=== PATIENT | female | born 1945 | race Two or more races ===

== ENCOUNTER 2024-07-06 18:33 | Inpatient (IN) | payer MEDICARE, OTHER ==
[~2024-07-06] VITALS: Ht 165.1 cm; Wt 110.0 kg
--- NOTE | 2024-07-06 19:05 | ED.PDOC ---
History of Present Illness HPI Comments 79-year-old female with PMHx A-Fib, HTN brought in by EMS presents with a chief complaint of SOB x 1.5 weeks. Patient states that she was at [facility] due to feeling SOB for the past week and a half. Patient was seen, evaluated, had blood work, COVID and Flu swabs, and was diagnosed with Right Lob e Pneumonia. Patient was found to be in A-Fib which is when staff called 911. Patient was sating at 87% on room air and jumped up to 95% on 2L/NC. Patient was flu and COVID negative. No other symptoms or modifying factors present at this time. Chief Complaint: Shortness of Breath Time Seen by MD: 18:53 Reviewed Notes: Medications, Allergies Allergies: Coded Allergies: NO KNOWN ALLERGIES (Unverified , 07/06/24) Information Source: Patient, Emergency Med Personnel Mode of Arrival: EMS Severity: Moderate Timing: Days Duration: Intermittent Prehospital treatment: Oxygen, Other (BLOOD WORK) Past Medical History PAST MEDICAL HISTORY: AFIB, HTN Surgical History: Hysterectomy AUTOMATIC STACKER History: Denies all AUTOMATIC STACKER Hx Family History Family History: Reviewed,noncontributory to illness Social History Smoker: Non-Smoker Alcohol: Denies ETOH Use Drugs: Denies Drug Use Lives In: Home Constitutional: denies: chills, diaphoresis, fatigue, fever, malaise, sweats, weakness, others EENTM: denies: blurred vision, double vision, ear bleeding, ear discharge, ear drainage, ear pain, ear ringing, eye pain, eye redness, hearing loss, mouth pain, mouth swelling, nasal discharge, nose bleeding, nose congestion, nose pain, photophobia, tearing, throat pain, throat swelling, voice changes, others Respiratory: reports: shortness of breath; denies: cough, hemoptysis, orthopnea, SOB at rest, SOB with excertion, stridor, wheezing, others Cardiovascular: reports: others (A-FIB); denies: chest pain, dizzy spells, diaphoresis, Dyspnea on exertion, edema, irregular heart beat, left arm pain, lightheadedness, palpitations, PND, syncope Gastrointestinal: denies: abdomen distended, abdominal pain, blood streaked bowels, constipated, diarrhea, dysphagia, difficulty swallowing, hematemesis, melena, nausea, poor appetite, poor fluid intake, rectal bleeding, rectal pain, vomiting, others Genitourinary: denies: abnormal vagina bleeding, burning, dyspareunia, dysuria, flank pain, frequency, hematuria, incontinence, pain, , vagina discharge, urgency, others Neurological: denies: dizziness, fainting, headache, left sided numbness, left sided weakness, numbness, paresthesia, pre-existing deficit, right sided numbness, right sided weakness, seizure, speech problems, tingling, tremors, weakness, others Musculoskeletal: denies: back pain, gout, joint pain, joint swelling, muscle pain, muscle stiffness, neck pain, others Integumetry: denies: bruises, change in color, change in hair/nails, dryness, laceration, lesions, lumps, rash, wounds, others Allergic/Immunocompromised: denies: Difficulty Healing, Frequent Infections, Hives, Itching, others Hematologic/Lymphatic: denies: anemia, blood clots, easy bleeding, easy bruising, swollen glands, others Endocrine: denies: excessive hunger, excessive sweating, excessive thirst, excessive urination, flushing, intolerance to cold, intolerance to heat, unexplained weight gain, unexplained weight loss, others Psychiatric: denies: anxiety, bipolar disorder, depression, hopeless, panic disorder, schizophrenia, sleepless, suicidal, others All Other Systems: Reviewed and Negative Physical Exam General Appearance: Moderate Distress, Obese HEENT: Normal ENT Inspection, Pharynx Normal, TMs Normal Neck: Full Range of Motion, Non-Tender, Normal, Normal Inspection Respiratory: Chest Non-Tender, Lungs Clear, No Accessory Muscle Use, No Respiratory Distress, Normal Breath Sounds Cardiovascular: Irregular, No Edema, No JVD, No Murmur, No Gallop, Tachycardia Breast Exam: Deferred Gastrointestinal: No Organomegaly, Non Tender, No Pulsatile Mass, Normal Bowel Sounds, Soft Genitalia: Deferred Pelvic: Deferred Rectal: Deferred Extremities: No calf tenderness, Normal capillary refill, Pedal edema Musculoskeletal : Apperance: Normal 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 Was a procedure done?: No EKG EKG : Pulse Rate (adult): 126 Hamer: Normal Cardiac Rhythm: Afib Block: LBBB Hypertrophy: None ST: Normal Differential Dx Considerations may include: Generalized weakness, pneumonia, atrial fibrillation with rapid response X-Ray, Labs, Meds, VS Vital Signs Date Time Temp Pulse Resp B/P (MAP) Pulse Ox O2 Delivery O2 Flow Rate FiO2 07/06/24 19:25 97.2 118 33 154/77 (102) 97.2 07/06/24 19:09 126 07/06/24 19:02 126 07/06/24 18:45 97.3 134 20 169/106 (127) 95 Lab Test 07/06/24 19:41 Range/Units White Blood Count 13.3 H 4.4-10.8 10^3/uL Red Blood Count 4.31 4.0-5.20 10^6/uL Hemoglobin 13.1 12.2-16.2 g/dL Hematocrit 39.2 36.0-46.0 % Mean Corpuscular Volume 91.0 80.0-100.0 fL Mean Corpuscular Hemoglobin 30.4 28.0-32.0 pg Mean Corpuscular Hemoglobin Concent 33.4 32.0-36.0 g/dL Red Cell Distribution Width 13.3 11.8-14.3 % Platelet Count 471 H 140-450 10^3/uL Mean Platelet Volume 7.3 6.9-10.8 fL Neutrophils (%) (Auto) 96.5 H 37.0-80.0 % Lymphocytes (%) (Auto) 1.3 L 10.0-50.0 % Monocytes (%) (Auto) 2.0 0.0-12.0 % Eosinophils (%) (Auto) 0.0 0.0-7.0 % Basophils (%) (Auto) 0.2 0.0-2.0 % Neutrophils # (Auto) 12.8 H 1.6-8.6 10 ^3/uL Lymphocytes # (Auto) 0.2 L 0.4-5.4 10 ^3/uL Monocytes # (Auto) 0.3 0-1.3 10 ^3/uL Eosinophils # (Auto) 0 0-0.8 10 ^3/uL Basophils # (Auto) 0 0-0.2 10 ^3/uL Nucleated Red Blood Cells 0.1 % Sodium Level Pending Potassium Level Pending Chloride Level Pending Carbon Dioxide Level Pending Anion Gap Pending Blood Urea Nitrogen Pending Creatinine Pending Glomerular Filtration Rate Calc Pending BUN/Creatinine Ratio Pending Serum Glucose Pending Calcium Level Pending Total Bilirubin Pending Aspartate Amino Transferase (AST) Pending Alanine Aminotransferase (ALT) Pending Alkaline Phosphatase Pending Total Protein Pending Albumin Pending The patient's CBC shows an elevated white blood cell count of 13.3 The rest of the CBC is within normal limits At this time the chemistry level is pending The patient was being admitted with a diagnosis of atrial fibrillation with rapid response All tests were done over at the facility so at this time the patient was being admitted. Images Reviewed?: Images reviewed and evaluated by me Time of 1ST Reevaluation: 19:23 Reevaluation 1ST: Unchanged Patient Education/Counseling: Diagnosis, Treatment, Prognosis Family Education/Counseling: No Family Present Departure 1 Departure Time of Disposition: 20:38 Impression: Primary Impression: Atrial fibrillation with rapid ventricular response Additional Impression: Pneumonia Qualified Codes: J18.9 - Pneumonia, unspecified organism Disposition: ADMITTED INPATIENT Admit to: Tele Condition: Fair Critical Care Note Critical Care Time?: Yes (45 min-critical care time only) Stability Stability form required: Yes Unstable for transfer: Telemetry monitoring (Telemetry monitoring required), ED Physician Assesment (Clinical assesment) Heart Score Heart Score: Heart Score Response (Comments) Value History N/A 0 EKG N/A 0 Age N/A 0 Risk Factors N/A 0 Troponin N/A 0 Total 0 I personally scribed for ALYCIA RUIZ MD ([email or web address]) on 07/06/24 at 19:05. Electronically submitted by Telly Clifton ([email or web address]). I personally scribed for ALYCIA RUIZ MD ([email or web address]) on 07/06/24 at 19:09. Electronically submitted by Telly Clifton ([email or web address]). ALYCIA RUIZ MD Jul 06, 2024 19:05
--- NOTE | 2024-07-06 19:06 | ECG ---
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
[2024-07-06] MEDS ORDERED: NITROGLYCERIN 0.4 MG SL TAB SL PRN (19:30)
[2024-07-06] MEDS ORDERED: MORPHINE SULFATE INJ 2 MG/ml SYRG IV PRN (19:30)
[2024-07-06 19:52] LABS: Basophils # (auto) 0 10 ^3/uL (0-0.2); Basophils % (auto) 0.2 % (0.0-2.0); Eosinophils # (auto) 0 10 ^3/uL (0-0.8); Hematocrit 39.2 % (36.0-46.0); Hemoglobin 13.1 g/dL (12.2-16.2); Lymphocytes # (auto) 0.2 10 ^3/uL (0.4-5.4); Lymphocytes % (auto) 1.3 % (10.0-50.0); Mean Corpuscular Hemoglobin 30.4 pg (28.0-32.0); Mean Corpuscular Hgb Conc. 33.4 g/dL (32.0-36.0); Monocytes # (auto) 0.3 10 ^3/uL (0-1.3); Neutrophils # (auto) 12.8 10 ^3/uL (1.6-8.6); Neutrophils % (auto) 96.5 % (37.0-80.0); Nucleated Red Blood Cells % 0.1 %; Platelet Count (auto) 471 10^3/uL (140-450); Red Blood Cells 4.31 10^6/uL (4.0-5.20); Red Cell Distribution Width 13.3 % (11.8-14.3); White Blood Cell 13.3 10^3/uL (4.4-10.8)
--- NOTE | 2024-07-06 20:13 | DVH ---
EXAM: XY CHEST PORTABLE TECHNIQUE: Single frontal chest radiograph CLINICAL HISTORY: Acute respiratory failure COMPARISON: None Findings/Impression: Frontal chest radiograph demonstrates no acute osseous or superficial soft tissue abnormalities. The trachea is midline. Borderline cardiomegaly. Bibasilar atelectasis. No pneumothorax, pleural effusions, or consolidations.
[2024-07-06 20:20] LABS: Alanine Aminotransferase 26 U/L (7-40); Anion Gap 12 (5-15); Aspartate Aminotransferase 30 U/L (13-40); BUN/Creatinine Ratio 25.2 (10.0-20.0); Bilirubin, Total 0.4 mg/dL (0.2-1.0); Calcium 9.3 mg/dL (8.7-10.4); Carbon Dioxide 23 mmol/L (20-31); Chloride 101 mmol/L (98-107)
[2024-07-06 20:21] LABS: Total Protein 5.8 g/dL (5.7-8.2)
[2024-07-06] MEDS: DEXTROSE (50%) 50ML SYRG IV ONE (20:30)
[2024-07-06] MEDS: AMIODARONE BOLUS KIT 100 ML IV ONE (20:36)
[2024-07-06 20:51] LABS: Albumin 2.9 g/dL (3.2-4.8); Alkaline Phosphatase 125 U/L (46-116); Blood Urea Nitrogen 36 mg/dL (9-23); Glucose 206 mg/dL (74-106); Potassium 3.3 mmol/L (3.5-5.1); Sodium 136 mmol/L (136-145)
[2024-07-06] MEDS: AMIODARONE 360mg/200mL PREMIX 200 ML IV ONE (20:51)
[2024-07-06] MEDS: InsuLIN REG 1unit/0.01ml Soln (100units/ml) SC ONE (21:51)
[2024-07-06] MEDS: ACCU-CHEK COMFORT CURVE STRIP VI ONE (21:57)
[2024-07-06] MEDS: FUROSEMIDE 40 MG/4 ML VIAL IV SCH (22:12)
[2024-07-06] MEDS: cefTRIAXone 1GM/50ML D5W 50 ML IV SCH (22:16)
[2024-07-06] MEDS: POTASSIUM CHL 20 Meq TABLET PO ONE ×2 (22:23→22:33)
[2024-07-06 23:24] VITALS: BP 120/68; PULSE 78; RESP 18; TEMP 98.4; O2SAT 97
[2024-07-06 23:49] VITALS: PULSE 100; RESP 20; O2SAT 94
[2024-07-06] MEDS: IPRATROPIUM BROM 0.5 MG/2.5ML INH SOL NEB SCH (23:49)
[2024-07-06] MEDS: ALBUTEROL SULF 2.5 MG/0.5ML(0.5%) NEB SOLN NEB SCH (23:49)
[2024-07-06 23:57] VITALS: PULSE 118; RESP 20; O2SAT 99
[2024-07-07] VITALS (17 sets, daily range): BP systolic 110–158; BP diastolic 60–80; PULSE 70–118; RESP 18–21; TEMP 97.2–98.4; O2SAT 93–99
[2024-07-07] MEDS ORDERED: MET25T PO (00:07)
[2024-07-07] MEDS ORDERED: FENO160T PO (00:07)
[2024-07-07] MEDS ORDERED: METF-372 PO (00:07)
[2024-07-07] MEDS ORDERED: BENA-36 PO (00:07)
[2024-07-07] MEDS ORDERED: ATOR20TA50 PO (00:07)
[2024-07-07] MEDS ORDERED: HYDR50TA47 PO (00:07)
[2024-07-07] MEDS ORDERED: DILT120C41 PO (00:07)
[2024-07-07] MEDS: ENOXAPARIN SOD 40 MG/0.4 ML SYRINGE SC ONE (00:47)
[2024-07-07] MEDS: AMIODARONE 360mg/200mL PREMIX 200 ML IV SCH ×2 (01:17→18:05)
[2024-07-07 06:35] LABS: Basophils # (auto) 0 10 ^3/uL (0-0.2); Eosinophils # (auto) 0 10 ^3/uL (0-0.8); Hematocrit 34.5 % (36.0-46.0); Hemoglobin 11.6 g/dL (12.2-16.2); Lymphocytes # (auto) 0.4 10 ^3/uL (0.4-5.4); Lymphocytes % (auto) 3.4 % (10.0-50.0); Mean Corpuscular Hemoglobin 30.6 pg (28.0-32.0); Mean Corpuscular Hgb Conc. 33.6 g/dL (32.0-36.0); Mean Corpuscular Volume 91.1 fL (80.0-100.0); Monocytes # (auto) 0.5 10 ^3/uL (0-1.3); Monocytes % (auto) 4.3 % (0.0-12.0); Neutrophils # (auto) 11.1 10 ^3/uL (1.6-8.6); Neutrophils % (auto) 92.3 % (37.0-80.0); Platelet Count (auto) 460 10^3/uL (140-450); Red Blood Cells 3.78 10^6/uL (4.0-5.20); Red Cell Distribution Width 13.2 % (11.8-14.3); White Blood Cell 12.1 10^3/uL (4.4-10.8)
[2024-07-07 06:55] LABS: Alanine Aminotransferase 17 U/L (7-40); Alkaline Phosphatase 107 U/L (46-116); Anion Gap 9 (5-15); BUN/Creatinine Ratio 22.1 (10.0-20.0); Calcium 9.6 mg/dL (8.7-10.4); Carbon Dioxide 22 mmol/L (20-31); Chloride 104 mmol/L (98-107)
[2024-07-07 06:56] LABS: Aspartate Aminotransferase 20 U/L (13-40); Total Protein 5.9 g/dL (5.7-8.2)
[2024-07-07 06:58] LABS: Bilirubin, Total 0.2 mg/dL (0.2-1.0); Blood Urea Nitrogen 32 mg/dL (9-23); Glucose 190 mg/dL (74-106); Potassium 3.2 mmol/L (3.5-5.1); Sodium 135 mmol/L (136-145)
[2024-07-07] MEDS ORDERED: AZITHROMYCIN 500MG/ 250ML 250 ML IV SCH ×2 (07:30→10:00)
[2024-07-07] MEDS ORDERED: POTASSIUM CHL 20 Meq TABLET PO ONE (07:30)
--- NOTE | 2024-07-07 07:44 | DVHHP2 ---
Admitting Diagnosis: Acute respiratory failure Afib with RVR History of Present Illness HPI 79 y.o. female with Afib, s/p 2 ablation procedures, last one 2 years ago was brought to the ER from [facility], where she was diagnosed with PNA and had EKG showing AFIB with RVR. Patient had repeat EKG in the ER with HR 134. Patient stated that she has had cough with SOB for over a week now. Denies CP. She has h/o HTN, DM, dyslipidemia. Patient has a bed sore in her lumbar area with redness and abrasions. Patient had b/l lower leg edema. She is not on Lasix. ECHO is pending Home Meds Reported Medications Atorvastatin Calcium (ATORVASTATIN CALCIUM) 20 Mg Tab, 1 TAB PO HS 07/07/24 Diltiazem Hcl (Dilt-Xr) 120 Mg Cap, 1 TAB PO DAILY 07/07/24 Fenofibrate (Fenofibrate) 160 Mg Tab, 1 TAB PO DAILY 07/07/24 Hydralazine Hcl (Hydralazine Hcl) 50 Mg Tab, 1 TAB PO BID 07/07/24 Benazepril Hcl (Benazepril Hcl) 20 Mg Tab, 1 TAB PO BID 07/07/24 Metoprolol Tartrate (Lopressor) 25 Mg Tb, 3 TAB PO BID 07/07/24 Metformin Hydrochloride (Metformin Hcl) 1,000 Mg Tab, 500 MG PO BID 07/07/24 Past Medical History Cardiac: AFIB, CHF, HTN, Hyperlipidemia Endocrine: NIDDM Patient Family History: FHx: heart disease G8 MOTHER, , Age: 60 years and older G8 FATHER, , Age: 60 years and older Review of Systems Pulmonary/Respiratory: Dyspnea, Cough Cardiovascular: Palpitations H&P Exam Vital Signs Vital Signs Date Time Temp Pulse Resp B/P (MAP) Pulse Ox O2 Delivery O2 Flow Rate FiO2 07/07/24 06:15 114 20 98 07/07/24 06:09 Nasal Cannula 4.0 07/07/24 06:09 36 07/07/24 05:33 110/60 07/07/24 05:00 98.4 98.4 General Appeara: Obese Head Exam: Normal inspection Neck Exam: Normal inspection Eye Exam: bilateral eye PERRL, bilateral eye EOMI Pulmonary/Respiratory: Accessory muscle use, Crackles Cardiovascular/Chest: Tachycardia Abdominal Exam: No tenderness Back Exam: Other (lumbar area -bed sore with redness and abrasions) Ankle Exam: bilateral ankle Swelling Foot: bilateral foot swelling Neuro/Mental St: Alert, Oriented Wounds lumbar area bed sore with redness and abrasions Labs/Xrays Labs Test 07/07/24 06:02 Range/Units White Blood Count 12.1 H 4.4-10.8 10^3/uL Red Blood Count 3.78 L 4.0-5.20 10^6/uL Hemoglobin 11.6 L 12.2-16.2 g/dL Hematocrit 34.5 #L 36.0-46.0 % Mean Corpuscular Volume 91.1 80.0-100.0 fL Mean Corpuscular Hemoglobin 30.6 28.0-32.0 pg Mean Corpuscular Hemoglobin Concent 33.6 32.0-36.0 g/dL Red Cell Distribution Width 13.2 11.8-14.3 % Platelet Count 460 H 140-450 10^3/uL Mean Platelet Volume 7.2 6.9-10.8 fL Neutrophils (%) (Auto) 92.3 H 37.0-80.0 % Lymphocytes (%) (Auto) 3.4 L 10.0-50.0 % Monocytes (%) (Auto) 4.3 0.0-12.0 % Eosinophils (%) (Auto) 0.0 0.0-7.0 % Basophils (%) (Auto) 0.0 0.0-2.0 % Neutrophils # (Auto) 11.1 H 1.6-8.6 10 ^3/uL Lymphocytes # (Auto) 0.4 0.4-5.4 10 ^3/uL Monocytes # (Auto) 0.5 0-1.3 10 ^3/uL Eosinophils # (Auto) 0 0-0.8 10 ^3/uL Basophils # (Auto) 0 0-0.2 10 ^3/uL Nucleated Red Blood Cells 0.0 % Sodium Level 135 L 136-145 mmol/L Potassium Level 3.2 L 3.5-5.1 mmol/L Chloride Level 104 98-107 mmol/L Carbon Dioxide Level 22 20-31 mmol/L Anion Gap 9 5-15 Blood Urea Nitrogen 32 H 9-23 mg/dL Creatinine 1.45 H 0.550-1.02 mg/dL Glomerular Filtration Rate Calc 37 >90 mL/min BUN/Creatinine Ratio 22.1 H 10.0-20.0 Serum Glucose 190 H 74-106 mg/dL Calcium Level 9.6 8.7-10.4 mg/dL Total Bilirubin 0.2 0.2-1.0 mg/dL Aspartate Amino Transferase (AST) 20 13-40 U/L Alanine Aminotransferase (ALT) 17 7-40 U/L Alkaline Phosphatase 107 46-116 U/L Total Protein 5.9 5.7-8.2 g/dL Albumin 3.0 L 3.2-4.8 g/dL Assessment/Plan Problem List: (1) Atrial fibrillation with rapid ventricular response (2) CHF exacerbation (3) Bed sore on buttock (4) Pneumonia (5) DM (diabetes mellitus) Plan Amiodarone drip, Lasix, Abx, ECHO, cardiology consult, Insulin SS Plan discussed with: Patient, Son VERN LUBIN MD Jul 07, 2024 07:44
[2024-07-07] MEDS: AMIODARONE 360mg/200mL PREMIX 200 ML IV ONE (07:50)
--- NOTE | 2024-07-07 07:50 | DVH ---
Procedure: CT CHEST WITHOUT CONTRAST Reason for study/Clinical History: PNA. Comparison Study: Chest radiograph dated 07/06/2024 Exam Date: 07/07/2024 07:26 AM TECHNIQUE: Multidetector CT of the chest was performed from the lung apices to the upper abdomen with out the use of intravenous contract. Axial, coronal and sagittal multiplanar reformats were performed . Radiation Dose Information: CT Dose: CTDI volume is 26.3 mGy. Dose-length product is 792.9 mGy*cm The dose indicators for CT are the volume Computed Tomography (CT) Dose Index (CTDIvol) and the Dose Length Product (DLP), and are measured in units of mGy and mGy-cm, respectively. These indicators are not patient dose, but values generated from the CT scanner acquisition factors. The report includes radiation exposure data for exposures received during this examination. FINDINGS: Lower neck: Normal thyroid. Lungs: Respiratory motion limits evaluation. There are opacities in the right middle lobe and bilater al lower lobes. Central airways: Patent. Pleura: No pleural effusion or significant pneumothorax. Heart/Vascular Structures: Normal heart size. Coronary artery calcifications. No pericardial effusion . Normal caliber thoracic aorta. Dilated main pulmonary artery measuring 3.8 cm. Lymph Nodes: There is a solid nodule in the superior mediastinum measuring 1.5 cm. Shotty mediastina l lymph nodes. Musculoskeletal: No acute osseous abnormality. Multilevel thoracic spondylosis. Soft tissues: There is low attenuating lesion in the left posterior chest wall measuring 1.4 cm proba randolph reflecting a sebaceous cyst. Upper abdomen: Limited portions of the upper abdomen are unremarkable. IMPRESSION: 1. Bilateral lower lobe and right middle lobe opacities which may reflect multifocal pneumonia in the appropriate clinical setting. 2. 5 cm nodule in the superior mediastinum may reflect an enlarged lymph node. Dedicated neck ultraso und recommended. Radiation optimization: All CT scans at this facility use at least one of these dose optimization dipesh hniques: automated exposure control mA and/or kV adjustment per patient size (includes targeted exam s where dose is matched to clinical indication) or iterative reconstruction.
[2024-07-07 08:09] LABS: INR 1.21 (0.9-1.15); Prothrombin Time 12.6 sec (9.3-11.8)
[2024-07-07] MEDS: ENOXAPARIN SOD 100 MG/1 ML SYRINGE SC SCH (08:42)
[2024-07-07] MEDS: METOPROLOL TARTRATE 25 MG TAB PO SCH (08:43)
[2024-07-07 08:55] LABS: Base Excess -2.7 mmol/L (-2.0-3.0)
[2024-07-07] MEDS: BENAZEPRIL HCL 10 MG TAB PO SCH (10:00)
[2024-07-07] MEDS: ENOXAPARIN SOD 120 MG/0.8 ML SYRINGE SC SCH (10:00)
[2024-07-07] MEDS ORDERED: METFORMIN HYDROCHLORIDE 500 MG PO SCH (10:00)
[2024-07-07] MEDS: hydrALAZINE HCL 25 MG TAB PO SCH (10:00)
[2024-07-07] MEDS ORDERED: PATIENTS OWN MEDICATION (Hydralazine Hcl 1 TAB) PO SCH (10:00)
[2024-07-07] MEDS: dilTIAZem 120MG ER CAP PO SCH (10:00)
[2024-07-07] MEDS ORDERED: PATIENTS OWN MEDICATION (Benazepril Hcl 1 TAB) PO SCH (10:00)
--- NOTE | 2024-07-07 14:55 | DVHINCON2 ---
Date of service: Jul 07, 2024 History of Present Illness 79 yo F with hx of persistent afib and AF ablation x 2, morbid obesity, HTN admitted for sob and afib rvr. pt has elevated troponin as well. Past Medical History reviewed Family History: FHx: heart disease G8 MOTHER, , Age: 60 years and older G8 FATHER, , Age: 60 years and older Allergies: Coded Allergies: NO KNOWN ALLERGIES (Unverified , 07/06/24) Home Meds Reported Medications Atorvastatin Calcium (ATORVASTATIN CALCIUM) 20 Mg Tab, 1 TAB PO HS 07/07/24 Diltiazem Hcl (Dilt-Xr) 120 Mg Cap, 1 TAB PO DAILY 07/07/24 Fenofibrate (Fenofibrate) 160 Mg Tab, 1 TAB PO DAILY 07/07/24 Hydralazine Hcl (Hydralazine Hcl) 50 Mg Tab, 1 TAB PO BID 07/07/24 Benazepril Hcl (Benazepril Hcl) 20 Mg Tab, 1 TAB PO BID 07/07/24 Metoprolol Tartrate (Lopressor) 25 Mg Tb, 3 TAB PO BID 07/07/24 Metformin Hydrochloride (Metformin Hcl) 1,000 Mg Tab, 500 MG PO BID 07/07/24 Current Medications Current Medications Medications (Trade) Dose Ordered Sig/Nicholas Route PRN Reason Start Time Stop Time Status Last Admin Nitroglycerin (Ntrostat Sublingual) 0.4 mg Q5MINP PRN SL FOR CHEST PAIN 07/06/24 19:30 Morphine Sulfate 2 mg Q30M PRN IV FOR CHEST PAIN 07/06/24 19:30 Ceftriaxone Sodium 50 ml @ 100 mls/hr DAILY IV 07/06/24 19:59 07/07/24 08:42 Albuterol (Ventolin Medneb) 2.5 mg Q6HR NEB 07/07/24 00:00 07/07/24 07:45 DC 07/07/24 06:09 Ipratropium [place] (Atrovent Medneb) 0.5 mg Q6HP NEB 07/07/24 00:00 07/07/24 11:24 Furosemide (Lasix Injection) 40 mg TID IV 07/06/24 22:00 07/07/24 07:33 DC 07/06/24 22:12 Atorvastatin Calcium (Lipitor) 20 mg HS PO 07/07/24 22:00 Diltiazem HCl (Cardizem ER Capsule) 120 mg DAILY PO 07/07/24 10:00 Metoprolol Tartrate (Lopressor Tablet) 75 mg BID PO 07/07/24 10:00 07/07/24 08:43 Patient Own Medication 1 tab BID PO 07/07/24 10:00 UNV Patient Own Medication 1 tab DAILY PO 07/07/24 10:00 Patient Own Medication 1 tab BID PO 07/07/24 10:00 UNV Patient Own Medication 500 mg BID PO 07/07/24 10:00 07/07/24 07:40 DC Azithromycin 250 ml @ 125 mls/hr DAILY IV 07/07/24 07:30 07/07/24 07:40 DC Enoxaparin Sodium (Lovenox) 110 mg Q12HR SC 07/07/24 10:00 07/07/24 09:17 DC 07/07/24 08:42 Hydralazine HCl (Apresoline Tablet) 50 mg BID PO 07/07/24 10:00 Benazepril HCl (Lotensin Tablet) 20 mg BID PO 07/07/24 10:00 Azithromycin 250 ml @ 125 mls/hr DAILY IV 07/07/24 10:00 Hold Enoxaparin Sodium (Lovenox) 110 mg Q12HR SC 07/07/24 10:00 Review of Systems 10 pt ros otherwise negative Vital Signs Vital Signs Date Time Temp Pulse Resp B/P (MAP) Pulse Ox O2 Delivery O2 Flow Rate FiO2 07/07/24 13:00 98.1 86 20 152/79 (103) 93 98.1 07/07/24 11:24 Nasal Cannula 4.0 07/07/24 11:24 36 Physical Exam nad s1 s2 irregular ctab soft nt/nd +3 leg edema L > R, suspected octoberurner Labs/Diagnostic Data Labs Test 07/07/24 08:08 07/07/24 06:04 07/07/24 06:02 Range/Units Blood Gas Specimen Type Arterial Blood Gas Sample Site Right radial Blood Gas Patient Temperature 37.0 Arterial Blood Date Drawn [id number] Arterial Blood pH 7.424 7.350-7.450 Arterial Blood Partial Pressure CO2 32.7 32.0-45.0 mmHg Arterial Blood Partial Pressure O2 72.0 L 83.0-108.0 mmHg Arterial Blood HCO3 20.9 L 21.0-28.0 mmol/L Arterial Blood Oxygen Saturation 93.8 L 94.0-98.0 % Arterial Blood Base Excess -2.7 L -2.0-3.0 mmol/L Arterial Blood Oxyhemoglobin 93.2 L 94.0-98.0 % Arterial Blood Carboxyhemoglobin 0.3 L 0.5-1.5 % Arterial Blood Methemoglobin 0.3 0.0-1.5 % Veto Test Yes Blood Gas Total Hemoglobin 12.60 12.0-16.0 g/dL Blood Gas Modality Nasal cannula FiO2 % 36.0 Prothrombin Time 12.6 H 9.3-11.8 sec Prothrombin Time INR 1.21 H 0.9-1.15 White Blood Count 12.1 H 4.4-10.8 10^3/uL Red Blood Count 3.78 L 4.0-5.20 10^6/uL Hemoglobin 11.6 L 12.2-16.2 g/dL Hematocrit 34.5 #L 36.0-46.0 % Mean Corpuscular Volume 91.1 80.0-100.0 fL Mean Corpuscular Hemoglobin 30.6 28.0-32.0 pg Mean Corpuscular Hemoglobin Concent 33.6 32.0-36.0 g/dL Red Cell Distribution Width 13.2 11.8-14.3 % Platelet Count 460 H 140-450 10^3/uL Mean Platelet Volume 7.2 6.9-10.8 fL Neutrophils (%) (Auto) 92.3 H 37.0-80.0 % Lymphocytes (%) (Auto) 3.4 L 10.0-50.0 % Monocytes (%) (Auto) 4.3 0.0-12.0 % Eosinophils (%) (Auto) 0.0 0.0-7.0 % Basophils (%) (Auto) 0.0 0.0-2.0 % Neutrophils # (Auto) 11.1 H 1.6-8.6 10 ^3/uL Lymphocytes # (Auto) 0.4 0.4-5.4 10 ^3/uL Monocytes # (Auto) 0.5 0-1.3 10 ^3/uL Eosinophils # (Auto) 0 0-0.8 10 ^3/uL Basophils # (Auto) 0 0-0.2 10 ^3/uL Nucleated Red Blood Cells 0.0 % Sodium Level 135 L 136-145 mmol/L Potassium Level 3.2 L 3.5-5.1 mmol/L Chloride Level 104 98-107 mmol/L Carbon Dioxide Level 22 20-31 mmol/L Anion Gap 9 5-15 Blood Urea Nitrogen 32 H 9-23 mg/dL Creatinine 1.45 H 0.550-1.02 mg/dL Glomerular Filtration Rate Calc 37 >90 mL/min BUN/Creatinine Ratio 22.1 H 10.0-20.0 Serum Glucose 190 H 74-106 mg/dL Calcium Level 9.6 8.7-10.4 mg/dL Magnesium Level 2.0 1.6-2.6 mg/dL Total Bilirubin 0.2 0.2-1.0 mg/dL Aspartate Amino Transferase (AST) 20 13-40 U/L Alanine Aminotransferase (ALT) 17 7-40 U/L Alkaline Phosphatase 107 46-116 U/L Troponin I High Sensitivity 216 *H </=34 ng/L Total Protein 5.9 5.7-8.2 g/dL Albumin 3.0 L 3.2-4.8 g/dL Assessment afib rvr severe obesity hx of AF ablation HTN HL nstemi severe venous disease, octoberurn Plan/Recommendation iv amio cont anticoag check echo pt has nstemi EP consult moderate CKD noted, observation outpt venous workup and treatment as indicated Plan discussed with: Patient CASTILLORODRIGUE MD Jul 07, 2024 14:55
--- NOTE | 2024-07-07 15:05 | DVHSR ---
APPROVED REPORT EXAM: Two-dimensional and M-mode echocardiogram with Doppler and color Doppler. Blood Pressure: 110/60 mmHg INDICATION Afib RVR RISK FACTORS Height: 110, Weight: 60 DIMENSIONS LVDd5.0 (3.8-5.7cm)LA (2D)4.3 (1.9-4.0cm)Aortic Root3.8 (2.0-3.7cm) LVDs3.4 (2.5-4.0cm)LA (MM) (1.9-4.0cm)Aortic Cusp Exc1.7 (1.5-2.0cm) EF (%) 55.0 (55-70%)Rt. Atrium3.0 (1.9-4.0cm)Asc. Aorta cm IVSd1.2 (0.7-1.1cm)RV (D) (1.8-2.4cm) PWd1.2 (0.7-1.1cm) Mitral Valve MitralMitral Stenosis E wave1.24m/sMV Mean GR.3mmHg A wavem/sMV Peak GR.91mmHg E/A ratio0.02D MVAcm2 DECEL [id number] 1/2 Timems Aortic Valve Aortic ValveAortic Stenosis V10.84m/Itzel Mean GR.6mmHg V21.58m/Itzel Peak GR.10mmHg LVOT Diameter2.4 (1.8-2.4cm)Doppler AVA2.40cm2 Pulmonic Valve V20.68m/s Tricuspid Valve TR Velocity2.94m/s [id number] Conclusion lvef 55% RV enlarged biatrial enlargement
--- NOTE | 2024-07-07 15:32 | MEDREC ---
[facility] Intervention Section I [facility] Intervention: Review courses of therapy (PLEASE CONSIDER SWITCHING AZITHROMYCIN TO DOXYCYCLINE DUE TO QTc OF 513.) WENDY ELENA PHARMACIST Jul 07, 2024 15:32
--- NOTE | 2024-07-07 16:12 | DVHPN2 ---
Progress Note Date Seen: Jul 07, 2024 Medical Necessity Reason Pt with a Central, PICC or Fol: Yes The following are medically ne: Michele Catheter Reason for michele catheter: Strict I&O Subjective Patient reports: No new complaints Review of Systems: HEENT:Normal, CVS:Normal, RESPIRATORY:Normal, GI:Normal, :Normal, MSK:Normal, NEURO:Normal Objective vital signs Vital Sign Date Time Temp Pulse Resp B/P (MAP) Pulse Ox O2 Delivery O2 Flow Rate FiO2 07/07/24 13:00 98.1 86 20 152/79 (103) 93 98.1 07/07/24 11:24 Nasal Cannula 4.0 07/07/24 11:24 36 Total Intake and Output 07/06/24 07/06/24 07/07/24 15:00 23:00 07:00 Intake Total 133.33 ml 240 ml Output Total 300 ml Balance 133.33 ml -60 ml medications Current Medications Medications Dose Ordered Sig/Nicholas Route Start Time Stop Time Status Last Admin Dose Admin Nitroglycerin 0.4 mg Q5MINP PRN SL 07/06/24 19:30 Morphine Sulfate 2 mg Q30M PRN IV 07/06/24 19:30 Ceftriaxone Sodium 50 ml @ 100 mls/hr DAILY IV 07/06/24 19:59 07/07/24 08:42 100 MLS/HR Ipratropium [place] 0.5 mg Q6HP NEB 07/07/24 00:00 07/07/24 11:24 0.5 MG Atorvastatin Calcium 20 mg HS PO 07/07/24 22:00 Diltiazem HCl 120 mg DAILY PO 07/07/24 10:00 Metoprolol Tartrate 75 mg BID PO 07/07/24 10:00 07/07/24 08:43 75 MG Patient Own Medication 1 tab BID PO 07/07/24 10:00 UNV Patient Own Medication 1 tab DAILY PO 07/07/24 10:00 Patient Own Medication 1 tab BID PO 07/07/24 10:00 UNV Hydralazine HCl 50 mg BID PO 07/07/24 10:00 Benazepril HCl 20 mg BID PO 07/07/24 10:00 Azithromycin 250 ml @ 125 mls/hr DAILY IV 07/07/24 10:00 Hold Enoxaparin Sodium 110 mg Q12HR SC 07/07/24 10:00 Examination: GENERAL:Normal, HEENT:Normal, NECK:Normal, LUNGS:Normal, LUNGS:Abnormal (on oxygen, rales), CVS:Normal, ABDOMEN:Normal, MSK:Normal, SKIN:Normal, NEURO:Normal, :Normal laboratory and microbiology Laboratory Tests 07/07/24 06:02 Test 07/07/24 06:02 Range/Units Serum Glucose 190 H 74-106 mg/dL Problem List/Assessment/Plan Problem List/Assessment/Plan #1 acute on chronic diastolic heart failure: lasix iv #2 dm: ssi '#3 htn #4 a fib with rvr: cont meds, cardio eval #5 morbid obesity #6 ckd stage 3 #7 ? pneumonia: iv rocephin advance care planning- full code-time spent 19 mins Plan discussed with: Patient My Orders My Orders Orders - CHARLIE TOBIN MD Procedure Category Date Status Time Cleanse Wound With ALEIDA 07/07/24 In Process Mild Soap A 11:08 Benazepril Hcl Tablet PHA 07/08/24 Transmitted (Lotensin Tablet) 10:00 Potassium Effervesent PHA 07/07/24 Transmitted Tab (Klor-Con/Ef) 16:15 * Cardiology Consult CONS 07/07/24 Transmitted 16:02 Urinalysis LAB 07/07/24 Uncollected 16:02 Furosemide Injection PHA 07/07/24 Transmitted (Lasix Injection) 16:15 Furosemide Injection PHA 07/08/24 Transmitted (Lasix Injection) 10:00 Potassium Effervesent PHA 07/08/24 Transmitted Tab (Klor-Con/Ef) 10:00 Glucose Blood PHA 07/07/24 Transmitted (Accu-Chek Comfort 17:00 Mild Sliding Scale PHA 07/07/24 Transmitted 17:00 Dextrose 50% Syringe PHA 07/07/24 Transmitted 16:15 Complete Blood Count LAB 07/08/24 Verified 06:00 Comprehensive LAB 07/08/24 Verified Metabolic Panel 06:00 B-Type Natriuretic LAB 07/08/24 Verified Peptide 05:00 Thyroid Stimulating LAB 07/08/24 Verified Hormone 05:00 Guaifenesin-Dextromet PHA 07/07/24 Transmitted Liquid (Robitussin 16:15 Date of Service: Jul 07, 2024 Billing Provider: CHARLIE TOBIN MD Common Visit Codes: [id number] INP/OBS CARE(HIGH) Secondary Visit Codes: [id number] CARE PLAN 30 MINUTES CHARLIE TOBIN MD Jul 07, 2024 16:12
[2024-07-07] MEDS ORDERED: DEXTROSE (50%) 50ML SYRG IV PRN (16:15)
[2024-07-07] MEDS: ACCU-CHEK COMFORT CURVE STRIP VI SCH (17:00)
[2024-07-07] MEDS: POTASSIUM EFFERVESENT TAB 25 MEQ PO ONE (17:44)
[2024-07-07] MEDS: FUROSEMIDE 40 MG/4 ML VIAL IV ONE (17:44)
[2024-07-07] MEDS: InsuLIN REG 1unit/0.01ml Soln (100units/ml) SC SCH (17:44)
[2024-07-07] MEDS: guaiFENesin-DM 100/10mg/5ml SYR PO PRN (17:44)
[2024-07-07] MEDS: ATORVASTATIN 20 MG TAB PO SCH (21:31)
[2024-07-08] VITALS (17 sets, daily range): BP systolic 91–148; BP diastolic 54–90; PULSE 68–104; RESP 16–21; TEMP 98–98.7; O2SAT 94–99
[2024-07-08 06:25] LABS: Hemoglobin 11.8 g/dL (12.2-16.2)
[2024-07-08 06:29] LABS: Hematocrit 34.6 % (36.0-46.0); Mean Corpuscular Hemoglobin 30.6 pg (28.0-32.0); Platelet Count (auto) 476 10^3/uL (140-450); Red Blood Cells 3.85 10^6/uL (4.0-5.20); Red Cell Distribution Width 13.1 % (11.8-14.3); White Blood Cell 11.3 10^3/uL (4.4-10.8)
[2024-07-08 06:33] LABS: Basophils % (manual) 0 (0.0-2.0); Blast Cells 0; Eosinophils % (manual) 0 (0-7); Metamyelocytes % 0; Myelocytes % 0; Promyelocytes % 0; Reactive Lymphocytes 0
[2024-07-08 06:43] LABS: Alanine Aminotransferase 23 U/L (7-40); Albumin 2.8 g/dL (3.2-4.8); Alkaline Phosphatase 125 U/L (46-116); Anion Gap 10 (5-15); Aspartate Aminotransferase 32 U/L (13-40); BUN/Creatinine Ratio 25.8 (10.0-20.0); Blood Urea Nitrogen 34 mg/dL (9-23); Calcium 9.7 mg/dL (8.7-10.4); Carbon Dioxide 25 mmol/L (20-31); Chloride 101 mmol/L (98-107); Glucose 160 mg/dL (74-106); Potassium 2.9 mmol/L (3.5-5.1); Sodium 136 mmol/L (136-145); Total Protein 5.7 g/dL (5.7-8.2)
[2024-07-08 06:44] LABS: Bilirubin, Total 0.3 mg/dL (0.2-1.0)
[2024-07-08 07:11] LABS: Band Neutrophils % (manual) 6; Lymphocytes % (manual) 17 (10.0-50.0); Monocytes % (manual) 5 (0-12); Platelet Estimate Increased
[2024-07-08 07:12] LABS: Urine Bacteria FEW /hpf (None Seen); Urine Blood 1+ /uL (Negative); Urine Clarity Turbid (Clear); Urine Color Light-Yellow (Yellow); Urine Hyaline Cast FEW /lpf (0 - 2); Urine Mucus FEW (None Seen); Urine Protein, UAD 2+ (Negative); Urine Squamous Epithelial Cell FEW /hpf (<5); Urine Urobilinogen Normal (Negative); Urine WBC 49 /HPF (0-5)
[2024-07-08] MEDS: POTASSIUM EFFERVESENT TAB 25 MEQ PO SCH (09:37)
[2024-07-08] MEDS: FUROSEMIDE 20 MG/2 ML VIAL IV SCH (09:39)
[2024-07-08] MEDS: BENAZEPRIL HCL 10 MG TAB PO SCH (09:39)
--- NOTE | 2024-07-08 13:30 | DVHPN2 ---
Reviewed: Care Plan, H&P, Labs, Medications, Previous Orders, Radiology Changes from previous H/P or p: No Changes Objective Vitals Vital Signs Date Time Temp Pulse Resp B/P (MAP) Pulse Ox O2 Delivery O2 Flow Rate FiO2 07/08/24 11:41 93 18 98 07/08/24 11:35 Nasal Cannula 4.0 07/08/24 11:35 36 07/08/24 10:38 91/54 07/08/24 09:00 98.7 98.7 Intake/Output Intake and Output 07/08/24 07:00 Intake Total 1924 ml Output Total 1350 ml Balance 574 ml Intake Oral 1724 ml IV Total 200 ml Output Urine Total 1350 ml # Bowel Movements 1 Medications Current Medications Medications Dose Ordered Sig/Nicholas Route Start Time Stop Time Status Last Admin Dose Admin Nitroglycerin 0.4 mg Q5MINP PRN SL 07/06/24 19:30 Morphine Sulfate 2 mg Q30M PRN IV 07/06/24 19:30 Ceftriaxone Sodium 50 ml @ 100 mls/hr DAILY IV 07/06/24 19:59 07/08/24 09:40 100 MLS/HR Ipratropium [place] 0.5 mg Q6HP NEB 07/07/24 00:00 07/08/24 11:35 0.5 MG Atorvastatin Calcium 20 mg HS PO 07/07/24 22:00 07/07/24 21:31 20 MG Diltiazem HCl 120 mg DAILY PO 07/07/24 10:00 07/08/24 09:38 120 MG Metoprolol Tartrate 75 mg BID PO 07/07/24 10:00 07/08/24 09:38 75 MG Patient Own Medication 1 tab BID PO 07/07/24 10:00 UNV Patient Own Medication 1 tab BID PO 07/07/24 10:00 UNV Azithromycin 250 ml @ 125 mls/hr DAILY IV 07/07/24 10:00 Hold Enoxaparin Sodium 110 mg Q12HR SC 07/07/24 10:00 07/08/24 09:40 110 MG Benazepril HCl 20 mg DAILY PO 07/08/24 10:00 07/08/24 09:39 20 MG Furosemide 20 mg DAILY IV 07/08/24 10:00 07/08/24 09:39 20 MG Potassium Bicarbonate 25 meq DAILY PO 07/08/24 10:00 07/08/24 09:37 25 MEQ Diagnostic Test (Pha) 1 strip ACHS 07/07/24 17:00 07/08/24 11:24 1 STRIP Insulin Human Regular ACHS SC 07/07/24 17:00 07/08/24 11:25 3 UNITS Dextrose 50 ml UD PRN IV 07/07/24 16:15 Guaifenesin/ Dextromethorphan 10 ml Q4HP PRN PO 07/07/24 16:15 07/08/24 01:55 10 ML Laboratory Results Laboratory Tests 07/08/24 05:31 Chemistry Test 07/08/24 05:31 Albumin 2.8 g/dL (3.2-4.8) L Calcium Level 9.7 mg/dL (8.7-10.4) Total Protein 5.7 g/dL (5.7-8.2) Cardiac Markers Test 07/08/24 05:31 B-Type Natriuretic Peptide 259.60 pg/mL (0-100) LFT Test 07/08/24 05:31 Alanine Aminotransferase (ALT) 23 U/L (7-40) Alkaline Phosphatase 125 U/L (46-116) H Aspartate Amino Transferase (AST) 32 U/L (13-40) Total Bilirubin 0.3 mg/dL (0.2-1.0) HgA1c, TSH Test 07/08/24 05:31 Hemoglobin A1c 7.3 % A1C (<5.7) H Thyroid Stimulating Hormone (TSH) 0.17 uIU/mL (0.55-4.78) L Urinalysis Test 07/08/24 01:13 Urine Color Light-yellow (Yellow) Urine Clarity Turbid (Clear) H Urine pH 6.0 (5.0-9.0) Urine Specific [place] 1.010 (1.001-1.035) Urine Protein 2+ (Negative) H Urine Ketones Negative (Negative) Urine Blood 1+ /uL (Negative) H Urine Nitrite Negative (Negative) Urine Bilirubin Negative (Negative) Urine Urobilinogen Normal mg/dL (Negative) Urine Leukocyte Esterase 2+ /uL (Negative) Urine RBC 3 /hpf (0 - 4) Urine Microscopic WBC 49 /HPF (0-5) H Urine Squamous Epithelial Cells Few /hpf (<5) Urine Bacteria Few /hpf (None Seen) H Urine Hyaline Casts Few /lpf (0 - 2) Urine Mucus Few (None Seen) Urine Glucose 1+ mg/dL (Normal) H Microbiology Microbiology Date/Time Source Procedure Growth Status 07/07/24 09:59 Blood Blood Culture - Preliminary NO GROWTH AFTER 24 HOURS OF INCUBATION. Resulted Labs and/or images reviewed: Labs reviewed by me, Image(s) reviewed by me Assessment/Plan Assessment/Plan Covering for Dr. Ruano #1 acute on chronic diastolic heart failure: lasix iv #2 dm: ssi '#3 htn #4 a fib with rvr: cont meds, cardio eval #5 morbid obesity #6 ckd stage 3 #7 ? pneumonia: iv rocephin # non ST-elevation MS # UTI: Urine cultures Rocephin Plan discussed with: Patient Date of Service: Jul 08, 2024 Billing Provider: HIRA ROMERO MD Common Visit Codes: [id number] INP/OBS CARE(HIGH) HIRA ROMERO MD Jul 08, 2024 13:30
--- NOTE | 2024-07-08 17:14 | DVHINCON2 ---
Date of service: Jul 08, [address] Magaña Reason for Consultation CHF/AFIB History of Present Illness This is a 79-year old female known outside to our practice who initially presented (07/06/2024) with reported shortness of breath for approximately 1.5 weeks prior to arrival. Reports she underwent evaluation at [facility] and found in atrial fibrillation with RVR subsequently referred to ED for further management. Upon ED arrival, initial 12-lead electrocardiogram was performed revealing atrial fibrillation with a ventricular rate of 126 bpm, LBBB, with no acute ischemic changes subsequently initiated on Amiodarone infusion. Initial HS troponin level found elevated at 216. BNP level found elevated at 259 which initial chest x-ray revealed no evidence for vascular congestion. Echocardiogram (07/07/2024) was performed revealing a preserved LVEF of 55% with bi-atrial enlargement, RV enlargement, with an RVSP of 45mmHg. Initial WBC count was found elevated which CT imaging of the chest revealed presence of multifocal pneumonia in addition to presence of an underling urinary tract infection. Initial potassium level found to be 3.3 with a magnesium level of 2.0. Initial creatinine level of 1.43 with subsequent trend to 1.32. TSH level is 0.17 with an A1C level of 7.3. At present, denies any active chest pain, palpitations, dizziness, syncope, or any further cardiac related symptoms. As the patient presented with atrial fibrillation with RVR, Electrophysiology services have now been involved by primary team request for further evaluation and management. Past Medical History Reviewed Past Surgical History Reviewed Family History: FHx: heart disease G8 MOTHER, , Age: 60 years and older G8 FATHER, , Age: 60 years and older Allergies: Coded Allergies: NO KNOWN ALLERGIES (Unverified , 07/06/24) Home Meds Reported Medications Atorvastatin Calcium (ATORVASTATIN CALCIUM) 20 Mg Tab, 1 TAB PO HS 07/07/24 Diltiazem Hcl (Dilt-Xr) 120 Mg Cap, 1 TAB PO DAILY 07/07/24 Fenofibrate (Fenofibrate) 160 Mg Tab, 1 TAB PO DAILY 07/07/24 Hydralazine Hcl (Hydralazine Hcl) 50 Mg Tab, 1 TAB PO BID 07/07/24 Benazepril Hcl (Benazepril Hcl) 20 Mg Tab, 1 TAB PO BID 07/07/24 Metoprolol Tartrate (Lopressor) 25 Mg Tb, 3 TAB PO BID 07/07/24 Metformin Hydrochloride (Metformin Hcl) 1,000 Mg Tab, 500 MG PO BID 07/07/24 Current Medications Current Medications Medications (Trade) Dose Ordered Sig/Nicholas Route PRN Reason Start Time Stop Time Status Last Admin Atorvastatin Calcium (Lipitor) 20 mg HS PO 07/07/24 22:00 07/07/24 21:31 Benazepril HCl (Lotensin Tablet) 20 mg DAILY PO 07/08/24 10:00 07/08/24 09:39 Furosemide (Lasix Injection) 20 mg DAILY IV 07/08/24 10:00 07/08/24 09:39 Potassium Bicarbonate (Klor-Con/Ef) 25 meq DAILY PO 07/08/24 10:00 07/08/24 09:37 Diagnostic Test (Pha) (Accu-Chek Comfort Curve T) 1 strip ACHS 07/07/24 17:00 07/08/24 11:24 Insulin Human Regular (InsuLIN R) ACHS SC 07/07/24 17:00 07/08/24 11:25 Review of Systems A 14-point review of systems is negative unless otherwise noted above Vital Signs Vital Signs Date Time Temp Pulse Resp B/P (MAP) Pulse Ox O2 Delivery O2 Flow Rate FiO2 07/08/24 11:41 93 18 98 07/08/24 11:35 Nasal Cannula 4.0 07/08/24 11:35 36 07/08/24 10:38 91/54 07/08/24 09:00 98.7 98.7 Physical Exam Heart: S1 and S2 present. The patient is in atrial fibrillation (rate controlled) Lungs: Scattered rhonchi. Abdomen: Benign. Extremities: Distal pulses palpable, 2+. With evidence for peripheral edema Labs/Diagnostic Data Labs Test 07/08/24 11:16 07/08/24 05:31 07/08/24 01:13 07/07/24 08:08 Range/Units POC Glucose 172 H 70-106 mg/dl White Blood Count 11.3 H 4.4-10.8 10^3/uL Red Blood Count 3.85 L 4.0-5.20 10^6/uL Hemoglobin 11.8 L 12.2-16.2 g/dL Hematocrit 34.6 L 36.0-46.0 % Mean Corpuscular Volume 90.0 80.0-100.0 fL Mean Corpuscular Hemoglobin 30.6 28.0-32.0 pg Mean Corpuscular Hemoglobin Concent 34.0 32.0-36.0 g/dL Red Cell Distribution Width 13.1 11.8-14.3 % Platelet Count 476 H 140-450 10^3/uL Mean Platelet Volume 7.4 6.9-10.8 fL Neutrophils (%) (Auto) 37.0-80.0 % Lymphocytes (%) (Auto) 10.0-50.0 % Monocytes (%) (Auto) 0.0-12.0 % Basophils (%) (Auto) 0.0-2.0 % Neutrophils # (Auto) 1.6-8.6 10 ^3/uL Lymphocytes # (Auto) 0.4-5.4 10 ^3/uL Monocytes # (Auto) 0-1.3 10 ^3/uL Differential Total Cells Counted 100.0 100 Neutrophils % (Manual) 72 37.0-80.0 Band Neutrophils % (Manual) 6 Lymphocytes % (Manual) 17 10.0-50.0 Monocytes % (Manual) 5 0-12 Eosinophils % (Manual) 0 0-7 Basophils % (Manual) 0 0.0-2.0 Metamyelocytes % (manual) 0 Myelocytes % (Manual) 0 Promyelocytes % (Manual) 0 Blast Cells % (Manual) 0 Reactive Lymphocytes 0 Platelet Estimate Increased Sodium Level 136 136-145 mmol/L Potassium Level 2.9 L 3.5-5.1 mmol/L Chloride Level 101 98-107 mmol/L Carbon Dioxide Level 25 20-31 mmol/L Anion Gap 10 5-15 Blood Urea Nitrogen 34 H 9-23 mg/dL Creatinine 1.32 H 0.550-1.02 mg/dL Glomerular Filtration Rate Calc 42 >90 mL/min BUN/Creatinine Ratio 25.8 H 10.0-20.0 Serum Glucose 160 H 74-106 mg/dL Hemoglobin A1c 7.3 H <5.7 % A1C Calcium Level 9.7 8.7-10.4 mg/dL Total Bilirubin 0.3 0.2-1.0 mg/dL Aspartate Amino Transferase (AST) 32 13-40 U/L Alanine Aminotransferase (ALT) 23 7-40 U/L Alkaline Phosphatase 125 H 46-116 U/L B-Type Natriuretic Peptide 259.60 0-100 pg/mL Total Protein 5.7 5.7-8.2 g/dL Albumin 2.8 L 3.2-4.8 g/dL Thyroid Stimulating Hormone (TSH) 0.17 L 0.55-4.78 uIU/mL Urine Color Light-yellow Yellow Urine Clarity Turbid H Clear Urine pH 6.0 5.0-9.0 Urine Specific [place] 1.010 1.001-1.035 Urine Protein 2+ H Negative Urine Ketones Negative Negative Urine Blood 1+ H Negative /uL Urine Nitrite Negative Negative Urine Bilirubin Negative Negative Urine Urobilinogen Normal Negative mg/dL Urine Leukocyte Esterase 2+ Negative /uL Urine RBC 3 0 - 4 /hpf Urine Microscopic WBC 49 H 0-5 /HPF Urine Squamous Epithelial Cells Few <5 /hpf Urine Bacteria Few H None Seen /hpf Urine Hyaline Casts Few 0 - 2 /lpf Urine Mucus Few None Seen Urine Glucose 1+ H Normal mg/dL Blood Gas Specimen Type Arterial Blood Gas Sample Site Right radial Blood Gas Patient Temperature 37.0 Arterial Blood Date Drawn [id number] Arterial Blood pH 7.424 7.350-7.450 Arterial Blood Partial Pressure CO2 32.7 32.0-45.0 mmHg Arterial Blood Partial Pressure O2 72.0 L 83.0-108.0 mmHg Arterial Blood HCO3 20.9 L 21.0-28.0 mmol/L Arterial Blood Oxygen Saturation 93.8 L 94.0-98.0 % Arterial Blood Base Excess -2.7 L -2.0-3.0 mmol/L Arterial Blood Oxyhemoglobin 93.2 L 94.0-98.0 % Arterial Blood Carboxyhemoglobin 0.3 L 0.5-1.5 % Arterial Blood Methemoglobin 0.3 0.0-1.5 % Veto Test Yes Blood Gas Total Hemoglobin 12.60 12.0-16.0 g/dL Blood Gas Modality Nasal cannula FiO2 % 36.0 Test 07/07/24 06:04 07/07/24 06:02 Range/Units Prothrombin Time 12.6 H 9.3-11.8 sec Prothrombin Time INR 1.21 H 0.9-1.15 Eosinophils (%) (Auto) 0.0 0.0-7.0 % Eosinophils # (Auto) 0 0-0.8 10 ^3/uL Basophils # (Auto) 0 0-0.2 10 ^3/uL Nucleated Red Blood Cells 0.0 % Magnesium Level 2.0 1.6-2.6 mg/dL Troponin I High Sensitivity 216 *H </=34 ng/L Microbiology Date/Time Source Procedure Growth Status 07/07/24 09:59 Blood Blood Culture - Preliminary NO GROWTH AFTER 24 HOURS OF INCUBATION. Resulted Plan/Recommendation ASSESSMENT: This is a 79-year old female known outside to our practice who initially presented (07/06/2024) with reported shortness of breath for approximately 1.5 weeks prior to arrival. Reports she underwent evaluation at [facility] and found in atrial fibrillation with RVR subsequently referred to ED for further management. Upon ED arrival, initial 12-lead electrocardiogram was performed revealing atrial fibrillation with a ventricular rate of 126 bpm, LBBB, with no acute ischemic changes subsequently initiated on Amiodarone infusion. Initial HS troponin level found elevated at 216. BNP level found elevated at 259 which initial chest x-ray revealed no evidence for vascular congestion. Echocardiogram (07/07/2024) was performed revealing a preserved LVEF of 55% with bi-atrial enlargement, RV enlargement, with an RVSP of 45mmHg. Initial WBC count was found elevated which CT imaging of the chest revealed presence of multifocal pneumonia in addition to presence of an underling urinary tract infection. Initial potassium level found to be 3.3 with a magnesium level of 2.0. Initial creatinine level of 1.43 with subsequent trend to 1.32. TSH level is 0.17 with an A1C level of 7.3. At present, denies any active chest pain, palpitations, dizziness, syncope, or any further cardiac related symptoms. As the patient presented with atrial fibrillation with RVR, Electrophysiology services have now been involved by primary team request for further evaluation and management. 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) Diabetes mellitus II, A1C of 7.3 ERNESTO superimposed on CKD Abnormal TSH level (0.17) Pulmonary hypertension Urinary tract infection Morbid obesity Hyperlipidemia Hypertension Hypokalemia Anemia CARDIAC SUGGESTIONS FOR MANAGEMENT: Request for D-Dimer Request for Lipid Profile Request for Thyroid Sonogram Trend HS Troponins to assess peak Full anticoagulation for CVA prophylaxis in setting of AF is advised Therapeutic Lovenox for now, transition to DOAC upon discharge Proceed with close observation for overt signs of fluid overload Proceed with strict intakes, outputs, and daily weights Proceed with close rate and rhythm surveillance Proceed with optimized medical therapy Proceed with risk factor modification Supplemental oxygen as warranted Oral Amiodarone 200mg qhs for now Metoprolol Tartrate 75mg bid Diltiazem 120mg once daily Atorvastatin 20mg daily Benazepril 20mg daily Lasix 20mg IVP daily Management of UTI/Pneumonia as per primary team Management of co-morbidities as per primary team On IV antibiotic therapy as per primary team Consider out-patient ischemic workup Proceed with close hemodynamic surveillance Proceed with optimized blood pressure control Transfuse to sustain HGB level above 7.0 Sustain Magnesium level greater than 2.0 Sustain Potassium level greater than 4.0 Follow up renal function and electrolytes Management in telemetry Will proceed to follow from a cardiac perspective Further recommendations per clinical progression All available diagnostic labs, EKG's, and images were personally reviewed Patient's status, findings, and plan of care was reviewed and discussed with supervising physician Dr. Peters, who is in agreement with current plan of care. Plan of care discussed with and agreed upon by patient / primary RN Prognosis: Guarded Thank you for allowing me to participate in the care of this patient. Further recommendations based on patients clinical course and progression, primary attending, and other consultants. Will continue to follow with primary attending. If you have any questions or concerns, please do not hesitate to contact me. A total of 75 minutes was spent reviewing the patient record, examining the patient, making a diagnostic and therapeutic plan, discussing this plan with medical personnel, following up on diagnostic studies and following the patient for clinical stability excluding any and all procedures. At least 50% of this time was spent in direct, [id number] contact. Plan discussed with: Other (Patient and Primary RN ) JOHNSON MATOS Jul 08, 2024 17:14
[2024-07-08 17:39] LABS: Triglycerides 103 mg/dL (< 150)
[2024-07-08 17:40] LABS: LDL Cholesterol 40 mg/dL (< 100)
[2024-07-08 17:41] LABS: Cholesterol 83 mg/dL (< 200)
[2024-07-08 17:52] LABS: HDL Cholesterol 33 mg/dL (40-59)
--- NOTE | 2024-07-08 18:17 | DVH ---
ULTRASOUND SOFT TISSUE HEAD AND NECK CLINICAL INDICATION: Abnormal TSH TECHNIQUE: Multiple real time sonographic images of the thyroid were obtained. Comparison: None FINDINGS: The right thyroid gland measures 3.5 x 1.4 x 1.7 cm. The left thyroid gland measures approximately 4.0 x 1.5 x 1.7 cm. The isthmus measures 0.3 cm. Hypoechoic nodule in the right upper pole measures 1.0 cm, TR 4. IMPRESSION: 1.0 cm TR 4 nodule in the right upper lobe. [employer] TI-RADS Categories and Recommendations (2017): TR1: 0 points, Benign, No FNA TR2: 2 points, Not suspicious, No FNA TR3: 3 points, Mildly suspicious, FNA if > or = 2.5 cm, Follow if > or = 1.5 cm TR4: 4-6 points, Moderately Suspicious, FNA if > or = 1.5 cm, Follow if > or = 1.0 cm TR5: 7+ points, Highly Suspicious, FNA if > or = 1.0 cm, Follow if > or = 0.5 cm Follow-up ultrasound guidelines: TR5: yearly for 5 years, if no growth or change in TI-RADS level TR4: at 1, 2, 3 and 5 years, if no growth or change in TI-RADS level TR3: at 1, 3 and 5 years, if no growth or change in TI-RADS level If increased but below threshold for FNA, repeat in one year. Source: ACR Thyroid Imaging, Reporting and Data System (TI-RADS): White Paper of the ACR TI-RADS Committee. Sharon et al., J Am Bonnie Radiol 2017;14:587-595.
[2024-07-08] MEDS: AMIODARONE HCL 200 MG TAB PO SCH (22:20)
[2024-07-09] VITALS (18 sets, daily range): BP systolic 78–163; BP diastolic 34–101; PULSE 63–101; RESP 15–20; TEMP 97.6–98; O2SAT 91–99
[2024-07-09 06:26] LABS: Hematocrit 32.3 % (36.0-46.0); Hemoglobin 11.2 g/dL (12.2-16.2); Mean Corpuscular Hemoglobin 31.2 pg (28.0-32.0); Mean Corpuscular Hgb Conc. 34.5 g/dL (32.0-36.0); Mean Corpuscular Volume 90.4 fL (80.0-100.0); Platelet Count (auto) 400 10^3/uL (140-450); Red Blood Cells 3.58 10^6/uL (4.0-5.20); Red Cell Distribution Width 13.2 % (11.8-14.3); White Blood Cell 9.9 10^3/uL (4.4-10.8)
[2024-07-09 06:38] LABS: Basophils % (manual) 0 (0.0-2.0); Blast Cells 0; Eosinophils % (manual) 0 (0-7); Metamyelocytes % 0; Myelocytes % 0; Promyelocytes % 0; Reactive Lymphocytes 0
[2024-07-09 06:48] LABS: Anion Gap 9 (5-15); Calcium 9.4 mg/dL (8.7-10.4); Carbon Dioxide 26 mmol/L (20-31); Chloride 101 mmol/L (98-107); Sodium 136 mmol/L (136-145)
[2024-07-09 06:54] LABS: BUN/Creatinine Ratio 23.2 (10.0-20.0)
[2024-07-09 06:55] LABS: Blood Urea Nitrogen 32 mg/dL (9-23); Glucose 132 mg/dL (74-106)
[2024-07-09 07:05] LABS: Band Neutrophils % (manual) 11; Lymphocytes % (manual) 7 (10.0-50.0); Monocytes % (manual) 7 (0-12); Platelet Estimate Adequate
--- NOTE | 2024-07-09 08:42 | DVHPN2 ---
Reviewed: Care Plan, H&P, Labs, Medications, Previous Orders, Radiology Changes from previous H/P or p: No Changes Objective Vitals Vital Signs Date Time Temp Pulse Resp B/P (MAP) Pulse Ox O2 Delivery O2 Flow Rate FiO2 07/09/24 06:27 69 15 99 07/09/24 06:21 Nasal Cannula 3.0 07/09/24 06:21 32 07/09/24 05:00 97.7 126/87 (100) 97.7 Intake/Output Intake and Output 07/09/24 06:59 Intake Total 1760 ml Output Total 1000 ml Balance 760 ml Intake Oral 1710 ml IV Total 50 ml Output Urine Total 1000 ml Medications Current Medications Medications Dose Ordered Sig/Nicholas Route Start Time Stop Time Status Last Admin Dose Admin Nitroglycerin 0.4 mg Q5MINP PRN SL 07/06/24 19:30 Morphine Sulfate 2 mg Q30M PRN IV 07/06/24 19:30 Ceftriaxone Sodium 50 ml @ 100 mls/hr DAILY IV 07/06/24 19:59 07/08/24 09:40 100 MLS/HR Ipratropium [place] 0.5 mg Q6HP NEB 07/07/24 00:00 07/09/24 06:21 0.5 MG Atorvastatin Calcium 20 mg HS PO 07/07/24 22:00 07/08/24 22:20 20 MG Diltiazem HCl 120 mg DAILY PO 07/07/24 10:00 07/08/24 09:38 120 MG Metoprolol Tartrate 75 mg BID PO 07/07/24 10:00 07/08/24 22:22 75 MG Patient Own Medication 1 tab BID PO 07/07/24 10:00 UNV Patient Own Medication 1 tab BID PO 07/07/24 10:00 UNV Azithromycin 250 ml @ 125 mls/hr DAILY IV 07/07/24 10:00 Hold Enoxaparin Sodium 110 mg Q12HR SC 07/07/24 10:00 07/08/24 22:28 110 MG Benazepril HCl 20 mg DAILY PO 07/08/24 10:00 07/08/24 09:39 20 MG Furosemide 20 mg DAILY IV 07/08/24 10:00 07/08/24 09:39 20 MG Potassium Bicarbonate 25 meq DAILY PO 07/08/24 10:00 07/08/24 09:37 25 MEQ Diagnostic Test (Pha) 1 strip ACHS 07/07/24 17:00 07/09/24 07:55 1 STRIP Insulin Human Regular ACHS SC 07/07/24 17:00 07/09/24 07:57 2 UNITS Dextrose 50 ml UD PRN IV 07/07/24 16:15 Guaifenesin/ Dextromethorphan 10 ml Q4HP PRN PO 07/07/24 16:15 07/09/24 01:43 10 ML Amiodarone HCl 200 mg HS PO 07/08/24 22:00 07/08/24 22:20 200 MG Laboratory Results Laboratory Tests 07/09/24 05:58 Chemistry Test 07/09/24 05:58 Calcium Level 9.4 mg/dL (8.7-10.4) Coagulation Test 07/08/24 17:41 D-Dimer, Quantitative 0.69 mg/L FEU (0.0-0.49) H Lipid panel Test 07/08/24 16:35 Cholesterol Level 83 mg/dL (< 200) HDL Cholesterol 33 mg/dL (40-59) L Triglycerides Level 103 mg/dL (< 150) Urinalysis Test 07/08/24 01:13 Urine Color Light-yellow (Yellow) Urine Clarity Turbid (Clear) H Urine pH 6.0 (5.0-9.0) Urine Specific [place] 1.010 (1.001-1.035) Urine Protein 2+ (Negative) H Urine Ketones Negative (Negative) Urine Blood 1+ /uL (Negative) H Urine Nitrite Negative (Negative) Urine Bilirubin Negative (Negative) Urine Urobilinogen Normal mg/dL (Negative) Urine Leukocyte Esterase 2+ /uL (Negative) Urine RBC 3 /hpf (0 - 4) Urine Microscopic WBC 49 /HPF (0-5) H Urine Squamous Epithelial Cells Few /hpf (<5) Urine Bacteria Few /hpf (None Seen) H Urine Hyaline Casts Few /lpf (0 - 2) Urine Mucus Few (None Seen) Urine Glucose 1+ mg/dL (Normal) H Microbiology Microbiology Date/Time Source Procedure Growth Status 07/07/24 09:59 Blood Blood Culture - Preliminary NO GROWTH AFTER 24 HOURS OF INCUBATION. Resulted Labs and/or images reviewed: Labs reviewed by me, Image(s) reviewed by me Assessment/Plan Assessment/Plan Covering for Dr. Ruano #1 acute on chronic diastolic heart failure: lasix iv cardiology consult by appreciated #2 dm: ssi '#3 htn #4 a fib with rvr: cont meds, cardio eval #5 morbid obesity #6 ckd stage 3 #7 ? pneumonia: iv rocephin # non ST-elevation ID # UTI: Blood cultures negative, Urine cultures are pending Rocephin Patient is telling me that she can not go go home until Thursday as there is nobody at home. Plan discussed with: Patient My Orders Orders - HIRA ROMERO MD Procedure Category Date Status Time Urine Bacterial TONYA 07/08/24 In Process Culture 13:28 Date of Service: Jul 09, 2024 Billing Provider: HIRA ROMERO MD Common Visit Codes: [id number] INP/OBS CARE(HIGH) HIRA ROMERO MD Jul 09, 2024 08:42
[2024-07-09] MEDS: POTASSIUM EFFERVESENT TAB 25 MEQ PO ONE (10:50)
--- NOTE | 2024-07-09 18:39 | DVHPN2 ---
Progress Note - Dictate Date Seen: Jul 09, 2024 Medical Necessity Reason Pt with a Central, PICC or Fol: Yes The following are medically ne: Michele Catheter Reason for michele catheter: Strict I&O Subjective Management in telemetry Will proceed to follow from a cardiac perspective Further recommendations per clinical progression. vital signs Vital Sign Date Time Temp Pulse Resp B/P (MAP) Pulse Ox O2 Delivery O2 Flow Rate FiO2 07/09/24 16:52 97.9 81 17 78/34 (49) 91 97.9 07/09/24 12:00 Nasal Cannula* 3 32 Total Intake and Output 07/08/24 07/08/24 07/09/24 15:00 23:00 07:00 Intake Total 50 ml 1000 ml 710 ml Output Total 1000 ml Balance 50 ml 0 ml 710 ml medications Current Medications Medications Dose Ordered Sig/Nicholas Route Start Time Stop Time Status Last Admin Dose Admin Nitroglycerin 0.4 mg Q5MINP PRN SL 07/06/24 19:30 Morphine Sulfate 2 mg Q30M PRN IV 07/06/24 19:30 Ceftriaxone Sodium 50 ml @ 100 mls/hr DAILY IV 07/06/24 19:59 07/09/24 10:22 100 MLS/HR Ipratropium [place] 0.5 mg Q6HP NEB 07/07/24 00:00 07/09/24 12:00 0.5 MG Atorvastatin Calcium 20 mg HS PO 07/07/24 22:00 07/08/24 22:20 20 MG Diltiazem HCl 120 mg DAILY PO 07/07/24 10:00 07/09/24 10:30 120 MG Metoprolol Tartrate 75 mg BID PO 07/07/24 10:00 07/09/24 10:28 75 MG Patient Own Medication 1 tab BID PO 07/07/24 10:00 UNV Patient Own Medication 1 tab BID PO 07/07/24 10:00 UNV Azithromycin 250 ml @ 125 mls/hr DAILY IV 07/07/24 10:00 Hold Enoxaparin Sodium 110 mg Q12HR SC 07/07/24 10:00 07/09/24 10:29 110 MG Benazepril HCl 20 mg DAILY PO 07/08/24 10:00 07/09/24 10:28 20 MG Furosemide 20 mg DAILY IV 07/08/24 10:00 07/09/24 10:50 20 MG Diagnostic Test (Pha) 1 strip ACHS 07/07/24 17:00 07/09/24 17:02 1 STRIP Insulin Human Regular ACHS SC 07/07/24 17:00 07/09/24 17:59 2 UNITS Dextrose 50 ml UD PRN IV 07/07/24 16:15 Guaifenesin/ Dextromethorphan 10 ml Q4HP PRN PO 07/07/24 16:15 07/09/24 17:56 10 ML Amiodarone HCl 200 mg HS PO 07/08/24 22:00 07/08/24 22:20 200 MG Potassium Bicarbonate 50 meq DAILY PO 07/10/24 10:00 laboratory and microbiology Laboratory Tests 07/09/24 05:58 Test 07/09/24 05:58 Range/Units Serum Glucose 132 H 74-106 mg/dL Assessment/Plan Plan/Recommendation ASSESSMENT: This is a 79-year old female known outside to our practice who initially presented (07/06/2024) with reported shortness of breath for approximately 1.5 weeks prior to arrival. Reports she underwent evaluation at [facility] and found in atrial fibrillation with RVR subsequently referred to ED for further management. Upon ED arrival, initial 12-lead electrocardiogram was performed revealing atrial fibrillation with a ventricular rate of 126 bpm, LBBB, with no acute ischemic changes subsequently initiated on Amiodarone infusion. Initial HS troponin level found elevated at 216. BNP level found elevated at 259 which initial chest x-ray revealed no evidence for vascular congestion. Echocardiogram (07/07/2024) was performed revealing a preserved LVEF of 55% with bi-atrial enlargement, RV enlargement, with an RVSP of 45mmHg. Initial WBC count was found elevated which CT imaging of the chest revealed presence of multifocal pneumonia in addition to presence of an underling urinary tract infection. Initial potassium level found to be 3.3 with a magnesium level of 2.0. Initial creatinine level of 1.43 with subsequent trend to 1.32. TSH level is 0.17 with an A1C level of 7.3. At present, denies any active chest pain, palpitations, dizziness, syncope, or any further cardiac related symptoms. As the patient presented with atrial fibrillation with RVR, Electrophysiology services have now been involved by primary team request for further evaluation and management. 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) Diabetes mellitus II, A1C of 7.3 ERNESTO superimposed on CKD Abnormal TSH level (0.17) Pulmonary hypertension Urinary tract infection Morbid obesity Hyperlipidemia Hypertension Hypokalemia Anemia CARDIAC SUGGESTIONS FOR MANAGEMENT: Request for D-Dimer Request for Lipid Profile Request for Thyroid Sonogram Trend HS Troponins to assess peak Full anticoagulation for CVA prophylaxis in setting of AF is advised Therapeutic Lovenox for now, transition to DOAC upon discharge Proceed with close observation for overt signs of fluid overload Proceed with strict intakes, outputs, and daily weights Proceed with close rate and rhythm surveillance Proceed with optimized medical therapy Proceed with risk factor modification Supplemental oxygen as warranted Oral Amiodarone 200mg qhs for now Metoprolol Tartrate 75mg bid Diltiazem 120mg once daily Atorvastatin 20mg daily Benazepril 20mg daily Lasix 20mg IVP daily Management of UTI/Pneumonia as per primary team Management of co-morbidities as per primary team On IV antibiotic therapy as per primary team Consider out-patient ischemic workup Proceed with close hemodynamic surveillance Proceed with optimized blood pressure control Transfuse to sustain HGB level above 7.0 Sustain Magnesium level greater than 2.0 Sustain Potassium level greater than 4.0 Follow up renal function and electrolytes Management in telemetry Will proceed to follow from a cardiac perspective Further recommendations per clinical progression All available diagnostic labs, EKG's, and images were personally reviewed Plan of care discussed with and agreed upon by patient / primary RN Prognosis: Guarded Thank you for allowing me to participate in the care of this patient. Further recommendations based on patients clinical course and progression, primary attending, and other consultants. Will continue to follow with primary attending. If you have any questions or concerns, please do not hesitate to contact me. A total of 75 minutes was spent reviewing the patient record, examining the patient, making a diagnostic and therapeutic plan, discussing this plan with medical personnel, following up on diagnostic studies and following the patient for clinical stability excluding any and all procedures. At least 50% of this time was spent in direct, [id number] contact. Plan discussed with: Patient CLAUDIA TAVERA MD Jul 09, 2024 18:39
[2024-07-10] VITALS (17 sets, daily range): BP systolic 112–149; BP diastolic 58–87; PULSE 64–110; RESP 16–22; TEMP 97.4–98.3; O2SAT 93–99
[2024-07-10 07:08] LABS: Basophils # (auto) 0 10 ^3/uL (0-0.2); Basophils % (auto) 0.1 % (0.0-2.0); Eosinophils # (auto) 0.1 10 ^3/uL (0-0.8); Eosinophils % (auto) 0.6 % (0.0-7.0); Hematocrit 34.7 % (36.0-46.0); Hemoglobin 11.5 g/dL (12.2-16.2); Lymphocytes # (auto) 0.8 10 ^3/uL (0.4-5.4); Lymphocytes % (auto) 8.8 % (10.0-50.0); Mean Corpuscular Hemoglobin 30.3 pg (28.0-32.0); Mean Corpuscular Hgb Conc. 33.1 g/dL (32.0-36.0); Mean Corpuscular Volume 91.4 fL (80.0-100.0); Monocytes # (auto) 0.6 10 ^3/uL (0-1.3); Monocytes % (auto) 6.8 % (0.0-12.0); Neutrophils % (auto) 83.7 % (37.0-80.0); Platelet Count (auto) 362 10^3/uL (140-450); Red Cell Distribution Width 13.2 % (11.8-14.3); White Blood Cell 9.5 10^3/uL (4.4-10.8)
[2024-07-10 07:12] LABS: Chloride 101 mmol/L (98-107); Potassium 3.5 mmol/L (3.5-5.1); Sodium 137 mmol/L (136-145)
[2024-07-10 07:13] LABS: Anion Gap 9 (5-15); Calcium 9.2 mg/dL (8.7-10.4); Carbon Dioxide 27 mmol/L (20-31)
[2024-07-10 07:18] LABS: BUN/Creatinine Ratio 20.1 (10.0-20.0)
[2024-07-10 07:25] LABS: Blood Urea Nitrogen 29 mg/dL (9-23); Glucose 120 mg/dL (74-106)
--- NOTE | 2024-07-10 09:20 | DVHPN2 ---
Reviewed: Care Plan, H&P, Labs, Medications, Previous Orders, Radiology Changes from previous H/P or p: No Changes Objective Vitals Vital Signs Date Time Temp Pulse Resp B/P (MAP) Pulse Ox O2 Delivery O2 Flow Rate FiO2 07/10/24 08:00 94 16 96 Nasal Cannula* 3 32 07/10/24 05:00 97.6 135/76 (95) 97.6 Intake/Output Intake and Output 07/10/24 07:00 Intake Total 550 ml Output Total 2000 ml Balance -1450 ml Intake Oral 500 ml IV Total 50 ml Output Urine Total 2000 ml # Bowel Movements 2 Medications Current Medications Medications Dose Ordered Sig/Nicholas Route Start Time Stop Time Status Last Admin Dose Admin Nitroglycerin 0.4 mg Q5MINP PRN SL 07/06/24 19:30 Morphine Sulfate 2 mg Q30M PRN IV 07/06/24 19:30 Ceftriaxone Sodium 50 ml @ 100 mls/hr DAILY IV 07/06/24 19:59 07/09/24 10:22 100 MLS/HR Ipratropium [place] 0.5 mg Q6HP NEB 07/07/24 00:00 07/10/24 06:05 0.5 MG Atorvastatin Calcium 20 mg HS PO 07/07/24 22:00 07/09/24 21:38 20 MG Diltiazem HCl 120 mg DAILY PO 07/07/24 10:00 07/09/24 10:30 120 MG Metoprolol Tartrate 75 mg BID PO 07/07/24 10:00 07/09/24 21:39 75 MG Patient Own Medication 1 tab BID PO 07/07/24 10:00 UNV Patient Own Medication 1 tab BID PO 07/07/24 10:00 UNV Azithromycin 250 ml @ 125 mls/hr DAILY IV 07/07/24 10:00 Hold Enoxaparin Sodium 110 mg Q12HR SC 07/07/24 10:00 07/09/24 21:39 110 MG Benazepril HCl 20 mg DAILY PO 07/08/24 10:00 07/09/24 10:28 20 MG Furosemide 20 mg DAILY IV 07/08/24 10:00 07/09/24 10:50 20 MG Diagnostic Test (Pha) 1 strip ACHS 07/07/24 17:00 07/10/24 06:02 1 STRIP Insulin Human Regular ACHS SC 07/07/24 17:00 07/09/24 21:45 2 UNITS Dextrose 50 ml UD PRN IV 07/07/24 16:15 Guaifenesin/ Dextromethorphan 10 ml Q4HP PRN PO 07/07/24 16:15 07/09/24 21:39 10 ML Amiodarone HCl 200 mg HS PO 07/08/24 22:00 07/09/24 21:38 200 MG Potassium Bicarbonate 50 meq DAILY PO 07/10/24 10:00 Laboratory Results Laboratory Tests 07/10/24 06:04 Chemistry Test 07/10/24 06:04 Calcium Level 9.2 mg/dL (8.7-10.4) Urinalysis Test 07/08/24 01:13 Urine Color Light-yellow (Yellow) Urine Clarity Turbid (Clear) H Urine pH 6.0 (5.0-9.0) Urine Specific [place] 1.010 (1.001-1.035) Urine Protein 2+ (Negative) H Urine Ketones Negative (Negative) Urine Blood 1+ /uL (Negative) H Urine Nitrite Negative (Negative) Urine Bilirubin Negative (Negative) Urine Urobilinogen Normal mg/dL (Negative) Urine Leukocyte Esterase 2+ /uL (Negative) Urine RBC 3 /hpf (0 - 4) Urine Microscopic WBC 49 /HPF (0-5) H Urine Squamous Epithelial Cells Few /hpf (<5) Urine Bacteria Few /hpf (None Seen) H Urine Hyaline Casts Few /lpf (0 - 2) Urine Mucus Few (None Seen) Urine Glucose 1+ mg/dL (Normal) H Microbiology Microbiology Date/Time Source Procedure Growth Status 07/08/24 13:55 Voided Urine Urine Culture - Preliminary Resulted 07/07/24 09:59 Blood Blood Culture - Preliminary NO GROWTH AFTER 48 HOURS OF INCUBATION. Resulted Labs and/or images reviewed: Labs reviewed by me, Image(s) reviewed by me Assessment/Plan Assessment/Plan Covering for Dr. Ruano #1 acute on chronic diastolic heart failure: lasix iv cardiology consult by appreciated #2 dm: ssi '#3 htn #4 a fib with rvr: cont meds, cardio eval #5 morbid obesity #6 ckd stage 3 #7 ? pneumonia: iv rocephin # non ST-elevation NE # UTI: Blood cultures negative, Urine cultures are pending Rocephin Patient is telling me that she can not go go home until Thursday as there is nobody at home. Continue current management Plan discussed with: Patient My Orders Orders - HIRA ROMERO MD Procedure Category Date Status Time Potassium Effervesent PHA 07/10/24 In Process Tab (Klor-Con/Ef) 10:00 Date of Service: Jul 10, 2024 Billing Provider: HIRA ROMERO MD Common Visit Codes: [id number] INP/OBS CARE(HIGH) HIRA ROMERO MD Jul 10, 2024 09:20
[2024-07-10] MEDS: POTASSIUM EFFERVESENT TAB 25 MEQ PO SCH (09:59)
--- NOTE | 2024-07-10 13:16 | DVHPN2 ---
Progress Note Date Seen: Jul 10, 2024 Medical Necessity Reason Pt with a Central, PICC or Fol: Yes The following are medically ne: Michele Catheter Reason for michele catheter: Strict I&O Objective vital signs Vital Sign Date Time Temp Pulse Resp B/P (MAP) Pulse Ox O2 Delivery O2 Flow Rate FiO2 07/10/24 12:37 90 20 96 07/10/24 12:37 Nasal Cannula* 3 32 07/10/24 11:00 112/61 07/10/24 09:00 97.6 97.6 Total Intake and Output 07/09/24 07/09/24 07/10/24 15:00 23:00 07:00 Intake Total 50 ml 500 ml Output Total 1000 ml 1000 ml Balance 50 ml -1000 ml -500 ml medications Current Medications Medications Dose Ordered Sig/Nicholas Route Start Time Stop Time Status Last Admin Dose Admin Nitroglycerin 0.4 mg Q5MINP PRN SL 07/06/24 19:30 Morphine Sulfate 2 mg Q30M PRN IV 07/06/24 19:30 Ceftriaxone Sodium 50 ml @ 100 mls/hr DAILY IV 07/06/24 19:59 07/10/24 09:59 100 MLS/HR Ipratropium [place] 0.5 mg Q6HP NEB 07/07/24 00:00 07/10/24 12:37 0.5 MG Atorvastatin Calcium 20 mg HS PO 07/07/24 22:00 07/09/24 21:38 20 MG Diltiazem HCl 120 mg DAILY PO 07/07/24 10:00 07/10/24 10:00 120 MG Metoprolol Tartrate 75 mg BID PO 07/07/24 10:00 07/10/24 10:00 75 MG Patient Own Medication 1 tab BID PO 07/07/24 10:00 UNV Patient Own Medication 1 tab BID PO 07/07/24 10:00 UNV Azithromycin 250 ml @ 125 mls/hr DAILY IV 07/07/24 10:00 Hold Enoxaparin Sodium 110 mg Q12HR SC 07/07/24 10:00 07/10/24 10:01 110 MG Benazepril HCl 20 mg DAILY PO 07/08/24 10:00 07/10/24 10:00 20 MG Furosemide 20 mg DAILY IV 07/08/24 10:00 07/10/24 10:01 20 MG Diagnostic Test (Pha) 1 strip ACHS 07/07/24 17:00 07/10/24 11:24 1 STRIP Insulin Human Regular ACHS SC 07/07/24 17:00 07/10/24 11:29 2 UNITS Dextrose 50 ml UD PRN IV 07/07/24 16:15 Guaifenesin/ Dextromethorphan 10 ml Q4HP PRN PO 07/07/24 16:15 07/10/24 11:32 10 ML Amiodarone HCl 200 mg HS PO 07/08/24 22:00 07/09/24 21:38 200 MG Potassium Bicarbonate 50 meq DAILY PO 07/10/24 10:00 07/10/24 09:59 50 MEQ laboratory and microbiology Laboratory Tests 07/10/24 06:04 Test 07/10/24 06:04 Range/Units Serum Glucose 120 H 74-106 mg/dL Microbiology Date/Time Source Procedure Growth Status 07/08/24 13:55 Voided Urine Urine Culture - Preliminary Resulted 07/07/24 09:59 Blood Blood Culture - Preliminary NO GROWTH AFTER 72 HOURS OF INCUBATION. Resulted Problem List/Assessment/Plan Problem List/Assessment/Plan This is a 79-year old female known outside to our practice who initially presented (07/06/2024) with reported shortness of breath for approximately 1.5 weeks prior to arrival. Reports she underwent evaluation at [facility] and found in atrial fibrillation with RVR subsequently referred to ED for further management. Upon ED arrival, initial 12-lead electrocardiogram was performed revealing atrial fibrillation with a ventricular rate of 126 bpm, LBBB, with no acute ischemic changes subsequently initiated on Amiodarone infusion. Initial HS troponin level found elevated at 216. BNP level found elevated at 259 which initial chest x-ray revealed no evidence for vascular congestion. Echocardiogram (07/07/2024) was performed revealing a preserved LVEF of 55% with bi-atrial enlargement, RV enlargement, with an RVSP of 45mmHg. Initial WBC count was found elevated which CT imaging of the chest revealed presence of multifocal pneumonia in addition to presence of an underling urinary tract infection. Initial potassium level found to be 3.3 with a magnesium level of 2.0. Initial creatinine level of 1.43 with subsequent trend to 1.32. TSH level is 0.17 with an A1C level of 7.3. At present, denies any active chest pain, palpitations, dizziness, syncope, or any further cardiac related symptoms. As the patient presented with atrial fibrillation with RVR, Electrophysiology services have now been involved by primary team request for further evaluation and management. 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) Diabetes mellitus II, A1C of 7.3 ERNESTO superimposed on CKD Abnormal TSH level (0.17) Pulmonary hypertension Urinary tract infection Morbid obesity Hyperlipidemia Hypertension Hypokalemia Anemia CARDIAC SUGGESTIONS FOR MANAGEMENT: Request for D-Dimer Request for Lipid Profile Request for Thyroid Sonogram Trend HS Troponins to assess peak Full anticoagulation for CVA prophylaxis in setting of AF is advised Therapeutic Lovenox for now, transition to DOAC upon discharge Proceed with close observation for overt signs of fluid overload Proceed with strict intakes, outputs, and daily weights Proceed with close rate and rhythm surveillance Proceed with optimized medical therapy Proceed with risk factor modification Supplemental oxygen as warranted Oral Amiodarone 200mg qhs for now Metoprolol Tartrate 75mg bid Diltiazem 120mg once daily Atorvastatin 20mg daily Benazepril 20mg daily Lasix 20mg IVP daily Management of UTI/Pneumonia as per primary team Management of co-morbidities as per primary team On IV antibiotic therapy as per primary team Consider out-patient ischemic workup Proceed with close hemodynamic surveillance Proceed with optimized blood pressure control Transfuse to sustain HGB level above 7.0 Sustain Magnesium level greater than 2.0 Sustain Potassium level greater than 4.0 Follow up renal function and electrolytes Management in telemetry Will proceed to follow from a cardiac perspective Further recommendations per clinical progression All available diagnostic labs, EKG's, and images were personally reviewed Plan of care discussed with and agreed upon by patient / primary RN Prognosis: Guarded Thank you for allowing me to participate in the care of this patient. Further recommendations based on patients clinical course and progression, primary attending, and other consultants. Will continue to follow with primary attending. If you have any questions or concerns, please do not hesitate to contact me. A total of 75 minutes was spent reviewing the patient record, examining the patient, making a diagnostic and therapeutic plan, discussing this plan with medical personnel, following up on diagnostic studies and following the patient for clinical stability excluding any and all procedures. At least 50% of this time was spent in direct, [id number] contact. Plan discussed with: Patient CLAUDIA TAVERA MD Jul 10, 2024 13:16
[2024-07-11] VITALS (15 sets, daily range): BP systolic 111–133; BP diastolic 60–80; PULSE 82–117; RESP 16–20; TEMP 97.4–98.6; O2SAT 92–99
[2024-07-11 07:12] LABS: Basophils # (auto) 0 10 ^3/uL (0-0.2); Basophils % (auto) 0.2 % (0.0-2.0); Eosinophils # (auto) 0.1 10 ^3/uL (0-0.8); Eosinophils % (auto) 0.6 % (0.0-7.0); Hematocrit 35.7 % (36.0-46.0); Lymphocytes # (auto) 0.8 10 ^3/uL (0.4-5.4); Mean Corpuscular Hemoglobin 30.9 pg (28.0-32.0); Mean Corpuscular Hgb Conc. 33.8 g/dL (32.0-36.0); Mean Corpuscular Volume 91.6 fL (80.0-100.0); Monocytes # (auto) 0.6 10 ^3/uL (0-1.3); Monocytes % (auto) 4.9 % (0.0-12.0); Neutrophils # (auto) 11.2 10 ^3/uL (1.6-8.6); Neutrophils % (auto) 88.3 % (37.0-80.0); Platelet Count (auto) 330 10^3/uL (140-450); Red Blood Cells 3.89 10^6/uL (4.0-5.20); Red Cell Distribution Width 13.2 % (11.8-14.3); White Blood Cell 12.7 10^3/uL (4.4-10.8)
[2024-07-11 07:44] LABS: Alanine Aminotransferase 23 U/L (7-40); Anion Gap 7 (5-15); Aspartate Aminotransferase 27 U/L (13-40); BUN/Creatinine Ratio 17.9 (10.0-20.0); Bilirubin, Total 0.3 mg/dL (0.2-1.0); Calcium 9.3 mg/dL (8.7-10.4); Carbon Dioxide 30 mmol/L (20-31); Chloride 100 mmol/L (98-107); Glucose 106 mg/dL (74-106); Sodium 137 mmol/L (136-145); Total Protein 5.9 g/dL (5.7-8.2)
[2024-07-11 07:45] LABS: Albumin 3.1 g/dL (3.2-4.8); Alkaline Phosphatase 125 U/L (46-116); Blood Urea Nitrogen 26 mg/dL (9-23)
--- NOTE | 2024-07-11 10:52 | ECG ---
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
--- NOTE | 2024-07-11 10:52 | ECG ---
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
--- NOTE | 2024-07-11 10:55 | DVHPN2 ---
Progress Note Date Seen: Jul 11, 2024 Medical Necessity Reason Pt with a Central, PICC or Fol: Yes The following are medically ne: Michele Catheter Reason for michele catheter: Strict I&O Subjective Patient reports: No new complaints Review of Systems: HEENT:Normal, CVS:Normal, RESPIRATORY:Normal, GI:Normal, :Normal, MSK:Normal, NEURO:Normal Objective vital signs Vital Sign Date Time Temp Pulse Resp B/P (MAP) Pulse Ox O2 Delivery O2 Flow Rate FiO2 07/11/24 09:00 98.0 90 16 133/80 (97) 97 98.0 07/11/24 06:19 Nasal Cannula* 3 32 Total Intake and Output 07/10/24 07/10/24 07/11/24 15:00 23:00 07:00 Intake Total 410 ml 960 ml 900 ml Output Total 1002 ml 550 ml Balance 410 ml -42 ml 350 ml medications Current Medications Medications Dose Ordered Sig/Nicholas Route Start Time Stop Time Status Last Admin Dose Admin Nitroglycerin 0.4 mg Q5MINP PRN SL 07/06/24 19:30 Morphine Sulfate 2 mg Q30M PRN IV 07/06/24 19:30 Ceftriaxone Sodium 50 ml @ 100 mls/hr DAILY IV 07/06/24 19:59 07/10/24 09:59 100 MLS/HR Ipratropium [place] 0.5 mg Q6HP NEB 07/07/24 00:00 07/11/24 06:19 0.5 MG Atorvastatin Calcium 20 mg HS PO 07/07/24 22:00 07/10/24 21:30 20 MG Diltiazem HCl 120 mg DAILY PO 07/07/24 10:00 07/10/24 10:00 120 MG Metoprolol Tartrate 75 mg BID PO 07/07/24 10:00 07/10/24 21:31 75 MG Patient Own Medication 1 tab BID PO 07/07/24 10:00 UNV Patient Own Medication 1 tab BID PO 07/07/24 10:00 UNV Azithromycin 250 ml @ 125 mls/hr DAILY IV 07/07/24 10:00 Hold Enoxaparin Sodium 110 mg Q12HR SC 07/07/24 10:00 07/10/24 21:32 110 MG Benazepril HCl 20 mg DAILY PO 07/08/24 10:00 07/10/24 10:00 20 MG Furosemide 20 mg DAILY IV 07/08/24 10:00 07/10/24 10:01 20 MG Diagnostic Test (Pha) 1 strip ACHS 07/07/24 17:00 07/11/24 06:22 1 STRIP Insulin Human Regular ACHS SC 07/07/24 17:00 07/10/24 21:42 2 UNITS Dextrose 50 ml UD PRN IV 07/07/24 16:15 Guaifenesin/ Dextromethorphan 10 ml Q4HP PRN PO 07/07/24 16:15 07/10/24 22:33 10 ML Amiodarone HCl 200 mg HS PO 07/08/24 22:00 07/10/24 21:30 200 MG Potassium Bicarbonate 50 meq DAILY PO 07/10/24 10:00 07/10/24 09:59 50 MEQ Examination: GENERAL:Normal, HEENT:Normal, NECK:Normal, LUNGS:Normal, LUNGS:Abnormal (on oxygen), CVS:Normal, ABDOMEN:Normal, MSK:Normal, SKIN:Normal, NEURO:Normal, :Normal laboratory and microbiology Laboratory Tests 07/11/24 06:15 Test 07/11/24 06:15 Range/Units Serum Glucose 106 74-106 mg/dL Microbiology Date/Time Source Procedure Growth Status 07/08/24 13:55 Voided Urine Urine Culture - Preliminary Resulted 07/07/24 09:59 Blood Blood Culture - Preliminary NO GROWTH AFTER 72 HOURS OF INCUBATION. Resulted Problem List/Assessment/Plan Problem List/Assessment/Plan #1 acute on chronic diastolic heart failure: lasix iv #2 dm: ssi '#3 htn #4 a fib with rvr: cont meds, cardio eval #5 morbid obesity #6 ckd stage 3 #7 ? pneumonia: iv rocephin advance care planning- full code-time spent 19 mins Plan discussed with: Patient My Orders My Orders Orders - CHARLIE TOBIN MD Procedure Category Date Status Time Apixaban (Eliquis) PHA 07/11/24 Verified 22:00 Basic Metabolic Panel LAB 07/12/24 Verified 06:00 Complete Blood Count LAB 07/12/24 Verified 06:00 Chest Portable XY 07/12/24 Verified 06:00 Pt Request For Service PT 07/11/24 Verified 10:50 * Manufacturing Engineer Paint CONS 07/11/24 Verified Consult Date of Service: Jul 11, 2024 Billing Provider: CHARLIE TOBIN MD Common Visit Codes: [id number] INP/OBS CARE(HIGH) CHARLIE TOBIN MD Jul 11, 2024 10:55
[2024-07-11] MEDS: APIXABAN 5 MG TAB PO ONE (12:22)
--- NOTE | 2024-07-11 13:38 | DVHPN2 ---
Progress Note - Dictate Date Seen: Jul 11, 2024 Medical Necessity Reason Pt with a Central, PICC or Fol: Yes The following are medically ne: Michele Catheter Reason for michele catheter: Strict I&O Subjective Seen and examined at the bedside within telemetry Remains cardiac stable. Denies chest pain or shortness of breath. Chart reviewed. vital signs Vital Sign Date Time Temp Pulse Resp B/P (MAP) Pulse Ox O2 Delivery O2 Flow Rate FiO2 07/11/24 13:15 99 111/66 07/11/24 11:38 20 99 07/11/24 10:00 Room Air* 0 21 07/11/24 09:00 98.0 98.0 Total Intake and Output 07/10/24 07/10/24 07/11/24 15:00 23:00 07:00 Intake Total 410 ml 960 ml 900 ml Output Total 1002 ml 550 ml Balance 410 ml -42 ml 350 ml medications Current Medications Medications Dose Ordered Sig/Nicholas Route Start Time Stop Time Status Last Admin Dose Admin Nitroglycerin 0.4 mg Q5MINP PRN SL 07/06/24 19:30 Morphine Sulfate 2 mg Q30M PRN IV 07/06/24 19:30 Ceftriaxone Sodium 50 ml @ 100 mls/hr DAILY IV 07/06/24 19:59 07/11/24 10:46 100 MLS/HR Ipratropium [place] 0.5 mg Q6HP NEB 07/07/24 00:00 07/11/24 11:38 0.5 MG Atorvastatin Calcium 20 mg HS PO 07/07/24 22:00 07/10/24 21:30 20 MG Diltiazem HCl 120 mg DAILY PO 07/07/24 10:00 07/11/24 10:37 120 MG Metoprolol Tartrate 75 mg BID PO 07/07/24 10:00 07/11/24 10:38 75 MG Patient Own Medication 1 tab BID PO 07/07/24 10:00 UNV Patient Own Medication 1 tab BID PO 07/07/24 10:00 UNV Azithromycin 250 ml @ 125 mls/hr DAILY IV 07/07/24 10:00 Hold Benazepril HCl 20 mg DAILY PO 07/08/24 10:00 07/11/24 10:38 20 MG Furosemide 20 mg DAILY IV 07/08/24 10:00 07/11/24 10:39 20 MG Diagnostic Test (Pha) 1 strip ACHS 07/07/24 17:00 07/11/24 12:17 1 STRIP Insulin Human Regular ACHS SC 07/07/24 17:00 07/11/24 12:18 2 UNITS Dextrose 50 ml UD PRN IV 07/07/24 16:15 Guaifenesin/ Dextromethorphan 10 ml Q4HP PRN PO 07/07/24 16:15 07/10/24 22:33 10 ML Amiodarone HCl 200 mg HS PO 07/08/24 22:00 07/10/24 21:30 200 MG Potassium Bicarbonate 50 meq DAILY PO 07/10/24 10:00 07/11/24 10:36 50 MEQ Apixaban 5 mg BID PO 07/11/24 22:00 laboratory and microbiology Laboratory Tests 07/11/24 06:15 Test 07/11/24 06:15 Range/Units Serum Glucose 106 74-106 mg/dL Assessment/Plan Plan/Recommendation ASSESSMENT: This is a 79-year old female known outside to our practice who initially presented (07/06/2024) with reported shortness of breath for approximately 1.5 weeks prior to arrival. Reports she underwent evaluation at [facility] and found in atrial fibrillation with RVR subsequently referred to ED for further management. Upon ED arrival, initial 12-lead electrocardiogram was performed revealing atrial fibrillation with a ventricular rate of 126 bpm, LBBB, with no acute ischemic changes subsequently initiated on Amiodarone infusion. Initial HS troponin level found elevated at 216. BNP level found elevated at 259 which initial chest x-ray revealed no evidence for vascular congestion. Echocardiogram (07/07/2024) was performed revealing a preserved LVEF of 55% with bi-atrial enlargement, RV enlargement, with an RVSP of 45mmHg. Initial WBC count was found elevated which CT imaging of the chest revealed presence of multifocal pneumonia in addition to presence of an underling urinary tract infection. Initial potassium level found to be 3.3 with a magnesium level of 2.0. Initial creatinine level of 1.43 with subsequent trend to 1.32. TSH level is 0.17 with an A1C level of 7.3. At present, denies any active chest pain, palpitations, dizziness, syncope, or any further cardiac related symptoms. As the patient presented with atrial fibrillation with RVR, Electrophysiology services have now been involved by primary team request for further evaluation and management. 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) Diabetes mellitus II, A1C of 7.3 ERNESTO superimposed on CKD Abnormal TSH level (0.17) Pulmonary hypertension Urinary tract infection Thyroid nodule Morbid obesity Hyperlipidemia Hypertension Hypokalemia Anemia CARDIAC SUGGESTIONS FOR MANAGEMENT: Full anticoagulation for CVA prophylaxis in setting of AF is advised Therapeutic Lovenox for now, transition to DOAC upon discharge Proceed with close observation for overt signs of fluid overload Proceed with strict intakes, outputs, and daily weights Proceed with close rate and rhythm surveillance Proceed with optimized medical therapy Proceed with risk factor modification Supplemental oxygen as warranted Oral Amiodarone 200mg qhs for now Metoprolol Tartrate 75mg bid Diltiazem 120mg once daily Atorvastatin 20mg daily Benazepril 20mg daily Lasix 20mg IVP daily Management of UTI/Pneumonia as per primary team Management of co-morbidities as per primary team Outpatient surveillance of thyroid nodule advised On IV antibiotic therapy as per primary team Consider out-patient ischemic workup Proceed with close hemodynamic surveillance Proceed with optimized blood pressure control Transfuse to sustain HGB level above 7.0 Sustain Magnesium level greater than 2.0 Sustain Potassium level greater than 4.0 Follow up renal function and electrolytes Management in telemetry Will proceed to follow from a cardiac perspective Further recommendations per clinical progression All available diagnostic labs, EKG's, and images were personally reviewed Patient's status, findings, and plan of care was reviewed and discussed with supervising physician Dr. Peters, who is in agreement with current plan of care. Plan of care discussed with and agreed upon by patient / primary RN Prognosis: Guarded Thank you for allowing me to participate in the care of this patient. Further recommendations based on patients clinical course and progression, primary attending, and other consultants. Will continue to follow with primary attending. If you have any questions or concerns, please do not hesitate to contact me. A total of 75 minutes was spent reviewing the patient record, examining the patient, making a diagnostic and therapeutic plan, discussing this plan with medical personnel, following up on diagnostic studies and following the patient for clinical stability excluding any and all procedures. At least 50% of this time was spent in direct, [id number] contact. Plan discussed with: Other (Patient and Primary RN ) Plan discussed with: Patient (Patient and Primary RN ) JOHNSON MATOS Jul 11, 2024 13:38
[2024-07-11] MEDS: APIXABAN 5 MG TAB PO SCH (21:41)
[2024-07-12] VITALS (19 sets, daily range): BP systolic 102–148; BP diastolic 48–80; PULSE 63–117; RESP 16–20; TEMP 97.7–98.5; O2SAT 94–99
[2024-07-12 01:19] LABS: Rapid Influenza A Negative (Negative); Rapid Influenza B Negative (Negative)
[2024-07-12 01:41] LABS: COVID19 ANTIGEN SOFIA FIA NEGATIVE (NEGATIVE)
--- NOTE | 2024-07-12 06:33 | DVHPN2 ---
Progress Note - Dictate Date Seen: Jul 12, 2024 Medical Necessity Reason Pt with a Central, PICC or Fol: Yes The following are medically ne: Michele Catheter Reason for michele catheter: Strict I&O Subjective Seen and examined at the bedside within telemetry. Telemetry reveals atrial fibrillation with ventricular rates within the 120s range. Denies chest pain or shortness of breath. Currently on supplemental oxygen. Hemodynamically stable at present. Diltiazem 10mg IVP ordered to assist in rate control. Chart reviewed. vital signs Vital Sign Date Time Temp Pulse Resp B/P (MAP) Pulse Ox O2 Delivery O2 Flow Rate FiO2 07/12/24 05:00 98.4 96 16 123/67 (85) 94 98.4 07/11/24 20:00 Nasal Cannula* 3 32 Total Intake and Output 07/11/24 07/11/24 07/12/24 15:00 23:00 07:00 Intake Total 594 ml 2138 ml 950 ml Output Total 2302 ml 700 ml Balance 594 ml -164 ml 250 ml medications Current Medications Medications Dose Ordered Sig/Nicholas Route Start Time Stop Time Status Last Admin Dose Admin Nitroglycerin 0.4 mg Q5MINP PRN SL 07/06/24 19:30 Morphine Sulfate 2 mg Q30M PRN IV 07/06/24 19:30 Ceftriaxone Sodium 50 ml @ 100 mls/hr DAILY IV 07/06/24 19:59 07/11/24 10:46 100 MLS/HR Ipratropium [place] 0.5 mg Q6HP NEB 07/07/24 00:00 07/12/24 00:54 0.5 MG Atorvastatin Calcium 20 mg HS PO 07/07/24 22:00 07/11/24 21:41 20 MG Diltiazem HCl 120 mg DAILY PO 07/07/24 10:00 07/11/24 10:37 120 MG Metoprolol Tartrate 75 mg BID PO 07/07/24 10:00 07/11/24 21:43 75 MG Patient Own Medication 1 tab BID PO 07/07/24 10:00 UNV Patient Own Medication 1 tab BID PO 07/07/24 10:00 UNV Azithromycin 250 ml @ 125 mls/hr DAILY IV 07/07/24 10:00 Hold Benazepril HCl 20 mg DAILY PO 07/08/24 10:00 07/11/24 10:38 20 MG Furosemide 20 mg DAILY IV 07/08/24 10:00 07/11/24 10:39 20 MG Diagnostic Test (Pha) 1 strip ACHS 07/07/24 17:00 07/12/24 06:03 1 STRIP Insulin Human Regular ACHS SC 07/07/24 17:00 07/11/24 21:58 2 UNITS Dextrose 50 ml UD PRN IV 07/07/24 16:15 Guaifenesin/ Dextromethorphan 10 ml Q4HP PRN PO 07/07/24 16:15 07/11/24 21:41 10 ML Amiodarone HCl 200 mg HS PO 07/08/24 22:00 07/11/24 21:42 200 MG Potassium Bicarbonate 50 meq DAILY PO 07/10/24 10:00 07/11/24 10:36 50 MEQ Apixaban 5 mg BID PO 07/11/24 22:00 07/11/24 21:41 5 MG laboratory and microbiology Laboratory Tests 07/11/24 06:15 Test 07/11/24 06:15 Range/Units Serum Glucose 106 74-106 mg/dL Assessment/Plan Plan/Recommendation ASSESSMENT: This is a 79-year old female known outside to our practice who initially presented (07/06/2024) with reported shortness of breath for approximately 1.5 weeks prior to arrival. Reports she underwent evaluation at [facility] and found in atrial fibrillation with RVR subsequently referred to ED for further management. Upon ED arrival, initial 12-lead electrocardiogram was performed revealing atrial fibrillation with a ventricular rate of 126 bpm, LBBB, with no acute ischemic changes subsequently initiated on Amiodarone infusion. Initial HS troponin level found elevated at 216. BNP level found elevated at 259 which initial chest x-ray revealed no evidence for vascular congestion. Echocardiogram (07/07/2024) was performed revealing a preserved LVEF of 55% with bi-atrial enlargement, RV enlargement, with an RVSP of 45mmHg. Initial WBC count was found elevated which CT imaging of the chest revealed presence of multifocal pneumonia in addition to presence of an underling urinary tract infection. Initial potassium level found to be 3.3 with a magnesium level of 2.0. Initial creatinine level of 1.43 with subsequent trend to 1.32. TSH level is 0.17 with an A1C level of 7.3. At present, denies any active chest pain, palpitations, dizziness, syncope, or any further cardiac related symptoms. As the patient presented with atrial fibrillation with RVR, Electrophysiology services have now been involved by primary team request for further evaluation and management. 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) Diabetes mellitus II, A1C of 7.3 ERNESTO superimposed on CKD Abnormal TSH level (0.17) Pulmonary hypertension Urinary tract infection Thyroid nodule Morbid obesity Hyperlipidemia Hypertension Hypokalemia Anemia CARDIAC SUGGESTIONS FOR MANAGEMENT: Full anticoagulation for CVA prophylaxis in setting of AF is advised Therapeutic Lovenox for now, transition to DOAC upon discharge Proceed with close observation for overt signs of fluid overload Proceed with strict intakes, outputs, and daily weights Proceed with close rate and rhythm surveillance Proceed with optimized medical therapy Proceed with risk factor modification Supplemental oxygen as warranted Oral Amiodarone 200mg qhs for now Metoprolol Tartrate 75mg bid Diltiazem 120mg once daily Atorvastatin 20mg daily Benazepril 20mg daily Lasix 20mg IVP daily Management of UTI/Pneumonia as per primary team Management of co-morbidities as per primary team Outpatient surveillance of thyroid nodule advised On IV antibiotic therapy as per primary team Consider out-patient ischemic workup Proceed with close hemodynamic surveillance Proceed with optimized blood pressure control Transfuse to sustain HGB level above 7.0 Sustain Magnesium level greater than 2.0 Sustain Potassium level greater than 4.0 Follow up renal function and electrolytes Management in telemetry Will proceed to follow from a cardiac perspective Further recommendations per clinical progression All available diagnostic labs, EKG's, and images were personally reviewed Patient's status, findings, and plan of care was reviewed and discussed with supervising physician Dr. Peters, who is in agreement with current plan of care. Plan of care discussed with and agreed upon by patient / primary RN Prognosis: Guarded Thank you for allowing me to participate in the care of this patient. Further recommendations based on patients clinical course and progression, primary attending, and other consultants. Will continue to follow with primary attending. If you have any questions or concerns, please do not hesitate to contact me. A total of 75 minutes was spent reviewing the patient record, examining the patient, making a diagnostic and therapeutic plan, discussing this plan with medical personnel, following up on diagnostic studies and following the patient for clinical stability excluding any and all procedures. At least 50% of this time was spent in direct, [id number] contact. Plan discussed with: Other (Patient and Primary RN ) Plan discussed with: Patient (Patient and Primar RN ) JOHNSON MATOSP Jul 12, 2024 06:33
--- NOTE | 2024-07-12 06:47 | DVH ---
EXAM: XR Cervical Spine, 6 or More Views CLINICAL INDICATION: chf TECHNIQUE: Frontal, lateral, oblique and flexion/extension views of the cervical spine. COMPARISON: XY CHEST PORTABLE on DOS: 07/06/24 FINDINGS: VERTEBRAE: Unremarkable. No acute fracture. Normal alignment. No instability. DISC SPACES: No acute findings. No significant narrowing. SOFT TISSUES: Unremarkable. HEART: Cardiomegaly with mild congestion. OTHER FINDINGS: . . . .. IMPRESSION: Cardiomegaly with mild congestion.
[2024-07-12 07:37] LABS: Basophils # (auto) 0 10 ^3/uL (0-0.2); Basophils % (auto) 0.2 % (0.0-2.0); Eosinophils # (auto) 0 10 ^3/uL (0-0.8); Eosinophils % (auto) 0.2 % (0.0-7.0); Hematocrit 32.5 % (36.0-46.0); Hemoglobin 11.2 g/dL (12.2-16.2); Lymphocytes # (auto) 0.7 10 ^3/uL (0.4-5.4); Lymphocytes % (auto) 4.1 % (10.0-50.0); Mean Corpuscular Hemoglobin 31.2 pg (28.0-32.0); Mean Corpuscular Hgb Conc. 34.3 g/dL (32.0-36.0); Monocytes # (auto) 0.8 10 ^3/uL (0-1.3); Monocytes % (auto) 5.2 % (0.0-12.0); Neutrophils # (auto) 14.6 10 ^3/uL (1.6-8.6); Neutrophils % (auto) 90.3 % (37.0-80.0); Nucleated Red Blood Cells % 0.1 %; Platelet Count (auto) 279 10^3/uL (140-450); Red Blood Cells 3.58 10^6/uL (4.0-5.20); Red Cell Distribution Width 13.1 % (11.8-14.3); White Blood Cell 16.1 10^3/uL (4.4-10.8)
[2024-07-12 09:25] LABS: Anion Gap 7 (5-15); Carbon Dioxide 28 mmol/L (20-31); Chloride 100 mmol/L (98-107); Potassium 4.3 mmol/L (3.5-5.1)
[2024-07-12 09:26] LABS: Calcium 9.3 mg/dL (8.7-10.4)
[2024-07-12 09:31] LABS: Glucose 100 mg/dL (74-106)
[2024-07-12 09:32] LABS: BUN/Creatinine Ratio 16.4 (10.0-20.0); Blood Urea Nitrogen 22 mg/dL (9-23)
[2024-07-12 09:35] LABS: Sodium 135 mmol/L (136-145)
--- NOTE | 2024-07-12 10:38 | DVHPN2 ---
Progress Note Date Seen: Jul 12, 2024 Medical Necessity Reason Pt with a Central, PICC or Fol: No Subjective Patient reports: No new complaints Review of Systems: HEENT:Normal, CVS:Normal, RESPIRATORY:Normal, GI:Normal, :Normal, MSK:Normal, NEURO:Normal Objective vital signs Vital Sign Date Time Temp Pulse Resp B/P (MAP) Pulse Ox O2 Delivery O2 Flow Rate FiO2 07/12/24 10:07 124/62 07/12/24 10:06 93 07/12/24 09:30 98.5 20 95 98.5 07/12/24 08:00 Nasal Cannula* 3 32 Total Intake and Output 07/11/24 07/11/24 07/12/24 15:00 23:00 07:00 Intake Total 594 ml 2138 ml 950 ml Output Total 2302 ml 700 ml Balance 594 ml -164 ml 250 ml medications Current Medications Medications Dose Ordered Sig/Nicholas Route Start Time Stop Time Status Last Admin Dose Admin Nitroglycerin 0.4 mg Q5MINP PRN SL 07/06/24 19:30 Morphine Sulfate 2 mg Q30M PRN IV 07/06/24 19:30 Ceftriaxone Sodium 50 ml @ 100 mls/hr DAILY IV 07/06/24 19:59 07/12/24 10:04 100 MLS/HR Ipratropium [place] 0.5 mg Q6HP NEB 07/07/24 00:00 07/12/24 07:54 0.5 MG Atorvastatin Calcium 20 mg HS PO 07/07/24 22:00 07/11/24 21:41 20 MG Diltiazem HCl 120 mg DAILY PO 07/07/24 10:00 07/12/24 10:06 120 MG Metoprolol Tartrate 75 mg BID PO 07/07/24 10:00 07/12/24 10:06 75 MG Patient Own Medication 1 tab BID PO 07/07/24 10:00 UNV Patient Own Medication 1 tab BID PO 07/07/24 10:00 UNV Azithromycin 250 ml @ 125 mls/hr DAILY IV 07/07/24 10:00 Hold Benazepril HCl 20 mg DAILY PO 07/08/24 10:00 07/12/24 10:07 20 MG Furosemide 20 mg DAILY IV 07/08/24 10:00 07/12/24 10:05 20 MG Diagnostic Test (Pha) 1 strip ACHS 07/07/24 17:00 07/12/24 06:03 1 STRIP Insulin Human Regular ACHS SC 07/07/24 17:00 07/11/24 21:58 2 UNITS Dextrose 50 ml UD PRN IV 07/07/24 16:15 Guaifenesin/ Dextromethorphan 10 ml Q4HP PRN PO 07/07/24 16:15 07/11/24 21:41 10 ML Amiodarone HCl 200 mg HS PO 07/08/24 22:00 07/11/24 21:42 200 MG Potassium Bicarbonate 50 meq DAILY PO 07/10/24 10:00 07/12/24 10:04 50 MEQ Apixaban 5 mg BID PO 07/11/24 22:00 07/12/24 10:06 5 MG Examination: GENERAL:Normal, HEENT:Normal, NECK:Normal, LUNGS:Normal, LUNGS:Abnormal (on oxygen), CVS:Normal, ABDOMEN:Normal, MSK:Normal, SKIN:Normal, NEURO:Normal, :Normal laboratory and microbiology Laboratory Tests 07/12/24 06:44 Test 07/12/24 06:44 Range/Units Serum Glucose 100 74-106 mg/dL Microbiology Date/Time Source Procedure Growth Status 07/08/24 13:55 Voided Urine Urine Culture - Final Complete 07/07/24 09:59 Blood Blood Culture - Final NO GROWTH AFTER 5 DAYS OF INCUBATION. Complete Problem List/Assessment/Plan Problem List/Assessment/Plan #1 acute on chronic diastolic heart failure: lasix iv #2 dm: ssi '#3 htn #4 a fib with rvr: cont meds, cardio eval #5 morbid obesity #6 ckd stage 3 #7 ? pneumonia: iv rocephin advance care planning- full code-time spent 19 mins Plan discussed with: Patient My Orders My Orders Orders - CHARLIE TOBIN MD Procedure Category Date Status Time Apixaban (Eliquis) PHA 07/11/24 In Process 22:00 Chest Portable XY 07/12/24 Resulted 06:00 Pt Request For Service PT 07/11/24 Logged 10:50 * Integration Software Engineer CONS 07/11/24 Transmitted Consult Discontinue Krause ALEIDA 07/11/24 In Process Catheter 10:54 Mrsa Screen TONYA 07/12/24 In Process 00:30 Date of Service: Jul 12, 2024 Billing Provider: CHARLIE TOBIN MD Common Visit Codes: [id number] INP/OBS CARE(HIGH) CHARLIE TOBIN MD Jul 12, 2024 10:38
[2024-07-12] MEDS: dilTIAZem 25 MG/5 ML VIAL IV ONE (10:47)
[2024-07-13] VITALS (11 sets, daily range): BP systolic 118–149; BP diastolic 55–89; PULSE 77–100; RESP 18–20; TEMP 97.9–98.2; O2SAT 92–100
[2024-07-13 07:05] LABS: Basophils # (auto) 0 10 ^3/uL (0-0.2); Basophils % (auto) 0.1 % (0.0-2.0); Eosinophils # (auto) 0 10 ^3/uL (0-0.8); Eosinophils % (auto) 0.4 % (0.0-7.0); Hematocrit 35.6 % (36.0-46.0); Hemoglobin 11.8 g/dL (12.2-16.2); Lymphocytes # (auto) 0.9 10 ^3/uL (0.4-5.4); Lymphocytes % (auto) 8.6 % (10.0-50.0); Mean Corpuscular Hemoglobin 30.6 pg (28.0-32.0); Mean Corpuscular Hgb Conc. 33.2 g/dL (32.0-36.0); Mean Corpuscular Volume 92.3 fL (80.0-100.0); Monocytes # (auto) 0.7 10 ^3/uL (0-1.3); Monocytes % (auto) 6.3 % (0.0-12.0); Neutrophils # (auto) 8.8 10 ^3/uL (1.6-8.6); Neutrophils % (auto) 84.6 % (37.0-80.0); Nucleated Red Blood Cells % 0.1 %; Platelet Count (auto) 278 10^3/uL (140-450); Red Blood Cells 3.85 10^6/uL (4.0-5.20); White Blood Cell 10.4 10^3/uL (4.4-10.8)
[2024-07-13 07:06] LABS: Anion Gap 6 (5-15); Potassium 4.4 mmol/L (3.5-5.1); Sodium 136 mmol/L (136-145)
[2024-07-13 07:07] LABS: Calcium 9.6 mg/dL (8.7-10.4)
[2024-07-13 07:13] LABS: BUN/Creatinine Ratio 13.4 (10.0-20.0); Blood Urea Nitrogen 19 mg/dL (9-23); Glucose 96 mg/dL (74-106)
[2024-07-13 07:14] LABS: Carbon Dioxide 33 mmol/L (20-31); Chloride 97 mmol/L (98-107)
--- NOTE | 2024-07-13 07:54 | DVHPN2 ---
Progress Note - Dictate Date Seen: Jul 13, 2024 Medical Necessity Reason Pt with a Central, PICC or Fol: No Subjective Seen and examined at the bedside within telemetry. Rate controlled atrial fibrillation on telemetry review. Denies chest pain or shortness of breath. Currently on supplemental oxygen. Hemodynamically stable at present. Chart reviewed. vital signs Vital Sign Date Time Temp Pulse Resp B/P (MAP) Pulse Ox O2 Delivery O2 Flow Rate FiO2 07/13/24 06:26 91 20 98 07/13/24 06:25 Nasal Cannula* 2 28 07/13/24 05:00 98.2 118/71 (87) 98.2 Total Intake and Output 07/12/24 07/12/24 07/13/24 15:00 23:00 07:00 Intake Total 50 ml 840 ml 920 ml Output Total 700 ml 8 ml Balance 50 ml 140 ml 912 ml medications Current Medications Medications Dose Ordered Sig/Nicholas Route Start Time Stop Time Status Last Admin Dose Admin Nitroglycerin 0.4 mg Q5MINP PRN SL 07/06/24 19:30 Morphine Sulfate 2 mg Q30M PRN IV 07/06/24 19:30 Ceftriaxone Sodium 50 ml @ 100 mls/hr DAILY IV 07/06/24 19:59 07/12/24 10:04 100 MLS/HR Ipratropium [place] 0.5 mg Q6HP NEB 07/07/24 00:00 07/13/24 06:24 0.5 MG Atorvastatin Calcium 20 mg HS PO 07/07/24 22:00 07/12/24 21:33 20 MG Diltiazem HCl 120 mg DAILY PO 07/07/24 10:00 07/12/24 10:06 120 MG Metoprolol Tartrate 75 mg BID PO 07/07/24 10:00 07/12/24 21:35 75 MG Patient Own Medication 1 tab BID PO 07/07/24 10:00 UNV Patient Own Medication 1 tab BID PO 07/07/24 10:00 UNV Benazepril HCl 20 mg DAILY PO 07/08/24 10:00 07/12/24 10:07 20 MG Furosemide 20 mg DAILY IV 07/08/24 10:00 07/12/24 10:05 20 MG Diagnostic Test (Pha) 1 strip ACHS 07/07/24 17:00 07/13/24 06:50 1 STRIP Insulin Human Regular ACHS SC 07/07/24 17:00 07/12/24 21:36 2 UNITS Dextrose 50 ml UD PRN IV 07/07/24 16:15 Guaifenesin/ Dextromethorphan 10 ml Q4HP PRN PO 07/07/24 16:15 07/12/24 12:02 10 ML Amiodarone HCl 200 mg HS PO 07/08/24 22:00 07/12/24 21:33 200 MG Apixaban 5 mg BID PO 07/11/24 22:00 07/12/24 21:35 5 MG laboratory and microbiology Laboratory Tests 07/13/24 06:04 Test 07/13/24 06:04 Range/Units Serum Glucose 96 74-106 mg/dL Assessment/Plan Plan/Recommendation ASSESSMENT: This is a 79-year old female known outside to our practice who initially presented (07/06/2024) with reported shortness of breath for approximately 1.5 weeks prior to arrival. Reports she underwent evaluation at [facility] and found in atrial fibrillation with RVR subsequently referred to ED for further management. Upon ED arrival, initial 12-lead electrocardiogram was performed revealing atrial fibrillation with a ventricular rate of 126 bpm, LBBB, with no acute ischemic changes subsequently initiated on Amiodarone infusion. Initial HS troponin level found elevated at 216. BNP level found elevated at 259 which initial chest x-ray revealed no evidence for vascular congestion. Echocardiogram (07/07/2024) was performed revealing a preserved LVEF of 55% with bi-atrial enlargement, RV enlargement, with an RVSP of 45mmHg. Initial WBC count was found elevated which CT imaging of the chest revealed presence of multifocal pneumonia in addition to presence of an underling urinary tract infection. Initial potassium level found to be 3.3 with a magnesium level of 2.0. Initial creatinine level of 1.43 with subsequent trend to 1.32. TSH level is 0.17 with an A1C level of 7.3. At present, denies any active chest pain, palpitations, dizziness, syncope, or any further cardiac related symptoms. As the patient presented with atrial fibrillation with RVR, Electrophysiology services have now been involved by primary team request for further evaluation and management. 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) Diabetes mellitus II, A1C of 7.3 ERNESTO superimposed on CKD Abnormal TSH level (0.17) Pulmonary hypertension Urinary tract infection Thyroid nodule Morbid obesity Hyperlipidemia Hypertension Hypokalemia Anemia CARDIAC SUGGESTIONS FOR MANAGEMENT: Full anticoagulation for CVA prophylaxis in setting of AF is advised Therapeutic Lovenox for now, transition to DOAC upon discharge Proceed with close observation for overt signs of fluid overload Proceed with strict intakes, outputs, and daily weights Proceed with close rate and rhythm surveillance Proceed with optimized medical therapy Proceed with risk factor modification Supplemental oxygen as warranted Oral Amiodarone 200mg qhs for now Metoprolol Tartrate 75mg bid Diltiazem 120mg once daily Atorvastatin 20mg daily Benazepril 20mg daily Lasix 20mg IVP daily Management of UTI/Pneumonia as per primary team Management of co-morbidities as per primary team Outpatient surveillance of thyroid nodule advised On IV antibiotic therapy as per primary team Consider out-patient ischemic workup Proceed with close hemodynamic surveillance Proceed with optimized blood pressure control Transfuse to sustain HGB level above 7.0 Sustain Magnesium level greater than 2.0 Sustain Potassium level greater than 4.0 Follow up renal function and electrolytes Management in telemetry Will proceed to follow from a cardiac perspective Further recommendations per clinical progression All available diagnostic labs, EKG's, and images were personally reviewed Patient's status, findings, and plan of care was reviewed and discussed with supervising physician Dr. Peters, who is in agreement with current plan of care. Plan of care discussed with and agreed upon by patient / primary RN Prognosis: Guarded Thank you for allowing me to participate in the care of this patient. Further recommendations based on patients clinical course and progression, primary attending, and other consultants. Will continue to follow with primary attending. If you have any questions or concerns, please do not hesitate to contact me. A total of 75 minutes was spent reviewing the patient record, examining the patient, making a diagnostic and therapeutic plan, discussing this plan with medical personnel, following up on diagnostic studies and following the patient for clinical stability excluding any and all procedures. At least 50% of this time was spent in direct, [id number] contact. Plan discussed with: Other (Patient and Primary RN ) Plan discussed with: Patient (Patient and Primary RN ) JOHNSON MATOS OPERATIONS OFFICER [employer] Jul 13, 2024 07:54
--- NOTE | 2024-07-13 09:51 | DVHDS2 ---
Discharge Summary Date of Admission Jul 06, 2024 at 19:19 Date of Discharge: Jul 13, 2024 Labs/Diagnostic Data: Laboratory Results Test 07/13/24 06:20 07/13/24 06:04 07/12/24 00:30 07/11/24 06:15 POC Glucose 93 mg/dl (70-106) White Blood Count 10.4 10^3/uL (4.4-10.8) Red Blood Count 3.85 10^6/uL (4.0-5.20) Hemoglobin 11.8 g/dL (12.2-16.2) Hematocrit 35.6 % (36.0-46.0) Mean Corpuscular Volume 92.3 fL (80.0-100.0) Mean Corpuscular Hemoglobin 30.6 pg (28.0-32.0) Mean Corpuscular Hemoglobin Concent 33.2 g/dL (32.0-36.0) Red Cell Distribution Width 13.0 % (11.8-14.3) Platelet Count 278 10^3/uL (140-450) Mean Platelet Volume 8.3 fL (6.9-10.8) Neutrophils (%) (Auto) 84.6 % (37.0-80.0) Lymphocytes (%) (Auto) 8.6 % (10.0-50.0) Monocytes (%) (Auto) 6.3 % (0.0-12.0) Eosinophils (%) (Auto) 0.4 % (0.0-7.0) Basophils (%) (Auto) 0.1 % (0.0-2.0) Neutrophils # (Auto) 8.8 10 ^3/uL (1.6-8.6) Lymphocytes # (Auto) 0.9 10 ^3/uL (0.4-5.4) Monocytes # (Auto) 0.7 10 ^3/uL (0-1.3) Eosinophils # (Auto) 0 10 ^3/uL (0-0.8) Basophils # (Auto) 0 10 ^3/uL (0-0.2) Nucleated Red Blood Cells 0.1 % Sodium Level 136 mmol/L (136-145) Potassium Level 4.4 mmol/L (3.5-5.1) Chloride Level 97 mmol/L (98-107) Carbon Dioxide Level 33 mmol/L (20-31) Anion Gap 6 (5-15) Blood Urea Nitrogen 19 mg/dL (9-23) Creatinine 1.42 mg/dL (0.550-1.02) Glomerular Filtration Rate Calc 38 mL/min (>90) BUN/Creatinine Ratio 13.4 (10.0-20.0) Serum Glucose 96 mg/dL (74-106) Calcium Level 9.6 mg/dL (8.7-10.4) Influenza Type A Antigen Negative (Negative) Influenza Type B Antigen Negative (Negative) SARS-CoV-2 Antigen (Rapid) Negative (NEGATIVE) Total Bilirubin 0.3 mg/dL (0.2-1.0) Aspartate Amino Transferase (AST) 27 U/L (13-40) Alanine Aminotransferase (ALT) 23 U/L (7-40) Alkaline Phosphatase 125 U/L (46-116) Total Protein 5.9 g/dL (5.7-8.2) Albumin 3.1 g/dL (3.2-4.8) Test 07/09/24 05:58 07/08/24 17:41 07/08/24 16:35 07/08/24 05:31 Differential Total Cells Counted 100.0 (100) Neutrophils % (Manual) 75 (37.0-80.0) Band Neutrophils % (Manual) 11 Lymphocytes % (Manual) 7 (10.0-50.0) Monocytes % (Manual) 7 (0-12) Eosinophils % (Manual) 0 (0-7) Basophils % (Manual) 0 (0.0-2.0) Metamyelocytes % (manual) 0 Myelocytes % (Manual) 0 Promyelocytes % (Manual) 0 Blast Cells % (Manual) 0 Reactive Lymphocytes 0 Platelet Estimate Adequate D-Dimer, Quantitative 0.69 mg/L FEU (0.0-0.49) Troponin I High Sensitivity 191 ng/L (</=34) Triglycerides Level 103 mg/dL (< 150) Cholesterol Level 83 mg/dL (< 200) LDL Cholesterol 40 mg/dL (< 100) HDL Cholesterol 33 mg/dL (40-59) Hemoglobin A1c 7.3 % A1C (<5.7) B-Type Natriuretic Peptide 259.60 pg/mL (0-100) Thyroid Stimulating Hormone (TSH) 0.17 uIU/mL (0.55-4.78) Test 07/08/24 01:13 07/07/24 08:08 07/07/24 06:04 07/07/24 06:02 Urine Color Light-yellow (Yellow) Urine Clarity Turbid (Clear) Urine pH 6.0 (5.0-9.0) Urine Specific [place] 1.010 (1.001-1.035) Urine Protein 2+ (Negative) Urine Ketones Negative (Negative) Urine Blood 1+ /uL (Negative) Urine Nitrite Negative (Negative) Urine Bilirubin Negative (Negative) Urine Urobilinogen Normal mg/dL (Negative) Urine Leukocyte Esterase 2+ /uL (Negative) Urine RBC 3 /hpf (0 - 4) Urine Microscopic WBC 49 /HPF (0-5) Urine Squamous Epithelial Cells Few /hpf (<5) Urine Bacteria Few /hpf (None Seen) Urine Hyaline Casts Few /lpf (0 - 2) Urine Mucus Few (None Seen) Urine Glucose 1+ mg/dL (Normal) Blood Gas Specimen Type Arterial Blood Gas Sample Site Right radial Blood Gas Patient Temperature 37.0 Arterial Blood Date Drawn [id number] Arterial Blood pH 7.424 (7.350-7.450) Arterial Blood Partial Pressure CO2 32.7 mmHg (32.0-45.0) Arterial Blood Partial Pressure O2 72.0 mmHg (83.0-108.0) Arterial Blood HCO3 20.9 mmol/L (21.0-28.0) Arterial Blood Oxygen Saturation 93.8 % (94.0-98.0) Arterial Blood Base Excess -2.7 mmol/L (-2.0-3.0) Arterial Blood Oxyhemoglobin 93.2 % (94.0-98.0) Arterial Blood Carboxyhemoglobin 0.3 % (0.5-1.5) Arterial Blood Methemoglobin 0.3 % (0.0-1.5) Veto Test Yes Blood Gas Total Hemoglobin 12.60 g/dL (12.0-16.0) Blood Gas Modality Nasal cannula FiO2 % 36.0 Prothrombin Time 12.6 sec (9.3-11.8) Prothrombin Time INR 1.21 (0.9-1.15) Magnesium Level 2.0 mg/dL (1.6-2.6) Other Laboratory Tests 07/13/24 06:04 Brief Hx & Hospital Course: see dictated note Condition at Discharge: Fair Final Diagnosis/Problems List chf Discharge Disposition: Residential Facility Discharge Instruct/Medications Diet: Cardiac 2g Na,low cholest Activity: No Restrictions, As Tolerated Follow Up/Referral: fu with dr Wakefield Medications: per aug Discharge Statement: "Patient was advised to return to the ER or call 911 if any headaches, dizziness, shortness of breath, chest pain, abdominal pain, bleeding, fevers, or worsening of medical condition. Patient was counseled about treatment plan, medications, possible side effects, patientverbalized understanding. All questions were answered to the best of my ability. This discharge took greater then 30 minutes in planning, reviewing documentation, counseling the patient, and discussing with other team members." ASSESSMENT ASSESSMENT Assessment chf Date of Service: Jul 13, 2024 Billing Provider: CHARLIE TOBIN MD Common Visit Codes: 93955-KJS/OBS DISCH DAY >30min CHARLIE TOBIN MD Jul 13, 2024 09:51
--- NOTE | 2024-07-13 10:09 | DVHDS ---
DATE OF DISCHARGE: 07/13/2024 DATE OF TRANSFER TO [place]: 07/13/2024 HISTORY OF PRESENT ILLNESS: The patient is a 79-year-old lady who was admitted with complaints of atrial fibrillation with rapid ventricular rate, and lower extremity swelling. The patient has history of atrial fibrillation, diabetes, congestive heart failure, hypertension, and hyperlipidemia. HOSPITAL COURSE: The patient was seen in cardiology consult by Dr. Peters. Echocardiogram done showed ejection fraction of 55%. The patient had a CT of the chest that showed bilateral lower lobe opacities. The patient had a thyroid ultrasound that showed nodule in the right upper lobe. The patient had blood and urine cultures that were negative. The patient's creatinine was about 1.4. The patient's white count was elevated to 13,000 that improved to 10,000 at time of discharge. She also had evidence of a urinary tract infection. The patient [facility] now [facility] with medications as per the medication reconciliation. FINAL DIAGNOSES: Therefore, * Acute on chronic diastolic heart failure. * Diabetes mellitus. * Hypertension. * Atrial fibrillation with rapid ventricular rate with secondary hypercoagulable state. * Morbid obesity. * Chronic kidney disease, stage III. * Likely sepsis with urinary tract infection. Time spent in discharge planning and review of plan with the patient and social economist and nursing was 38 minutes. MD MARICARMEN Abel/TASHA TID: [id number] RECEIPT: [id number]
== END 2024-07-13 14:50 | DRG 871 ==
LOC: EDBD 18:33 → ER 18:33 → OVERFLOW 19:19 → TELE-CENTR 19:27
PROVIDERS: ADMIT Internal Medicine; ATTEND Internal Medicine
DX: A41.9 Sepsis, unspecified organism (principal); I21.4 Non-ST elevation (NSTEMI) myocardial infarction; I50.33 Acute on chronic diastolic (congestive) heart failure; J96.01 Acute respiratory failure with hypoxia; I13.0 Hypertensive heart and chronic kidney disease with heart failure and stage 1 through stage 4 chronic kidney disease, or unspecified chronic kidney disease; I48.19 Other persistent atrial fibrillation; Z68.41 Body mass index [BMI] 40.0-44.9, adult; N39.0 Urinary tract infection, site not specified; N17.9 Acute kidney failure, unspecified; D68.69 Other thrombophilia; Z20.822 Contact with and (suspected) exposure to COVID-19; E11.22 Type 2 diabetes mellitus with diabetic chronic kidney disease; E66.01 Morbid (severe) obesity due to excess calories; E78.5 Hyperlipidemia, unspecified; N18.30 Chronic kidney disease, stage 3 unspecified; E04.1 Nontoxic single thyroid nodule; I44.7 Left bundle-branch block, unspecified; E87.6 Hypokalemia; D64.9 Anemia, unspecified; I27.20 Pulmonary hypertension, unspecified; Z79.84 Long term (current) use of oral hypoglycemic drugs; Z79.899 Other long term (current) drug therapy; Z90.710 Acquired absence of both cervix and uterus
CPT/HCPCS: 36415; 36600; 71045; 71250; 76536; 80048; 80053; 80061; 81001; 82805; 82962; 83036; 83735; 83880; 84443; 84484; 85007; 85025; 85027; 85379; 85610; 87040; 87081; 87086; 87426; 87804; 93005; 93306; 94640; 96365; 96367; 96372; 97110; 97116; 97163; 97530; 99291; G0378; J1815

== ENCOUNTER 2024-09-13 18:02 | Inpatient (IN) | payer MEDICARE, BC ==
[~2024-09-13] VITALS: Ht 162.6 cm; Wt 95.4 kg
[~2024-09-13 18:02] MED LIST: ATOR20TA50 PO; BENA-36 PO; DILT120C41 PO; FENO160T PO; HYDR50TA47 PO; MET25T PO; METF-372 PO
[2024-09-13 19:30] VITALS: PULSE 74; RESP 16; O2SAT 98
--- NOTE | 2024-09-13 20:09 | ED.PDOC ---
History of Present Illness HPI Comments 79-year-old female BIBA for c/c of generalized weakness since 0800 this morning, unable to elaborate on symptoms. States 2 months ago she was seen at [facility] for low sodium and states that this feels like the same symptoms. Patient has history of A-Fib, on eliquis and metoprolol. Chief Complaint: General Weakness Time Seen by MD: 19:52 Primary Care Provider: [facility] Reviewed Notes: Medications, Allergies Allergies: Coded Allergies: NO KNOWN ALLERGIES (Unverified , 07/06/24) Home Meds Reported Medications Atorvastatin Calcium (ATORVASTATIN CALCIUM) 20 Mg Tab, 1 TAB PO HS 07/07/24 Diltiazem Hcl (Dilt-Xr) 120 Mg Cap, 1 TAB PO DAILY 07/07/24 Fenofibrate (Fenofibrate) 160 Mg Tab, 1 TAB PO DAILY 07/07/24 Hydralazine Hcl (Hydralazine Hcl) 50 Mg Tab, 1 TAB PO BID 07/07/24 Benazepril Hcl (Benazepril Hcl) 20 Mg Tab, 1 TAB PO BID 07/07/24 Metoprolol Tartrate (Lopressor) 25 Mg Tb, 3 TAB PO BID 07/07/24 Metformin Hydrochloride (Metformin Hcl) 1,000 Mg Tab, 500 MG PO BID 07/07/24 Information Source: Patient Mode of Arrival: EMS Severity: Moderate Timing: Hours Duration: Since onset Prehospital treatment: Environmental Designer Vital Signs Vital Signs Date Time Temp Pulse Resp B/P (MAP) Pulse Ox O2 Delivery O2 Flow Rate FiO2 09/13/24 19:30 74 16 98 Room Air* 0 21 09/13/24 19:30 97.8 101/49 (66) 97.8 Physical Exam General: Awake, alert and oriented. No acute distress. Skin: Skin in warm, dry and intact. Appropriate color for ethnicity. HEENT: The head is normocephalic and atraumatic. Conjunctivae are clear without exudates or hemorrhage. Sclera is non-icteric. EOM are intact. No signs of nystagmus. Eyelids are normal in appearance without swelling or lesions. Oral mucosa is pink and moist Neck: The neck is supple with normal range of motion. No JVD. Cardiac: Heart rate and rhythm are normal. No murmurs, gallops, or rubs are auscultated. Respiratory: No signs of respiratory distress. Lung sounds are clear in all lobes bilaterally without rales, ronchi, or wheezes. Abdominal: Abdomen is soft, non-tender without distention. Bowel sounds are present and normoactive in all four quadrants. Extremities: Upper and lower extremities are atraumatic in appearance without deformity or edema. Neurological: The patient is awake, alert and oriented to person, place, and time with normal speech. Speech is clear. There is no facial asymmetry. No lower upper extremity weakness. Sensation intact. Patient is able to sit herself up in the exam bed and hold herself in the upright position. Psychiatric: Appropriate mood and affect. Good judgement and insight. Review of Systems: REVIEW OF SYSTEMS: No fever, no chills, or fatigue HEENT: No sore throat, no earache, no congestion, no neck pain. Cardiac: No chest pain. No palpitations. Lungs: No shortness of breath, no cough. GI: No nausea, no vomiting, no diarrhea, no constipation, no abdominal pain : No dysuria, frequency, or urgency. No hematuria. Musculoskeletal: No joint pain , no joint swelling, no extremity edema. Skin: No rash, no itching. 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 Was a procedure done?: No Differential Dx Considerations may include: Urinary tract infection, electrolyte imbalance, acute coronary syndrome, sepsis, pneumonia, viral syndrome, CVA, congestive heart failure, other X-Ray, Labs, Meds, VS Vital Signs Date Time Temp Pulse Resp B/P (MAP) Pulse Ox O2 Delivery O2 Flow Rate FiO2 09/13/24 19:30 74 16 98 Room Air* 0 21 09/13/24 19:30 97.8 74 16 101/49 (66) 98 97.8 09/13/24 18:06 97.9 74 18 108/64 (79) 99 97.9 09/13/24 18:04 72 Lab Test 09/13/24 21:24 09/13/24 21:18 09/13/24 20:48 09/13/24 20:40 Range/Units POC Glucose 99 70-106 mg/dl Influenza Type A Antigen Negative Negative Influenza Type B Antigen Negative Negative SARS-CoV-2 Antigen (Rapid) Negative NEGATIVE White Blood Count 6.0 4.4-10.8 10^3/uL Red Blood Count 3.51 L 4.0-5.20 10^6/uL Hemoglobin 10.7 L 12.2-16.2 g/dL Hematocrit 31.8 L 36.0-46.0 % Mean Corpuscular Volume 90.6 80.0-100.0 fL Mean Corpuscular Hemoglobin 30.5 28.0-32.0 pg Mean Corpuscular Hemoglobin Concent 33.6 32.0-36.0 g/dL Red Cell Distribution Width 14.1 11.8-14.3 % Platelet Count 218 140-450 10^3/uL Mean Platelet Volume 7.5 6.9-10.8 fL Neutrophils (%) (Auto) 81.0 H 37.0-80.0 % Lymphocytes (%) (Auto) 10.2 10.0-50.0 % Monocytes (%) (Auto) 8.5 0.0-12.0 % Eosinophils (%) (Auto) 0.1 0.0-7.0 % Basophils (%) (Auto) 0.2 0.0-2.0 % Neutrophils # (Auto) 4.8 1.6-8.6 10 ^3/uL Lymphocytes # (Auto) 0.6 0.4-5.4 10 ^3/uL Monocytes # (Auto) 0.5 0-1.3 10 ^3/uL Eosinophils # (Auto) 0 0-0.8 10 ^3/uL Basophils # (Auto) 0 0-0.2 10 ^3/uL Nucleated Red Blood Cells 0.1 % Prothrombin Time 12.8 H 9.3-11.8 sec Prothrombin Time INR 1.23 H 0.9-1.15 Sodium Level 121 L 136-145 mmol/L Potassium Level 3.6 3.5-5.1 mmol/L Chloride Level 89 L 98-107 mmol/L Carbon Dioxide Level 24 20-31 mmol/L Anion Gap 8 5-15 Blood Urea Nitrogen 23 9-23 mg/dL Creatinine 1.22 H 0.550-1.02 mg/dL Glomerular Filtration Rate Calc 46 >90 mL/min BUN/Creatinine Ratio 18.9 10.0-20.0 Serum Glucose 105 74-106 mg/dL Lactic Acid Level 0.7 0.4-2.0 mmol/L Calcium Level 9.9 8.7-10.4 mg/dL Total Bilirubin 0.6 0.2-1.0 mg/dL Aspartate Amino Transferase (AST) 29 13-40 U/L Alanine Aminotransferase (ALT) 17 7-40 U/L Alkaline Phosphatase 52 46-116 U/L Troponin I High Sensitivity 125 *H </=34 ng/L B-Type Natriuretic Peptide 227.63 0-100 pg/mL Total Protein 6.0 5.7-8.2 g/dL Albumin 3.7 3.2-4.8 g/dL Plasma/Serum Blood Alcohol < 3.0 <10 mg/dL Urine Color Colorless Yellow Urine Clarity Turbid H Clear Urine pH 6.0 5.0-9.0 Urine Specific [place] 1.004 1.001-1.035 Urine Protein 1+ H Negative Urine Ketones Negative Negative Urine Blood Negative Negative /uL Urine Nitrite Negative Negative Urine Bilirubin Negative Negative Urine Urobilinogen Normal Negative mg/dL Urine Leukocyte Esterase 3+ Negative /uL Urine RBC 2 0 - 4 /hpf Urine Microscopic WBC 41 H 0-5 /HPF Urine Squamous Epithelial Cells Few <5 /hpf Urine Bacteria Mod H None Seen /hpf Urine Glucose Normal Normal mg/dL Urine Opiates Screen Neg NEGATIVE Urine Fentanyl Screen Neg NEGATIVE Urine Barbiturates Screen Neg NEGATIVE Urine Phencyclidine Screen Neg NEGATIVE Urine Amphetamines Screen Neg NEGATIVE Urine Benzodiazepines Screen Neg NEGATIVE Urine Cocaine Screen Neg NEGATIVE Urine Cannabinoids Screen Neg NEGATIVE Current Medications Medications (Trade) Dose Ordered Sig/Nicholas Route Start Time Stop Time Status Last Admin Sodium Chloride 1,000 ml @ 100 mls/hr Q10H ONCE IV 09/13/24 22:00 09/14/24 07:59 09/13/24 22:49 Ceftriaxone Sodium 50 ml @ 100 mls/hr ONCE ONCE IV 09/13/24 22:00 09/13/24 22:29 DC 09/13/24 22:56 Time of 1ST Reevaluation: 20:22 Reevaluation 1ST: Unchanged Patient Education/Counseling: Diagnosis, Treatment, Prognosis Family Education/Counseling: No Family Present Departure 1 Departure Time of Disposition: 21:55 Impression: Primary Impression: Generalized weakness Additional Impressions: Acute kidney injury Elevated troponin Hyponatremia Urinary tract infection Disposition: ADMITTED INPATIENT Condition: Stable Comments 79-year-old female who presented to the emergency department with generalized weakness. Workup revealed that he has hyponatremia. Troponin is elevated however she has no EKG changes and is not complaining of any chest pain. We will trend troponin. Extensive evaluation was performed in attempt to identify or rule out: (See differential diagnosis section) The following tests were ordered, and results were reviewed by me and discussed with patient: (See diagnostic results section) The following test were independently interpreted by me: EKG, chest x-ray I reviewed and agreed with the following test results read by other providers: Chest x-ray I reviewed the following notes from the pt's past medical encounters: N/A Additional information was gathered from interviewing the following independent historians: N/A Discussion of management or test interpretation with external physician/other qualified health childcare center administrator: N/A Addressed an acute or chronic illness that poses a threat to life or bodily function: Hyponatremia, elevated troponin level, acute kidney injury Decision regarding hospitalization or escalation of hospital level of care: Risk and benefits of admission for further treatment of patient's condition was considered. Due to patient's current clinical condition, high risk of decline and poor outcome if discharged and need for further inpatient management and monitoring, patient will be admitted to the hospital. Drug therapy requiring intensive monitoring for toxicity: N/A Parenteral controlled substances: N/A Decision regarding elective major surgery with identified patient or procedure risk factors: N/A Decision regarding emergency major surgery: N/A Decision not to resuscitate or to de-escalate care because of poor prognosis: N/A Diagnosis or treatment significantly limited by social determinants of health: N/A Critical Care Note Critical Care Time?: No Stability Stability form required: No Heart Score Heart Score: Heart Score Response (Comments) Value History N/A 0 EKG N/A 0 Age N/A 0 Risk Factors N/A 0 Troponin N/A 0 Total 0 I personally scribed for VIKRAM MOORE MD ([email or web address]) on 09/13/24 at 20:09. Electronically submitted by Telly Clifton ([email or web address]). VIKRAM MOORE MD Sep 13, 2024 20:09
[2024-09-13 21:00] LABS: Basophils # (auto) 0 10 ^3/uL (0-0.2); Basophils % (auto) 0.2 % (0.0-2.0); Eosinophils # (auto) 0 10 ^3/uL (0-0.8); Eosinophils % (auto) 0.1 % (0.0-7.0); Hematocrit 31.8 % (36.0-46.0); Hemoglobin 10.7 g/dL (12.2-16.2); Lymphocytes # (auto) 0.6 10 ^3/uL (0.4-5.4); Lymphocytes % (auto) 10.2 % (10.0-50.0); Mean Corpuscular Hemoglobin 30.5 pg (28.0-32.0); Mean Corpuscular Hgb Conc. 33.6 g/dL (32.0-36.0); Mean Corpuscular Volume 90.6 fL (80.0-100.0); Monocytes # (auto) 0.5 10 ^3/uL (0-1.3); Monocytes % (auto) 8.5 % (0.0-12.0); Neutrophils # (auto) 4.8 10 ^3/uL (1.6-8.6); Nucleated Red Blood Cells % 0.1 %; Platelet Count (auto) 218 10^3/uL (140-450); Red Blood Cells 3.51 10^6/uL (4.0-5.20); Red Cell Distribution Width 14.1 % (11.8-14.3)
[2024-09-13 21:17] LABS: INR 1.23 (0.9-1.15); Prothrombin Time 12.8 sec (9.3-11.8)
[2024-09-13 21:20] LABS: Alanine Aminotransferase 17 U/L (7-40); Albumin 3.7 g/dL (3.2-4.8); Alkaline Phosphatase 52 U/L (46-116); Anion Gap 8 (5-15); Aspartate Aminotransferase 29 U/L (13-40); BUN/Creatinine Ratio 18.9 (10.0-20.0); Calcium 9.9 mg/dL (8.7-10.4); Carbon Dioxide 24 mmol/L (20-31); Glucose 105 mg/dL (74-106); Potassium 3.6 mmol/L (3.5-5.1)
[2024-09-13 21:21] LABS: Bilirubin, Total 0.6 mg/dL (0.2-1.0)
[2024-09-13 21:24] LABS: Blood Urea Nitrogen 23 mg/dL (9-23); Chloride 89 mmol/L (98-107); Sodium 121 mmol/L (136-145)
[2024-09-13 21:33] LABS: Urine Bacteria MOD /hpf (None Seen); Urine Blood Negative /uL (Negative); Urine Clarity Turbid (Clear); Urine Color Colorless (Yellow); Urine Protein, UAD 1+ (Negative); Urine Specific Gravity 1.004 (1.001-1.035); Urine Squamous Epithelial Cell FEW /hpf (<5); Urine Urobilinogen Normal (Negative); Urine WBC 41 /HPF (0-5)
[2024-09-13 21:41] LABS: Barbiturate Scree,Urine Neg (NEGATIVE); Opiate Scree,Urine Neg (NEGATIVE); Phencyclidine Screen, Urine Neg (NEGATIVE)
[2024-09-13 21:42] LABS: Amphetamine Screen, Urine Neg (NEGATIVE); Benzodiazephine Screen, Urine Neg (NEGATIVE); Cannabinoid Screen, Urine Neg (NEGATIVE); Cocaine Screen, Urine Neg (NEGATIVE)
[2024-09-13 21:52] LABS: COVID19 ANTIGEN SOFIA FIA NEGATIVE (NEGATIVE); Rapid Influenza A Negative (Negative); Rapid Influenza B Negative (Negative)
--- NOTE | 2024-09-13 22:14 | DVH ---
CHEST RADIOGRAPH Indication: hypoxia Technique: Single frontal view of the chest was obtained COMPARISON: XY CHEST PORTABLE on DOS: 07/12/24, XY CHEST PORTABLE on DOS: 07/06/24 FINDINGS: Lines and Tubes: None Lungs: Mild pulmonary vascular congestion. Pleura: No effusion. No pneumothorax. Cardiomediastinal contours: Mild cardiomegaly. Bones: Unremarkable IMPRESSION: Mild cardiomegaly and mild pulmonary vascular congestion. No significant change compared to the prior chest x-ray from 07/12/24.
[2024-09-13] MEDS: SODIUM CHLORIDE 0.9% 1,000 ML IV ONE (22:49)
[2024-09-13] MEDS: cefTRIAXone 1GM/50ML D5W 50 ML IV ONE (22:56)
[2024-09-14 02:44] VITALS: PULSE 72; RESP 16; O2SAT 96
--- NOTE | 2024-09-14 04:04 | ECG ---
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
--- NOTE | 2024-09-14 07:21 | DVHHP2 ---
History of Present Illness Reason for Visit: Generalized weakness History of Present Illness Nicolasa rAthur is a 79-year-old female with past medical history of AFib on Eliquis and metoprolol, status post ablation, and hysterectomy who presents to the ED with generalized weakness. Patient reports that since March she has been feeling weak. Upon examination patient has a Krause catheter in place. Patient denies any chest pain, shortness of breath, fever, chills, lightheadedness, dizziness, recent sick contacts, recent travels, recent ingestion of spoiled food, abdominal pain, nausea, vomiting, or diarrhea. Patient also denies any hematuria, dysuria, frequency, or urgency. Cardiovascular: AFIB Past Surgical History: Hysterectomy, Other (Ablation) Family History: Other (Mom and dad with heart disease) Smoke: No ALCOHOL: none Drugs: None Lives: with Family Domestic Violence: Neg Review of Systems Constitutional: Yes: Weakness Allergies: Coded Allergies: NO KNOWN ALLERGIES (Unverified , 07/06/24) Exam Vital Signs Vital Signs Date Time Temp Pulse Resp B/P (MAP) Pulse Ox O2 Delivery O2 Flow Rate FiO2 09/14/24 05:00 60 12 106/55 (72) 96 09/13/24 19:30 Room Air* 0 21 09/13/24 19:30 97.8 97.8 General Appearance: Alert, Oriented X3, Cooperative, No acute distress HEENT: Atraumatic, PERRLA, EOMI, Mucous membr. moist/pink Respiratory: Normal air movement Cardiovascular: Regular rate, Normal S1, Normal S2, No murmurs Abdominal: Normal bowel sounds, Soft, No tenderness Extremities: No clubbing, No cyanosis Neuro: Normal speech, Normal tone, Sensation intact Psych/Mental Status: Mental status NL, Mood NL Labs/Xrays Labs Test 09/14/24 03:57 09/13/24 21:24 09/13/24 21:18 09/13/24 20:48 Range/Units Troponin I High Sensitivity 121 *H </=34 ng/L POC Glucose 99 70-106 mg/dl Influenza Type A Antigen Negative Negative Influenza Type B Antigen Negative Negative SARS-CoV-2 Antigen (Rapid) Negative NEGATIVE White Blood Count 6.0 4.4-10.8 10^3/uL Red Blood Count 3.51 L 4.0-5.20 10^6/uL Hemoglobin 10.7 L 12.2-16.2 g/dL Hematocrit 31.8 L 36.0-46.0 % Mean Corpuscular Volume 90.6 80.0-100.0 fL Mean Corpuscular Hemoglobin 30.5 28.0-32.0 pg Mean Corpuscular Hemoglobin Concent 33.6 32.0-36.0 g/dL Red Cell Distribution Width 14.1 11.8-14.3 % Platelet Count 218 140-450 10^3/uL Mean Platelet Volume 7.5 6.9-10.8 fL Neutrophils (%) (Auto) 81.0 H 37.0-80.0 % Lymphocytes (%) (Auto) 10.2 10.0-50.0 % Monocytes (%) (Auto) 8.5 0.0-12.0 % Eosinophils (%) (Auto) 0.1 0.0-7.0 % Basophils (%) (Auto) 0.2 0.0-2.0 % Neutrophils # (Auto) 4.8 1.6-8.6 10 ^3/uL Lymphocytes # (Auto) 0.6 0.4-5.4 10 ^3/uL Monocytes # (Auto) 0.5 0-1.3 10 ^3/uL Eosinophils # (Auto) 0 0-0.8 10 ^3/uL Basophils # (Auto) 0 0-0.2 10 ^3/uL Nucleated Red Blood Cells 0.1 % Prothrombin Time 12.8 H 9.3-11.8 sec Prothrombin Time INR 1.23 H 0.9-1.15 Sodium Level 121 L 136-145 mmol/L Potassium Level 3.6 3.5-5.1 mmol/L Chloride Level 89 L 98-107 mmol/L Carbon Dioxide Level 24 20-31 mmol/L Anion Gap 8 5-15 Blood Urea Nitrogen 23 9-23 mg/dL Creatinine 1.22 H 0.550-1.02 mg/dL Glomerular Filtration Rate Calc 46 >90 mL/min BUN/Creatinine Ratio 18.9 10.0-20.0 Serum Glucose 105 74-106 mg/dL Lactic Acid Level 0.7 0.4-2.0 mmol/L Calcium Level 9.9 8.7-10.4 mg/dL Total Bilirubin 0.6 0.2-1.0 mg/dL Aspartate Amino Transferase (AST) 29 13-40 U/L Alanine Aminotransferase (ALT) 17 7-40 U/L Alkaline Phosphatase 52 46-116 U/L B-Type Natriuretic Peptide 227.63 0-100 pg/mL Total Protein 6.0 5.7-8.2 g/dL Albumin 3.7 3.2-4.8 g/dL Plasma/Serum Blood Alcohol < 3.0 <10 mg/dL Test 09/13/24 20:40 Range/Units Urine Color Colorless Yellow Urine Clarity Turbid H Clear Urine pH 6.0 5.0-9.0 Urine Specific [place] 1.004 1.001-1.035 Urine Protein 1+ H Negative Urine Ketones Negative Negative Urine Blood Negative Negative /uL Urine Nitrite Negative Negative Urine Bilirubin Negative Negative Urine Urobilinogen Normal Negative mg/dL Urine Leukocyte Esterase 3+ Negative /uL Urine RBC 2 0 - 4 /hpf Urine Microscopic WBC 41 H 0-5 /HPF Urine Squamous Epithelial Cells Few <5 /hpf Urine Bacteria Mod H None Seen /hpf Urine Glucose Normal Normal mg/dL Urine Opiates Screen Neg NEGATIVE Urine Fentanyl Screen Neg NEGATIVE Urine Barbiturates Screen Neg NEGATIVE Urine Phencyclidine Screen Neg NEGATIVE Urine Amphetamines Screen Neg NEGATIVE Urine Benzodiazepines Screen Neg NEGATIVE Urine Cocaine Screen Neg NEGATIVE Urine Cannabinoids Screen Neg NEGATIVE US BiLat Lower DVT HISTORY: DVT COMPARISON: None TECHNIQUE: Duplex Doppler evaluation of the deep venous system of the lower extremity from the common femoral veins, superficial femoral vein, great saphenous vein, deep femoral vein, popliteal vein, and calf veins, including color Doppler and spectral/pulsed waveform analysis, was performed. FINDINGS: Right: - Common femoral vein: Compressible - Deep femoral vein: Compressible - Femoral vein: Compressible - Popliteal vein: Compressible - Posterior tibial vein: Waveforms present - Other: Nothing Left: - Common femoral vein: Compressible - Deep femoral vein: Compressible - Femoral vein: Compressible - Popliteal vein: Compressible - Posterior tibial vein: Waveforms present - Other: Nothing IMPRESSION: No right or left lower extremity deep venous thrombosis. CHEST RADIOGRAPH Indication: hypoxia Technique: Single frontal view of the chest was obtained COMPARISON: XY CHEST PORTABLE on DOS: 07/12/24, XY CHEST PORTABLE on DOS: 07/06/24 FINDINGS: Lines and Tubes: None Lungs: Mild pulmonary vascular congestion. Pleura: No effusion. No pneumothorax. Cardiomediastinal contours: Mild cardiomegaly. Bones: Unremarkable IMPRESSION: Mild cardiomegaly and mild pulmonary vascular congestion. No significant change compared to the prior chest x-ray from 07/12/24. Assessment/Plan Assessment/Plan Assessment Acute diastolic heart failure NSTEMI likely type 2 Acute cystitis Anemia Hyponatremia ERNESTO History of diabetes type 2 History of AFib on Eliquis and metoprolol History of ablation 2 years ago History of hysterectomy Plan Admit to tele Krause catheterization COVID negative Flu negative UA IV antibiotics-ceftriaxone IV fluids given ED EKG Wound consult initiated by ED Urine sodium ordered by ED Chest x-ray PT/INR Lactic level UDS BNP Hemoglobin A1c ISS and Accu-Cheks Blood alcohol Last echo on 07/07/2024 EF 55% Cardiology consult Home medications reconciled DVT prophylaxis-patient on Eliquis PUD prophylaxis-Protonix Discussed plan of care with patient and nurse Plan discussed with: Patient Date of Service: Sep 14, 2024 Billing Provider: TRENTON BARKLEY Common Visit Codes: [id number] INP/OBS CARE (HIGH) TRENTON BARKLEY Sep 14, 2024 07:21
[2024-09-14] MEDS ORDERED: HYDROcodone-ACET 5/325MG TAB PO PRN (07:30)
[2024-09-14] MEDS ORDERED: ACETAMINOPHEN 325 MG TAB PO PRN (07:30)
[2024-09-14] MEDS ORDERED: ONDANSETRON HCL 4 MG/2 ML VIAL IV PRN (07:30)
[2024-09-14 08:00] VITALS: PULSE 75; RESP 12; O2SAT 98
[2024-09-14] MEDS: cefTRIAXone 1GM/50ML D5W 50 ML IV SCH (09:38)
[2024-09-14] MEDS: SODIUM CHLORIDE 0.9% 1,000 ML IV SCH (09:39)
[2024-09-14] MEDS ORDERED: DEXTROSE (50%) 50ML SYRG IV PRN (09:45)
[2024-09-14] MEDS: InsuLIN REG 1unit/0.01ml Soln (100units/ml) SC SCH (11:30)
--- NOTE | 2024-09-14 11:39 | DVHPN2 ---
Progress Note Date Seen: Sep 14, 2024 Medical Necessity Reason Pt with a Central, PICC or Fol: No Subjective Patient reports: No new complaints Review of Systems: HEENT:Normal, CVS:Normal, RESPIRATORY:Normal, GI:Normal, :Normal, MSK:Normal, NEURO:Normal Objective vital signs Vital Sign Date Time Temp Pulse Resp B/P (MAP) Pulse Ox O2 Delivery O2 Flow Rate FiO2 09/14/24 08:00 75 12 98 Room Air* 0 21 09/14/24 08:00 97.8 114/53 (73) 97.8 Total Intake and Output 09/13/24 09/13/24 09/14/24 15:00 23:00 07:00 Intake Total 850 ml Balance 850 ml medications Current Medications Medications Dose Ordered Sig/Nicholas Route Start Time Stop Time Status Last Admin Dose Admin Acetaminophen/ Hydrocodone Bitart 1 tab Q4HP PRN PO 09/14/24 07:30 Ondansetron HCl 4 mg Q4HP PRN IV 09/14/24 07:30 Acetaminophen 650 mg Q6HP PRN PO 09/14/24 07:30 Diagnostic Test (Pha) 1 strip ACHS 09/14/24 11:30 Insulin Human Regular ACHS SC 09/14/24 11:30 Dextrose 50 ml UD PRN IV 09/14/24 09:45 Examination: GENERAL:Normal, HEENT:Normal, NECK:Normal, LUNGS:Normal, CVS:Normal, ABDOMEN:Normal, MSK:Normal, MSK:Abnormal (EDEMA, LEFT LEG REDNESS), SKIN:Normal, NEURO:Normal, :Normal laboratory and microbiology Laboratory Tests 09/13/24 20:48 Test 09/13/24 20:48 Range/Units Serum Glucose 105 74-106 mg/dL Problem List/Assessment/Plan Problem List/Assessment/Plan * Acute on chronic diastolic heart failure: lasix iv * hyponatremia: iv lasix * Diabetes mellitus: ssi * Hypertension. * Atrial fibrillation with secondary hypercoagulable state: eliquis * Morbid obesity. * Chronic kidney disease, stage III. * left leg cellulitis: iv ancef advance care planning- full code- time spent 19 mins Plan discussed with: Patient My Orders My Orders Orders - CHARLIE TOBIN MD Procedure Category Date Status Time Cefazolin Ancef PHA 09/14/24 Transmitted 11:45 Cefazolin Ancef PHA 09/14/24 Transmitted 14:00 Bilat Lower Dvt US 09/14/24 Logged 11:33 Urine Bacterial TONYA 09/14/24 Logged Culture 11:33 Furosemide Injection PHA 09/14/24 Transmitted (Lasix Injection) 11:45 Furosemide Injection PHA 09/15/24 Transmitted (Lasix Injection) 10:00 Basic Metabolic Panel LAB 09/15/24 Verified 06:00 Magnesium LAB 09/15/24 Verified 05:00 Apixaban (Eliquis) PHA 09/14/24 Verified 22:00 Date of Service: Sep 14, 2024 Billing Provider: CHARLIE TOBIN MD Common Visit Codes: [id number] INP/OBS CARE(HIGH) Secondary Visit Codes: [id number] CARE PLAN 30 MINUTES CHARLIE TOBIN MD Sep 14, 2024 11:39
[2024-09-14] MEDS: ACCU-CHEK COMFORT CURVE STRIP VI SCH (11:56)
--- NOTE | 2024-09-14 12:20 | DVH ---
US BiLat Lower DVT HISTORY: DVT COMPARISON: None TECHNIQUE: Duplex Doppler evaluation of the deep venous system of the lower extremity from the common femoral veins, superficial femoral vein, great saphenous vein, deep femoral vein, popliteal vein, an d calf veins, including color Doppler and spectral/pulsed waveform analysis, was performed. FINDINGS: Right: - Common femoral vein: Compressible - Deep femoral vein: Compressible - Femoral vein: Compressible - Popliteal vein: Compressible - Posterior tibial vein: Waveforms present - Other: Nothing Left: - Common femoral vein: Compressible - Deep femoral vein: Compressible - Femoral vein: Compressible - Popliteal vein: Compressible - Posterior tibial vein: Waveforms present - Other: Nothing IMPRESSION: No right or left lower extremity deep venous thrombosis.
[2024-09-14 12:23] VITALS: PULSE 68; RESP 14; O2SAT 95
[2024-09-14] MEDS: FUROSEMIDE 20 MG/2 ML VIAL IV ONE (12:30)
[2024-09-14] MEDS: ceFAZolin 1GM/50ML 50 ML IV ONE (12:34)
[2024-09-14] MEDS: SODIUM CHLORIDE 0.9% 1,000 ML IV ONE (13:16)
[2024-09-14] MEDS ORDERED: APIX5TAB PO (14:40)
[2024-09-14] MEDS: SODIUM CHLORIDE 0.9% 250 ML IV ONE (16:30)
--- NOTE | 2024-09-14 18:47 | DVHINCON2 ---
Date of service: Sep 14, 2024 History of Present Illness HPI Patient is a 79-year-old female who presented to the hospital with generalized weakness mostly in the legs. She mentions that she felt like the time that she was told she had low sodium and was seen in urgent care and also legs time was seen in [facility] for the same. Patient is found to have hyponatremia. She is also found to have atrial fibrillation and cardiology was involved. Patient is known to our practice from before and outside. Patient does have history of atrial fibrillation for which has had twice ablation done. She is on chronic anticoagulation (Eliquis). Denies chest pains. Denies shortness of breath. Denies palpitations. Denies loss of consciousness. Home Meds Reported Medications Apixaban Base (ELIQUIS) 5 Mg Tab, 1 TAB PO BID 09/14/24 Atorvastatin Calcium (ATORVASTATIN CALCIUM) 20 Mg Tab, 1 TAB PO HS 07/07/24 Diltiazem Hcl (Dilt-Xr) 120 Mg Cap, 1 TAB PO DAILY 07/07/24 Fenofibrate (Fenofibrate) 160 Mg Tab, 1 TAB PO DAILY 07/07/24 Hydralazine Hcl (Hydralazine Hcl) 50 Mg Tab, 1 TAB PO BID 07/07/24 Benazepril Hcl (Benazepril Hcl) 20 Mg Tab, 1 TAB PO BID 07/07/24 Metoprolol Tartrate (Lopressor) 25 Mg Tb, 3 TAB PO BID 07/07/24 Metformin Hydrochloride (Metformin Hcl) 1,000 Mg Tab, 500 MG PO BID 07/07/24 Past Medical History Others Past medical history includes: Morbid obesity, diabetes mellitus, hypertension, hyperlipidemia, chronic atrial fibrillation, status post repeated atrial fibrillation (ppi) ablation, the on chronic anticoagulation, pulmonary fibrosis, pulmonary hypertension, anemia, GERD, CKD, anxiety disorder, peripheral artery disease, thyroid nodule, history of Toussaint's cyst in lower extremity and old history of hysterectomy. Does have Krause catheter. Family History: No pertinent Hx Patient Family History: FHx: heart disease G8 MOTHER, , Age: 60 years and older G8 FATHER, , Age: 60 years and older Smoker: No Hx (Negative) Alocohol: None Drugs: None Review of Systems All Other Systems 14 point review of system was performed. Relevant findings as per above and as per HPI. Otherwise negative. H&P Exam Vital Signs Vital Signs Date Time Temp Pulse Resp B/P (MAP) Pulse Ox O2 Delivery O2 Flow Rate FiO2 09/14/24 16:00 98.6 77 16 87/27 (47) 98 98.6 09/14/24 12:23 Room Air* 0 21 General Appeara: Well developed, Obese Head Exam: Normal inspection Neck Exam: Normal inspection Eye Exam: bilateral eye PERRL Pulmonary/Respiratory: Rhonci Cardiovascular/Chest: Systolic murmur, Irregularly irregular Peripheral Pulses: 2+ carotid (R), 2+ carotid (L), 2+ femoral (R), 2+ femoral (L), 2+ Radial (R), 2+ Radial (L) Abdominal Exam: Normal bowel sounds, Soft Neuro/Mental St: Alert, Oriented Appearance: Appropriate appearance Eye contact/ Speech: Cooperative Labs/Xrays Labs Test 09/14/24 16:41 09/14/24 07:19 09/13/24 21:18 09/13/24 20:48 Range/Units POC Glucose 108 H 70-106 mg/dl Troponin I High Sensitivity 116 *H </=34 ng/L Influenza Type A Antigen Negative Negative Influenza Type B Antigen Negative Negative SARS-CoV-2 Antigen (Rapid) Negative NEGATIVE White Blood Count 6.0 4.4-10.8 10^3/uL Red Blood Count 3.51 L 4.0-5.20 10^6/uL Hemoglobin 10.7 L 12.2-16.2 g/dL Hematocrit 31.8 L 36.0-46.0 % Mean Corpuscular Volume 90.6 80.0-100.0 fL Mean Corpuscular Hemoglobin 30.5 28.0-32.0 pg Mean Corpuscular Hemoglobin Concent 33.6 32.0-36.0 g/dL Red Cell Distribution Width 14.1 11.8-14.3 % Platelet Count 218 140-450 10^3/uL Mean Platelet Volume 7.5 6.9-10.8 fL Neutrophils (%) (Auto) 81.0 H 37.0-80.0 % Lymphocytes (%) (Auto) 10.2 10.0-50.0 % Monocytes (%) (Auto) 8.5 0.0-12.0 % Eosinophils (%) (Auto) 0.1 0.0-7.0 % Basophils (%) (Auto) 0.2 0.0-2.0 % Neutrophils # (Auto) 4.8 1.6-8.6 10 ^3/uL Lymphocytes # (Auto) 0.6 0.4-5.4 10 ^3/uL Monocytes # (Auto) 0.5 0-1.3 10 ^3/uL Eosinophils # (Auto) 0 0-0.8 10 ^3/uL Basophils # (Auto) 0 0-0.2 10 ^3/uL Nucleated Red Blood Cells 0.1 % Prothrombin Time 12.8 H 9.3-11.8 sec Prothrombin Time INR 1.23 H 0.9-1.15 Sodium Level 121 L 136-145 mmol/L Potassium Level 3.6 3.5-5.1 mmol/L Chloride Level 89 L 98-107 mmol/L Carbon Dioxide Level 24 20-31 mmol/L Anion Gap 8 5-15 Blood Urea Nitrogen 23 9-23 mg/dL Creatinine 1.22 H 0.550-1.02 mg/dL Glomerular Filtration Rate Calc 46 >90 mL/min BUN/Creatinine Ratio 18.9 10.0-20.0 Serum Glucose 105 74-106 mg/dL Lactic Acid Level 0.7 0.4-2.0 mmol/L Calcium Level 9.9 8.7-10.4 mg/dL Total Bilirubin 0.6 0.2-1.0 mg/dL Aspartate Amino Transferase (AST) 29 13-40 U/L Alanine Aminotransferase (ALT) 17 7-40 U/L Alkaline Phosphatase 52 46-116 U/L B-Type Natriuretic Peptide 227.63 0-100 pg/mL Total Protein 6.0 5.7-8.2 g/dL Albumin 3.7 3.2-4.8 g/dL Plasma/Serum Blood Alcohol < 3.0 <10 mg/dL Test 09/13/24 20:40 Range/Units Urine Color Colorless Yellow Urine Clarity Turbid H Clear Urine pH 6.0 5.0-9.0 Urine Specific [place] 1.004 1.001-1.035 Urine Protein 1+ H Negative Urine Ketones Negative Negative Urine Blood Negative Negative /uL Urine Nitrite Negative Negative Urine Bilirubin Negative Negative Urine Urobilinogen Normal Negative mg/dL Urine Leukocyte Esterase 3+ Negative /uL Urine RBC 2 0 - 4 /hpf Urine Microscopic WBC 41 H 0-5 /HPF Urine Squamous Epithelial Cells Few <5 /hpf Urine Bacteria Mod H None Seen /hpf Urine Sodium 15 L 40-220 mmol/L Urine Glucose Normal Normal mg/dL Urine Opiates Screen Neg NEGATIVE Urine Fentanyl Screen Neg NEGATIVE Urine Barbiturates Screen Neg NEGATIVE Urine Phencyclidine Screen Neg NEGATIVE Urine Amphetamines Screen Neg NEGATIVE Urine Benzodiazepines Screen Neg NEGATIVE Urine Cocaine Screen Neg NEGATIVE Urine Cannabinoids Screen Neg NEGATIVE Assessment/Plan Plan Patient is a 79-year-old female who presented to the hospital with generalized weakness mostly in the legs. She mentions that she felt like the time that she was told she had low sodium and was seen in urgent care and also legs time was seen in [facility] for the same. Patient is found to have hyponatremia. She is also found to have atrial fibrillation and cardiology was involved. Patient is known to our practice from before and outside. Patient does have history of atrial fibrillation for which has had twice ablation done. She is on chronic anticoagulation (Eliquis). Denies chest pains. Denies shortness of breath. Denies palpitations. Denies loss of consciousness. Obese female, not in acute distress. Lying flat in bed. No JVD. Mucosa is pink and wet. No carotid bruit. Lungs are clear to auscultation. Cardiac: Irregular, systolic murmur 2/6 in apex is heard. Abdomen is obese and distended. Bowel sound is positive. There is no tenderness. No hepatomegaly. Dorsalis pedis is 2+ bilateral. Left-sided lower extremity edema is observed. Past medical history includes: Morbid obesity, diabetes mellitus, hypertension, hyperlipidemia, chronic atrial fibrillation, status post repeated atrial fibrillation (ppi) ablation, the on chronic anticoagulation, pulmonary fibrosis, pulmonary hypertension, anemia, GERD, CKD, anxiety disorder, peripheral artery disease, thyroid nodule, history of Toussaint's cyst in lower extremity and old history of hysterectomy. Does have Krause catheter. Echocardiogram of July 07, 2024 revealed ejection fraction of 55%, biatrial enlargement and enlarged right ventricle Hemoglobin: 10.7 Creatinine: 1.22 Potassium: 3.6 Sodium: 121 Troponin (high sensitive): 125 - 121 - 116 BNP: 227.63 Urine analysis was positive for WBCs/it was turbid Urine toxicology was nonrevealing Chest x-ray revealed: IMPRESSION: Mild cardiomegaly and mild pulmonary vascular congestion. No significant change compared to the prior chest x-ray from 07/12/24. Venous Doppler of lower extremities revealed: IMPRESSION: No right or left lower extremity deep venous thrombosis. EKG revealed atrial fibrillation with moderate ventricular response, IVCD and old inferior OH Tele reveals atrial fibrillation with moderate ventricular response Patient is a 79-year-old female who presented with generalized weakness and is found to have hyponatremia. Does have baseline history of atrial fibrillation and the rate is controlled. Is found to have minimally elevated/flat troponin. Acute coronary syndrome is not considered at this point. Abnormal troponin most likely reflects demand physiology in a patient with possible pulmonary hypertension/diastolic heart failure. UTI could have contributed to the clinical picture itself. Hyponatremia ERNESTO on CKD Abnormal troponin UTI Diastolic heart failure Atrial fibrillation, moderate ventricular response Anemia, chronic Morbid obesity Hyperlipidemia Pulmonary hypertension/pulmonary fibrosis, history Cellulitis of left lower extremities? Cardiac suggestion for management: Manage on telemetry Follow-up electrolytes and kidney function tests and correct abnormalities Request for D-dimer, if abnormal request for CT angio of the lungs Request for Echocardiogram Long-term continuation of anticoagulation is advised (patient on Eliquis as outpatient) Evaluation and management of hyponatremia as per primary team. Consider Nephrology evaluation Further evaluation and management depends on the above and clinical course Thank you for consultation A total of 75 minutes was spent reviewing the patient record, examining the patient, making a diagnostic and therapeutic plan, discussing this plan with medical personnel, following up on diagnostic studies and following the patient for clinical stability excluding any and all procedures. At least 50% of this time was spent in direct, [id number] contact. Thank you for allowing me to participate in this patient's care. Further recommendations will depend on patient's clinical course. Please do not hesitate to contact me if you have any questions or concerns. This medical document was created using electronic medical record system with [employer] computerized dictation system. Although this document has been carefully reviewed, there may still be some phonetic and typographical errors. These areas are purely typographical due to the imperfection of the software programs, and do not reflect any compromise in the patient's medical care. , Plan discussed with: Patient, Other (nurse) FRENCH ARVIZU MD Sep 14, 2024 18:47
[2024-09-14 19:52] VITALS: PULSE 83; RESP 17; O2SAT 97
[2024-09-14] MEDS: APIXABAN 5 MG TAB PO SCH (22:37)
[2024-09-14] MEDS: METOPROLOL TARTRATE 25 MG TAB PO SCH (22:38)
[2024-09-14] MEDS: ceFAZolin 1GM/50ML 50 ML IV SCH (22:39)
[2024-09-14] MEDS: ATORVASTATIN 20 MG TAB PO SCH (22:39)
[2024-09-14] MEDS: BENAZEPRIL HCL 10 MG TAB PO SCH (22:39)
[2024-09-14] MEDS: hydrALAZINE HCL 25 MG TAB PO SCH (22:39)
[2024-09-15] VITALS (9 sets, daily range): BP systolic 119–142; BP diastolic 56–72; PULSE 62–85; RESP 15–18; TEMP 97.5–98; O2SAT 95–99
[2024-09-15] MEDS ORDERED: ASCO500T11 GT (03:10)
[2024-09-15] MEDS ORDERED: CHOL200031 PO (03:10)
[2024-09-15] MEDS ORDERED: MAGN400T40 PO (03:10)
[2024-09-15] MEDS ORDERED: OMEG100062 PO (03:10)
[2024-09-15] MEDS ORDERED: ASCO500T11 PO (03:10)
[2024-09-15 06:15] LABS: Basophils # (auto) 0 10 ^3/uL (0-0.2); Basophils % (auto) 0.3 % (0.0-2.0); Eosinophils # (auto) 0 10 ^3/uL (0-0.8); Eosinophils % (auto) 0.4 % (0.0-7.0); Hematocrit 28.4 % (36.0-46.0); Hemoglobin 9.8 g/dL (12.2-16.2); Lymphocytes # (auto) 0.4 10 ^3/uL (0.4-5.4); Lymphocytes % (auto) 9.2 % (10.0-50.0); Mean Corpuscular Hemoglobin 31.4 pg (28.0-32.0); Mean Corpuscular Hgb Conc. 34.4 g/dL (32.0-36.0); Mean Corpuscular Volume 91.4 fL (80.0-100.0); Monocytes # (auto) 0.4 10 ^3/uL (0-1.3); Monocytes % (auto) 8.5 % (0.0-12.0); Neutrophils # (auto) 3.9 10 ^3/uL (1.6-8.6); Neutrophils % (auto) 81.6 % (37.0-80.0); Nucleated Red Blood Cells % 0.1 %; Platelet Count (auto) 203 10^3/uL (140-450); Red Blood Cells 3.11 10^6/uL (4.0-5.20); Red Cell Distribution Width 14.1 % (11.8-14.3); White Blood Cell 4.8 10^3/uL (4.4-10.8)
[2024-09-15 06:33] LABS: Alanine Aminotransferase 17 U/L (7-40); Anion Gap 9 (5-15); BUN/Creatinine Ratio 16.1 (10.0-20.0); Blood Urea Nitrogen 19 mg/dL (9-23); Calcium 9.4 mg/dL (8.7-10.4); Carbon Dioxide 23 mmol/L (20-31); Chloride 99 mmol/L (98-107); Glucose 83 mg/dL (74-106)
[2024-09-15 06:34] LABS: Albumin 3.2 g/dL (3.2-4.8); Alkaline Phosphatase 39 U/L (46-116); Aspartate Aminotransferase 33 U/L (13-40); Bilirubin, Total 0.4 mg/dL (0.2-1.0); Magnesium 1.5 mg/dL (1.6-2.6); Potassium 3.2 mmol/L (3.5-5.1); Sodium 131 mmol/L (136-145); Total Protein 5.3 g/dL (5.7-8.2)
--- NOTE | 2024-09-15 07:09 | DVHPN2 ---
Progress Note - Dictate Date Seen: Sep 15, 2024 Medical Necessity Reason Pt with a Central, PICC or Fol: No vital signs Vital Sign Date Time Temp Pulse Resp B/P (MAP) Pulse Ox O2 Delivery O2 Flow Rate FiO2 09/15/24 05:00 97.8 73 15 126/69 (88) 96 97.8 09/15/24 02:44 Room Air* 0 21 Total Intake and Output 09/14/24 09/14/24 09/15/24 15:00 23:00 07:00 Intake Total 1200 ml 500 ml 100 ml Output Total 800 ml 1400 ml 650 ml Balance 400 ml -900 ml -550 ml medications Current Medications Medications Dose Ordered Sig/Nicholas Route Start Time Stop Time Status Last Admin Dose Admin Acetaminophen/ Hydrocodone Bitart 1 tab Q4HP PRN PO 09/14/24 07:30 Ondansetron HCl 4 mg Q4HP PRN IV 09/14/24 07:30 Acetaminophen 650 mg Q6HP PRN PO 09/14/24 07:30 Diagnostic Test (Pha) 1 strip ACHS 09/14/24 11:30 09/15/24 06:08 1 STRIP Insulin Human Regular ACHS SC 09/14/24 11:30 Dextrose 50 ml UD PRN IV 09/14/24 09:45 Cefazolin Sodium 50 ml @ 100 mls/hr Q8HR IV 09/14/24 22:00 09/15/24 06:06 100 MLS/HR Furosemide 20 mg DAILY IV 09/15/24 10:00 Apixaban 5 mg BID PO 09/14/24 22:00 09/14/24 22:37 5 MG Atorvastatin Calcium 20 mg HS PO 09/14/24 22:00 09/14/24 22:39 20 MG Diltiazem HCl 120 mg DAILY PO 09/15/24 10:00 Metoprolol Tartrate 75 mg BID PO 09/14/24 22:00 09/14/24 22:38 75 MG Benazepril HCl 20 mg BID PO 09/14/24 22:00 Patient Own Medication 1 tab DAILY PO 09/15/24 10:00 Hydralazine HCl 50 mg BID PO 09/14/24 22:00 Pantoprazole Sodium 40 mg DAILY IV 09/15/24 10:00 laboratory and microbiology Laboratory Tests 09/15/24 04:44 Test 09/15/24 04:44 Range/Units Serum Glucose 83 74-106 mg/dL Assessment/Plan Patient is a 79-year-old female who presented to the hospital with generalized weakness mostly in the legs. She mentions that she felt like the time that she was told she had low sodium and was seen in urgent care and also legs time was seen in [facility] for the same. Patient is found to have hyponatremia. She is also found to have atrial fibrillation and cardiology was involved. Patient is known to our practice from before and outside. Patient does have history of atrial fibrillation for which has had twice ablation done. She is on chronic anticoagulation (Eliquis). Denies chest pains. Denies shortness of breath. Denies palpitations. Denies loss of consciousness. Obese female, not in acute distress. Lying flat in bed. No JVD. Mucosa is pink and wet. No carotid bruit. Lungs are clear to auscultation. Cardiac: Irregular, systolic murmur 2/6 in apex is heard. Abdomen is obese and distended. Bowel sound is positive. There is no tenderness. No hepatomegaly. Dorsalis pedis is 2+ bilateral. Left-sided lower extremity edema is observed. Past medical history includes: Morbid obesity, diabetes mellitus, hypertension, hyperlipidemia, chronic atrial fibrillation, status post repeated atrial fibrillation (ppi) ablation, the on chronic anticoagulation, pulmonary fibrosis, pulmonary hypertension, anemia, GERD, CKD, anxiety disorder, peripheral artery disease, thyroid nodule, history of Toussaint's cyst in lower extremity and old history of hysterectomy. Does have Krause catheter. Echocardiogram of July 07, 2024 revealed ejection fraction of 55%, biatrial enlargement and enlarged right ventricle Hemoglobin: 10.7 - 9.8 Creatinine: 1.22 - 1.18 Potassium: 3.6 - 3.2 Sodium: 121 - 131 Troponin (high sensitive): 125 - 121 - 116 BNP: 227.63 TSH: 1.81 D-Dimer: 0.23 Urine analysis was positive for WBCs/it was turbid Urine toxicology was nonrevealing Chest x-ray revealed: IMPRESSION: Mild cardiomegaly and mild pulmonary vascular congestion. No significant change compared to the prior chest x-ray from 07/12/24. Venous Doppler of lower extremities revealed: IMPRESSION: No right or left lower extremity deep venous thrombosis. EKG revealed atrial fibrillation with moderate ventricular response, IVCD and old inferior AK Tele reveals atrial fibrillation with moderate ventricular response Patient is a 79-year-old female who presented with generalized weakness and is found to have hyponatremia. Does have baseline history of atrial fibrillation and the rate is controlled. Is found to have minimally elevated/flat troponin. Acute coronary syndrome is not considered at this point. Abnormal troponin most likely reflects demand physiology in a patient with possible pulmonary hypertension/diastolic heart failure. UTI could have contributed to the clinical picture itself. Hyponatremia ERNESTO on CKD Abnormal troponin UTI Diastolic heart failure Atrial fibrillation, moderate ventricular response Anemia, chronic Morbid obesity Hyperlipidemia Pulmonary hypertension/pulmonary fibrosis, history Cellulitis of left lower extremities? Cardiac suggestion for management: Manage on telemetry Follow-up electrolytes and kidney function tests and correct abnormalities Awaiting Echocardiogram Long-term continuation of anticoagulation is advised (on Eliquis) Evaluation and management of hyponatremia as per primary team. Consider Nephrology evaluation Further evaluation and management depends on the above and clinical course A total of 55 minutes was spent reviewing the patient record, examining the patient, making a diagnostic and therapeutic plan, discussing this plan with medical personnel, following up on diagnostic studies and following the patient for clinical stability excluding any and all procedures. At least 50% of this time was spent in direct, [id number] contact. Thank you for allowing me to participate in this patient's care. Further recommendations will depend on patient's clinical course. Please do not hesitate to contact me if you have any questions or concerns. This medical document was created using electronic medical record system with [employer] computerized dictation system. Although this document has been carefully reviewed, there may still be some phonetic and typographical errors. These areas are purely typographical due to the imperfection of the software programs, and do not reflect any compromise in the patient's medical care. Plan discussed with: Patient, Other (nurse) FRENCH ARVIZU MD Sep 15, 2024 07:09
[2024-09-15] MEDS ORDERED: POTASSIUM CHL 20MEQ/100ML 100 ML IV SCH (09:30)
--- NOTE | 2024-09-15 09:38 | DVHINCON2 ---
Date of service: Sep 15, [address] Willams Reason for Consultation Acute kidney injury, hypo natremia History of Present Illness Patient is a 79-year-old obese female with past medical history significant for hypertension Congestive heart failure and AFib who is admitted for generalized weakness found to have hyponatremia and elevated BUN creatinine nephrology is consulted Past Medical History Congestive heart failure AFib Hyponatremia Hypertension Past Surgical History Hysterectomy Allergies: Coded Allergies: NO KNOWN ALLERGIES (Unverified , 07/06/24) Home Meds Reported Medications Ascorbic Acid (VITAMIN C TABLET) 500 Mg Tb, 500 MG GT, TAB 09/15/24 Ascorbic Acid (VITAMIN C TABLET) 500 Mg Tb, 2 TAB PO DAILY, #30 TAB 3 Refills 09/15/24 Cholecalciferol (D3) 2,000 Unit Cap, 2000 UNIT PO, CAP 09/15/24 [place]-3 Fatty Acids (Fish Oil) 1,000 Mg Cap, 1000 MG PO, CAP 09/15/24 Magnesium Oxide (MAGNESIUM OXIDE) 400 Mg Tab, 250 MG PO, TAB 09/15/24 Apixaban Base (ELIQUIS) 5 Mg Tab, 1 TAB PO BID 09/14/24 Atorvastatin Calcium (ATORVASTATIN CALCIUM) 20 Mg Tab, 1 TAB PO HS 07/07/24 Diltiazem Hcl (Dilt-Xr) 120 Mg Cap, 1 TAB PO DAILY 07/07/24 Fenofibrate (Fenofibrate) 160 Mg Tab, 1 TAB PO DAILY 07/07/24 Hydralazine Hcl (Hydralazine Hcl) 50 Mg Tab, 1 TAB PO BID 07/07/24 Benazepril Hcl (Benazepril Hcl) 20 Mg Tab, 1 TAB PO BID 07/07/24 Metoprolol Tartrate (Lopressor) 25 Mg Tb, 3 TAB PO BID 07/07/24 Metformin Hydrochloride (Metformin Hcl) 1,000 Mg Tab, 500 MG PO BID 07/07/24 Current Medications Current Medications Medications (Trade) Dose Ordered Sig/Nicholas Route PRN Reason Start Time Stop Time Status Last Admin Cefazolin Sodium 50 ml @ 100 mls/hr Q8HR IV 09/14/24 22:00 09/15/24 14:10 Furosemide (Lasix Injection) 20 mg DAILY IV 09/15/24 10:00 09/15/24 11:29 DC 09/15/24 11:10 Apixaban (Eliquis) 5 mg BID PO 09/14/24 22:00 09/15/24 11:09 Atorvastatin Calcium (Lipitor) 20 mg HS PO 09/14/24 22:00 09/14/24 22:39 Diltiazem HCl (Cardizem ER Capsule) 120 mg DAILY PO 09/15/24 10:00 09/15/24 11:08 Metoprolol Tartrate (Lopressor Tablet) 75 mg BID PO 09/14/24 22:00 09/15/24 11:07 Benazepril HCl (Lotensin Tablet) 20 mg BID PO 09/14/24 22:00 09/15/24 11:07 Patient Own Medication 1 tab DAILY PO 09/15/24 10:00 09/15/24 11:29 DC Hydralazine HCl (Apresoline Tablet) 50 mg BID PO 09/14/24 22:00 09/15/24 11:08 Pantoprazole Sodium (Protonix) 40 mg DAILY IV 09/15/24 10:00 09/15/24 11:29 DC 09/15/24 11:09 Potassium Chloride 100 ml @ 50 mls/hr Q2H IV 09/15/24 09:30 09/15/24 13:29 Cancel Magnesium Sulfate/ Dextrose 100 ml @ 100 mls/hr Q1HR IV 09/15/24 10:00 09/15/24 11:59 DC 09/15/24 12:28 Potassium Chloride 50 ml @ 25 mls/hr Q2H IV 09/15/24 11:00 09/15/24 15:15 DC Pantoprazole Sodium (Protonix Tablet) 40 mg DAILY@0600 PO 09/16/24 06:00 Sodium Chloride 50 ml @ 25 mls/hr Q2H IV 09/15/24 11:45 09/15/24 15:44 Family History: Cervical cancer 19 CHILD FHx: heart disease G8 MOTHER, , Age: 60 years and older G8 FATHER, , Age: 60 years and older Review of Systems All 12 item review of systems reviewed with the patient nonsignificant except what is mentioned in the history of present H&P Exam Vital Signs/I&O Vital Sign Date Time Temp Pulse Resp B/P (MAP) Pulse Ox O2 Delivery O2 Flow Rate FiO2 09/15/24 13:00 97.7 67 17 137/69 (91) 96 97.7 09/15/24 02:44 Room Air* 0 21 Intake and Output 09/14/24 09/15/24 19:00 07:00 Intake Total 1700 ml 100 ml Output Total 1800 ml 1050 ml Balance -100 ml -950 ml Intake Oral 100 ml IV Total 1700 ml Output Urine Total 1800 ml 1050 ml Physical Exam Obese female lying comfortably in bed Lungs clear to auscultation bilaterally Cardiac exam regular rate and rhythm GI obese nontender Krause catheter Extremity 1+ edema Neuro patient is awake and alert Labs/Diagnostic Data Labs/Diagnostic Data Laboratory Tests Test 09/15/24 10:43 09/15/24 05:52 09/15/24 04:44 09/14/24 22:24 Range/Units Phosphorus Level 2.3 L 2.4-5.1 mg/dL Magnesium Level 1.4 L 1.5 L 1.6-2.6 mg/dL Vitamin D 25-Hydroxy 28.6 L 30.0-100 ng/mL Parathyroid Hormone (Intact) 73.4 18.4-80.1 pg/mL POC Glucose 95 99 70-106 mg/dl White Blood Count 4.8 4.4-10.8 10^3/uL Red Blood Count 3.11 L 4.0-5.20 10^6/uL Hemoglobin 9.8 L 12.2-16.2 g/dL Hematocrit 28.4 #L 36.0-46.0 % Mean Corpuscular Volume 91.4 80.0-100.0 fL Mean Corpuscular Hemoglobin 31.4 28.0-32.0 pg Mean Corpuscular Hemoglobin Concent 34.4 32.0-36.0 g/dL Red Cell Distribution Width 14.1 11.8-14.3 % Platelet Count 203 140-450 10^3/uL Mean Platelet Volume 7.8 6.9-10.8 fL Neutrophils (%) (Auto) 81.6 H 37.0-80.0 % Lymphocytes (%) (Auto) 9.2 L 10.0-50.0 % Monocytes (%) (Auto) 8.5 0.0-12.0 % Eosinophils (%) (Auto) 0.4 0.0-7.0 % Basophils (%) (Auto) 0.3 0.0-2.0 % Neutrophils # (Auto) 3.9 1.6-8.6 10 ^3/uL Lymphocytes # (Auto) 0.4 0.4-5.4 10 ^3/uL Monocytes # (Auto) 0.4 0-1.3 10 ^3/uL Eosinophils # (Auto) 0 0-0.8 10 ^3/uL Basophils # (Auto) 0 0-0.2 10 ^3/uL Nucleated Red Blood Cells 0.1 % Sodium Level 131 #L 136-145 mmol/L Potassium Level 3.2 L 3.5-5.1 mmol/L Chloride Level 99 # 98-107 mmol/L Carbon Dioxide Level 23 20-31 mmol/L Anion Gap 9 5-15 Blood Urea Nitrogen 19 9-23 mg/dL Creatinine 1.18 H 0.550-1.02 mg/dL Glomerular Filtration Rate Calc 48 >90 mL/min BUN/Creatinine Ratio 16.1 10.0-20.0 Serum Glucose 83 74-106 mg/dL Calcium Level 9.4 8.7-10.4 mg/dL Total Bilirubin 0.4 0.2-1.0 mg/dL Aspartate Amino Transferase (AST) 33 13-40 U/L Alanine Aminotransferase (ALT) 17 7-40 U/L Alkaline Phosphatase 39 L 46-116 U/L Total Protein 5.3 L 5.7-8.2 g/dL Albumin 3.2 3.2-4.8 g/dL Test 09/14/24 18:45 09/14/24 16:41 09/14/24 11:46 09/14/24 07:19 Range/Units D-Dimer, Quantitative 0.23 0.0-0.49 mg/L FEU POC Glucose 108 H 99 70-106 mg/dl Troponin I High Sensitivity 116 *H </=34 ng/L Thyroid Stimulating Hormone (TSH) 1.81 0.55-4.78 uIU/mL Test 09/14/24 03:57 09/13/24 21:24 09/13/24 21:18 09/13/24 20:48 Range/Units Troponin I High Sensitivity 121 *H 125 *H </=34 ng/L POC Glucose 99 70-106 mg/dl Influenza Type A Antigen Negative Negative Influenza Type B Antigen Negative Negative SARS-CoV-2 Antigen (Rapid) Negative NEGATIVE White Blood Count 6.0 4.4-10.8 10^3/uL Red Blood Count 3.51 L 4.0-5.20 10^6/uL Hemoglobin 10.7 L 12.2-16.2 g/dL Hematocrit 31.8 L 36.0-46.0 % Mean Corpuscular Volume 90.6 80.0-100.0 fL Mean Corpuscular Hemoglobin 30.5 28.0-32.0 pg Mean Corpuscular Hemoglobin Concent 33.6 32.0-36.0 g/dL Red Cell Distribution Width 14.1 11.8-14.3 % Platelet Count 218 140-450 10^3/uL Mean Platelet Volume 7.5 6.9-10.8 fL Neutrophils (%) (Auto) 81.0 H 37.0-80.0 % Lymphocytes (%) (Auto) 10.2 10.0-50.0 % Monocytes (%) (Auto) 8.5 0.0-12.0 % Eosinophils (%) (Auto) 0.1 0.0-7.0 % Basophils (%) (Auto) 0.2 0.0-2.0 % Neutrophils # (Auto) 4.8 1.6-8.6 10 ^3/uL Lymphocytes # (Auto) 0.6 0.4-5.4 10 ^3/uL Monocytes # (Auto) 0.5 0-1.3 10 ^3/uL Eosinophils # (Auto) 0 0-0.8 10 ^3/uL Basophils # (Auto) 0 0-0.2 10 ^3/uL Nucleated Red Blood Cells 0.1 % Prothrombin Time 12.8 H 9.3-11.8 sec Prothrombin Time INR 1.23 H 0.9-1.15 Sodium Level 121 L 136-145 mmol/L Potassium Level 3.6 3.5-5.1 mmol/L Chloride Level 89 L 98-107 mmol/L Carbon Dioxide Level 24 20-31 mmol/L Anion Gap 8 5-15 Blood Urea Nitrogen 23 9-23 mg/dL Creatinine 1.22 H 0.550-1.02 mg/dL Glomerular Filtration Rate Calc 46 >90 mL/min BUN/Creatinine Ratio 18.9 10.0-20.0 Serum Glucose 105 74-106 mg/dL Lactic Acid Level 0.7 0.4-2.0 mmol/L Calcium Level 9.9 8.7-10.4 mg/dL Total Bilirubin 0.6 0.2-1.0 mg/dL Aspartate Amino Transferase (AST) 29 13-40 U/L Alanine Aminotransferase (ALT) 17 7-40 U/L Alkaline Phosphatase 52 46-116 U/L B-Type Natriuretic Peptide 227.63 0-100 pg/mL Total Protein 6.0 5.7-8.2 g/dL Albumin 3.7 3.2-4.8 g/dL Plasma/Serum Blood Alcohol < 3.0 <10 mg/dL Test 09/13/24 20:40 Range/Units Urine Color Colorless Yellow Urine Clarity Turbid H Clear Urine pH 6.0 5.0-9.0 Urine Specific [place] 1.004 1.001-1.035 Urine Protein 1+ H Negative Urine Ketones Negative Negative Urine Blood Negative Negative /uL Urine Nitrite Negative Negative Urine Bilirubin Negative Negative Urine Urobilinogen Normal Negative mg/dL Urine Leukocyte Esterase 3+ Negative /uL Urine RBC 2 0 - 4 /hpf Urine Microscopic WBC 41 H 0-5 /HPF Urine Squamous Epithelial Cells Few <5 /hpf Urine Bacteria Mod H None Seen /hpf Urine Sodium 15 L 40-220 mmol/L Urine Glucose Normal Normal mg/dL Urine Opiates Screen Neg NEGATIVE Urine Fentanyl Screen Neg NEGATIVE Urine Barbiturates Screen Neg NEGATIVE Urine Phencyclidine Screen Neg NEGATIVE Urine Amphetamines Screen Neg NEGATIVE Urine Benzodiazepines Screen Neg NEGATIVE Urine Cocaine Screen Neg NEGATIVE Urine Cannabinoids Screen Neg NEGATIVE Assessment Acute kidney injury superimposed Chronic Kidney Disease secondary hemodynamic mediated Chronic diastolic Congestive heart failure NSTEMI Hyponatremia due to excess H2O Hypokalemia due to potassium depletion Hypomagnesemia Atrial fibrillation Anemia of chronic kidney disease Recommendations Closely monitor fluid and electrolytes Avoid nephrotoxic medications Strict I&Os Check urine electrolytes and urine protein excretion Check kidney ultrasound Fluid restrictions KCL replacement Magnesium sulfate 2 g IV piggyback Furosemide 40 mg once daily We will continue to follow Patient seen and examined by myself. I discussed my plan of care with the patient, her sister and primary nurse at the bedside I would like to thank Dr. Willams for the consult, will follow Plan discussed with: Patient ARMEN ESPINOSA MD Sep 15, 2024 09:38
[2024-09-15] MEDS ORDERED: Fenofibrate 160MG TABLET PO SCH (10:00)
--- NOTE | 2024-09-15 10:22 | DVH ---
US KIDNEY HISTORY: tanja COMPARISON: None TECHNIQUE: Transverse and longitudinal grayscale and color Doppler images were obtained of the kidney s and bladder. FINDINGS: Right kidney: Size: 11.2 cm Cortical thickness: Normal Echogenicity: Increased Stones: None Masses: None Hydronephrosis: None Ureters: Not well visualized. Other: None Left kidney: Size: 11.6 cm Cortical thickness: Normal Echogenicity: Increased Stones: None Masses: None Hydronephrosis: None Ureters: Not well visualized. Other: None Bladder: Decompressed with a michele. Other: None. IMPRESSION: Echogenic renal corticies can be seen with medical renal disease. Bilateral small renal cysts measures 1.7 cm on the right and 2.9 cm on the left.
[2024-09-15] MEDS: dilTIAZem 120MG ER CAP PO SCH (11:08)
[2024-09-15] MEDS: PANTOPRAZOLE 40 MG/10 ML VIAL INJ IV SCH (11:09)
[2024-09-15] MEDS: MAGNESIUM SULFATE 1GM/100ML 100 ML IV SCH (11:10)
[2024-09-15] MEDS: FUROSEMIDE 20 MG/2 ML VIAL IV SCH (11:10)
[2024-09-15 11:30] LABS: Magnesium 1.4 mg/dL (1.6-2.6); Phosphorus 2.3 mg/dL (2.4-5.1)
--- NOTE | 2024-09-15 11:30 | DVHPN2 ---
Progress Note Date Seen: Sep 15, 2024 Medical Necessity Reason Pt with a Central, PICC or Fol: No Subjective Patient reports: No new complaints Review of Systems: HEENT:Normal, CVS:Normal, RESPIRATORY:Normal, GI:Normal, :Normal, MSK:Normal, NEURO:Normal Objective vital signs Vital Sign Date Time Temp Pulse Resp B/P (MAP) Pulse Ox O2 Delivery O2 Flow Rate FiO2 09/15/24 11:10 141/68 09/15/24 11:08 74 09/15/24 09:00 97.6 15 96 97.6 09/15/24 02:44 Room Air* 0 21 Total Intake and Output 09/14/24 09/14/24 09/15/24 15:00 23:00 07:00 Intake Total 1200 ml 500 ml 100 ml Output Total 800 ml 1400 ml 650 ml Balance 400 ml -900 ml -550 ml medications Current Medications Medications Dose Ordered Sig/Nicholas Route Start Time Stop Time Status Last Admin Dose Admin Acetaminophen/ Hydrocodone Bitart 1 tab Q4HP PRN PO 09/14/24 07:30 Ondansetron HCl 4 mg Q4HP PRN IV 09/14/24 07:30 Acetaminophen 650 mg Q6HP PRN PO 09/14/24 07:30 Diagnostic Test (Pha) 1 strip ACHS 09/14/24 11:30 09/15/24 06:08 1 STRIP Insulin Human Regular ACHS SC 09/14/24 11:30 Dextrose 50 ml UD PRN IV 09/14/24 09:45 Cefazolin Sodium 50 ml @ 100 mls/hr Q8HR IV 09/14/24 22:00 09/15/24 06:06 100 MLS/HR Furosemide 20 mg DAILY IV 09/15/24 10:00 09/15/24 11:10 20 MG Apixaban 5 mg BID PO 09/14/24 22:00 09/15/24 11:09 5 MG Atorvastatin Calcium 20 mg HS PO 09/14/24 22:00 09/14/24 22:39 20 MG Diltiazem HCl 120 mg DAILY PO 09/15/24 10:00 09/15/24 11:08 120 MG Metoprolol Tartrate 75 mg BID PO 09/14/24 22:00 09/15/24 11:07 75 MG Benazepril HCl 20 mg BID PO 09/14/24 22:00 09/15/24 11:07 20 MG Patient Own Medication 1 tab DAILY PO 09/15/24 10:00 Hydralazine HCl 50 mg BID PO 09/14/24 22:00 09/15/24 11:08 50 MG Pantoprazole Sodium 40 mg DAILY IV 09/15/24 10:00 09/15/24 11:09 40 MG Potassium Chloride 100 ml @ 50 mls/hr Q2H IV 09/15/24 09:30 09/15/24 13:29 Cancel Magnesium Sulfate/ Dextrose 100 ml @ 100 mls/hr Q1HR IV 09/15/24 10:00 09/15/24 11:59 09/15/24 11:10 100 MLS/HR Potassium Chloride 50 ml @ 25 mls/hr Q2H IV 09/15/24 11:00 09/15/24 14:59 Examination: GENERAL:Normal, HEENT:Normal, NECK:Normal, LUNGS:Normal, CVS:Normal, ABDOMEN:Normal, MSK:Normal, SKIN:Normal, NEURO:Normal, :Normal laboratory and microbiology Laboratory Tests 09/15/24 04:44 Test 09/15/24 04:44 Range/Units Serum Glucose 83 74-106 mg/dL Problem List/Assessment/Plan Problem List/Assessment/Plan * Acute on chronic diastolic heart failure: improved * hyponatremia: improved * Diabetes mellitus: ssi * Hypertension: cont meds * Atrial fibrillation with secondary hypercoagulable state: eliquis * Morbid obesity. * Chronic kidney disease, stage III. * left leg cellulitis: iv ancef * uti advance care planning- full code- time spent 19 mins Plan discussed with: Patient My Orders My Orders Orders - CHARLIE TOBIN MD Procedure Category Date Status Time Cefazolin 1gm/50ml PHA 09/14/24 In Process (Ancef) 22:00 Bilat Lower Dvt US 09/14/24 Resulted 11:33 Urine Bacterial TONYA 09/14/24 In Process Culture 11:33 Furosemide Injection PHA 09/15/24 In Process (Lasix Injection) 10:00 Apixaban (Eliquis) PHA 09/14/24 In Process 22:00 * Personal Investment Adviser CONS 09/15/24 Transmitted Consult 03:05 Parathyroid Hormone LAB 09/15/24 Logged Intact 10:57 Pantoprazole Tablet PHA 09/16/24 Verified (Protonix Tablet) 06:00 Potassium Er Tablet PHA 09/15/24 Verified (Klor-Con Tablet) 11:30 Pt Request For Service PT 09/15/24 Verified 11:23 * Personal Investment Adviser CONS 09/15/24 Verified Consult Basic Metabolic Panel LAB 09/16/24 Verified 06:00 Date of Service: Sep 15, 2024 Billing Provider: CHARLIE TOBIN MD Common Visit Codes: [id number] INP/OBS CARE(HIGH) CHARLIE TOBIN MD Sep 15, 2024 11:30
[2024-09-15] MEDS: SODIUM CHL 0.9% 50 ML IV SCH ×2 (11:45→18:26)
[2024-09-15] MEDS: POTASSIUM CHL 20MEQ/50ML 50 ML IV SCH (13:00)
--- NOTE | 2024-09-15 14:05 | DVHSR ---
APPROVED REPORT EXAM: Two-dimensional and M-mode echocardiogram with Doppler and color Doppler. Blood Pressure: 126/69 mmHg INDICATION Cardiac Workup RISK FACTORS Height: 5'4", Weight: 216 DIMENSIONS LVDd5.0 (3.8-5.7cm)LA (2D)5.3 (1.9-4.0cm)Aortic Root3.5 (2.0-3.7cm) LVDs3.8 (2.5-4.0cm)LA (MM) (1.9-4.0cm)Aortic Cusp Exc1.7 (1.5-2.0cm) EF (%) 49.0 (55-70%)Rt. Atrium4.4 (1.9-4.0cm)Asc. Aorta3.6 cm IVSd1.2 (0.7-1.1cm)RV (D)3.7 (1.8-2.4cm) Mitral Valve MitralMitral Stenosis E wave1.11m/sMV Mean GR.mmHg E/A ratio0.02D MVAcm2 Aortic Valve Aortic ValveAortic Stenosis V10.74m/Itzel Mean GR.6mmHg V21.45m/Itzel Peak GR.8mmHg LVOT Diameter2.4 (1.8-2.4cm)Doppler AVA2.31cm2 Pulmonic Valve V20.65m/s Tricuspid Valve TR Velocity2.49m/s [id number] Other Information Quality : Technically LimitedRhythm : Technically limited study due to body habitus. Conclusion lvef 35-40% by visuale stimate moderate LVH noted restrictive LV filling, diastolic dysfunction mild to moderate RV dysfunction notd left atrium enlarged aortic sclerosis noted
[2024-09-15] MEDS: POTASSIUM CHL 20MEQ/50ML 50 ML IV ONE (18:21)
[2024-09-15] MEDS: POTASSIUM CHL 20 Meq TABLET PO ONE (18:23)
[2024-09-16] VITALS (8 sets, daily range): BP systolic 121–136; BP diastolic 56–73; PULSE 62–94; RESP 14–18; TEMP 97.5–97.9; O2SAT 95–99
[2024-09-16] MEDS: PANTOPRAZOLE 40 MG TAB PO SCH (06:18)
[2024-09-16 07:00] LABS: Calcium 10.3 mg/dL (8.7-10.4); Chloride 98 mmol/L (98-107); Potassium 3.6 mmol/L (3.5-5.1)
[2024-09-16 07:01] LABS: Anion Gap 9 (5-15); Carbon Dioxide 24 mmol/L (20-31)
[2024-09-16 07:03] LABS: Sodium 131 mmol/L (136-145)
--- NOTE | 2024-09-16 07:04 | DVHPN2 ---
Progress Note - Dictate Date Seen: Sep 16, 2024 Medical Necessity Reason Pt with a Central, PICC or Fol: No vital signs Vital Sign Date Time Temp Pulse Resp B/P (MAP) Pulse Ox O2 Delivery O2 Flow Rate FiO2 09/16/24 05:00 97.9 71 15 125/65 (85) 96 97.9 09/15/24 20:00 Room Air* 0 21 Total Intake and Output 09/15/24 09/15/24 09/16/24 15:00 23:00 07:00 Intake Total 800 ml 600 ml Output Total 2300 ml 1050 ml Balance -1500 ml -450 ml medications Current Medications Medications Dose Ordered Sig/Nicholas Route Start Time Stop Time Status Last Admin Dose Admin Acetaminophen/ Hydrocodone Bitart 1 tab Q4HP PRN PO 09/14/24 07:30 Ondansetron HCl 4 mg Q4HP PRN IV 09/14/24 07:30 Acetaminophen 650 mg Q6HP PRN PO 09/14/24 07:30 Diagnostic Test (Pha) 1 strip ACHS 09/14/24 11:30 09/16/24 06:26 1 STRIP Insulin Human Regular ACHS SC 09/14/24 11:30 09/15/24 18:26 2 UNITS Dextrose 50 ml UD PRN IV 09/14/24 09:45 Cefazolin Sodium 50 ml @ 100 mls/hr Q8HR IV 09/14/24 22:00 09/16/24 06:19 100 MLS/HR Apixaban 5 mg BID PO 09/14/24 22:00 09/15/24 22:02 5 MG Atorvastatin Calcium 20 mg HS PO 09/14/24 22:00 09/15/24 22:03 20 MG Diltiazem HCl 120 mg DAILY PO 09/15/24 10:00 09/15/24 11:08 120 MG Metoprolol Tartrate 75 mg BID PO 09/14/24 22:00 09/15/24 22:03 75 MG Benazepril HCl 20 mg BID PO 09/14/24 22:00 09/15/24 22:02 20 MG Hydralazine HCl 50 mg BID PO 09/14/24 22:00 09/15/24 22:01 50 MG Potassium Chloride 100 ml @ 50 mls/hr Q2H IV 09/15/24 09:30 09/15/24 13:29 Cancel Pantoprazole Sodium 40 mg DAILY@0600 PO 09/16/24 06:00 09/16/24 06:18 40 MG laboratory and microbiology Laboratory Tests 09/15/24 04:44 Test 09/16/24 05:18 Range/Units Serum Glucose Pending Assessment/Plan Patient is a 79-year-old female who presented to the hospital with generalized weakness mostly in the legs. She mentions that she felt like the time that she was told she had low sodium and was seen in urgent care and also legs time was seen in [facility] for the same. Patient is found to have hyponatremia. She is also found to have atrial fibrillation and cardiology was involved. Patient is known to our practice from before and outside. Patient does have history of atrial fibrillation for which has had twice ablation done. She is on chronic anticoagulation (Eliquis). Denies chest pains. Denies shortness of breath. Denies palpitations. Denies loss of consciousness. Obese female, not in acute distress. Lying flat in bed. No JVD. Mucosa is pink and wet. No carotid bruit. Lungs are clear to auscultation. Cardiac: Irregular, systolic murmur 2/6 in apex is heard. Abdomen is obese and distended. Bowel sound is positive. There is no tenderness. No hepatomegaly. Dorsalis pedis is 2+ bilateral. Left-sided lower extremity edema is observed. 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 Does have Krause catheter. Echocardiogram of July 07, 2024 revealed ejection fraction of 55%, biatrial enlargement and enlarged right ventricle Hemoglobin: 10.7 - 9.8 Creatinine: 1.22 - 1.18 -1.31 Potassium: 3.6 - 3.2 - 3.6 Sodium: 121 - 131 - 131 Troponin (high sensitive): 125 - 121 - 116 BNP: 227.63 TSH: 1.81 D-Dimer: 0.23 Urine analysis was positive for WBCs/it was turbid Urine toxicology was nonrevealing Chest x-ray revealed: IMPRESSION: Mild cardiomegaly and mild pulmonary vascular congestion. No significant change compared to the prior chest x-ray from 07/12/24. Venous Doppler of lower extremities revealed: IMPRESSION: No right or left lower extremity deep venous thrombosis. Renal ultrasound revealed: IMPRESSION: Echogenic renal corticies can be seen with medical renal disease. Bilateral small renal cysts measures 1.7 cm on the right and 2.9 cm on the left. EKG revealed atrial fibrillation with moderate ventricular response, IVCD and old inferior [place] Tele reveals atrial fibrillation with moderate ventricular response Echocardiogram reported: lvef 35-40% by visuale stimate. moderate LVH noted. restrictive LV filling, diastolic dysfunction. mild to moderate RV dysfunction notd. left atrium enlarged aortic sclerosis noted (images reviewed: EF around 50% with diffuse hypokinesis and no local wall motion abnormality) Patient is a 79-year-old female who presented with generalized weakness and is found to have hyponatremia. Does have baseline history of atrial fibrillation and the rate is controlled. Is found to have minimally elevated/flat troponin. Acute coronary syndrome is not considered at this point. Abnormal troponin most likely reflects demand physiology in a patient with possible pulmonary hypertension/ heart failure. UTI could have contributed to the clinical picture itself. Echo reported EF of 35 - 40% (images reviewed: EF around 50% with diffuse hypokinesis and no local wall motion abnormality). 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 Cardiac suggestion for management: Manage on telemetry Follow-up electrolytes and kidney function tests and correct abnormalities Long-term continuation of anticoagulation is advised (on Eliquis) Evaluation and management of hyponatremia as per primary team. Consider Nephrology evaluation Further evaluation and management depends on the above and clinical course A total of 55 minutes was spent reviewing the patient record, examining the patient, making a diagnostic and therapeutic plan, discussing this plan with medical personnel, following up on diagnostic studies and following the patient for clinical stability excluding any and all procedures. At least 50% of this time was spent in direct, [id number] contact. Thank you for allowing me to participate in this patient's care. Further recommendations will depend on patient's clinical course. Please do not hesitate to contact me if you have any questions or concerns. This medical document was created using electronic medical record system with [employer] computerized dictation system. Although this document has been carefully reviewed, there may still be some phonetic and typographical errors. These areas are purely typographical due to the imperfection of the software programs, and do not reflect any compromise in the patient's medical care. Plan discussed with: Patient, Other (nurse) FRENCH ARVIZU MD Sep 16, 2024 07:04
[2024-09-16 07:06] LABS: Blood Urea Nitrogen 17 mg/dL (9-23); Glucose 86 mg/dL (74-106)
--- NOTE | 2024-09-16 11:37 | DVHPN2 ---
Progress Note Date Seen: Sep 16, 2024 Medical Necessity Reason Pt with a Central, PICC or Fol: No Subjective Patient reports: No new complaints Other Systems: Patient seen and examined by myself today in follow-up Objective vital signs Vital Sign Date Time Temp Pulse Resp B/P (MAP) Pulse Ox O2 Delivery O2 Flow Rate FiO2 09/16/24 09:47 121/58 09/16/24 09:42 88 09/16/24 08:48 97.7 16 95 97.7 09/15/24 20:00 Room Air* 0 21 Total Intake and Output 09/15/24 09/15/24 09/16/24 15:00 23:00 07:00 Intake Total 800 ml 600 ml Output Total 2300 ml 1050 ml Balance -1500 ml -450 ml medications Current Medications Medications Dose Ordered Sig/Nicholas Route Start Time Stop Time Status Last Admin Dose Admin Acetaminophen/ Hydrocodone Bitart 1 tab Q4HP PRN PO 09/14/24 07:30 Ondansetron HCl 4 mg Q4HP PRN IV 09/14/24 07:30 Acetaminophen 650 mg Q6HP PRN PO 09/14/24 07:30 Diagnostic Test (Pha) 1 strip ACHS 09/14/24 11:30 09/16/24 06:26 1 STRIP Insulin Human Regular ACHS SC 09/14/24 11:30 09/15/24 18:26 2 UNITS Dextrose 50 ml UD PRN IV 09/14/24 09:45 Cefazolin Sodium 50 ml @ 100 mls/hr Q8HR IV 09/14/24 22:00 09/16/24 06:19 100 MLS/HR Apixaban 5 mg BID PO 09/14/24 22:00 09/16/24 09:46 5 MG Atorvastatin Calcium 20 mg HS PO 09/14/24 22:00 09/15/24 22:03 20 MG Diltiazem HCl 120 mg DAILY PO 09/15/24 10:00 09/15/24 11:08 120 MG Metoprolol Tartrate 75 mg BID PO 09/14/24 22:00 09/16/24 09:42 75 MG Benazepril HCl 20 mg BID PO 09/14/24 22:00 09/16/24 09:47 20 MG Hydralazine HCl 50 mg BID PO 09/14/24 22:00 09/16/24 09:46 50 MG Potassium Chloride 100 ml @ 50 mls/hr Q2H IV 09/15/24 09:30 09/15/24 13:29 Cancel Pantoprazole Sodium 40 mg DAILY@0600 PO 09/16/24 06:00 09/16/24 06:18 40 MG Examination: LUNGS:Normal, CVS:Normal, MSK:Normal laboratory and microbiology Laboratory Tests 09/16/24 05:18 09/15/24 04:44 Test 09/16/24 05:18 Range/Units Serum Glucose 86 74-106 mg/dL Microbiology Date/Time Source Procedure Growth Status 09/13/24 20:40 Voided Urine Urine Culture - Preliminary Resulted Problem List/Assessment/Plan Problem List/Assessment/Plan Acute kidney injury superimposed Chronic Kidney Disease stage III secondary hemodynamic mediated, FeNa < 1% Chronic diastolic Congestive heart failure NSTEMI Hyponatremia due to excess H2O Hypokalemia due to potassium depletion Hypomagnesemia Atrial fibrillation Anemia of chronic kidney disease Recommendations Kidney function slightly worsened today Increased urine output Strict I&Os kidney ultrasound reported bilateral echogenic kidney Fluid restrictions KCL replacement Magnesium sulfate 2 g IV piggyback Furosemide 40 mg IV daily We will continue to follow Plan discussed with: Patient ARMEN ESPINOSA MD Sep 16, 2024 11:37
[2024-09-16] MEDS: POTASSIUM CHL 20 Meq TABLET PO SCH (12:28)
[2024-09-16] MEDS: FUROSEMIDE 40 MG/4 ML VIAL IV SCH (12:29)
[2024-09-16] MEDS: POLYETHYLENE GLYCOL 17 GM PWDR PO ONE (20:14)
[2024-09-16] MEDS: SENNA 8.6 MG TAB PO ONE (20:14)
--- NOTE | 2024-09-16 21:33 | DVHPN2 ---
Assessment/Plan Assessment/Plan progress note subjective covering for dr palomo, seen during rounds, improving. working with PT, GFR stable.complained of constipation physical exam aox4 clear breath sounds s1 s2 irregular abdomen soft nontender le edema labs ekg imaging reviewed assessment and plan * Acute on chronic diastolic heart failure: improved * hyponatremia: improved * Diabetes mellitus: ssi * Hypertension: cont meds * Atrial fibrillation with secondary hypercoagulable state: eliquis * Morbid obesity. * Chronic kidney disease, stage III. * left leg cellulitis: iv ancef * uti deconditioning: PT slow transit constipation: miralax senna diet cardiac dvt ppx eliquis Plan discussed with: Patient Date of Service: Sep 16, 2024 Billing Provider: RAFAEL WOLF MD Common Visit Codes: [id number] INP/OBS CARE(HIGH) RAFAEL WOLF MD Sep 16, 2024 21:33
[2024-09-17] VITALS (7 sets, daily range): BP systolic 120–153; BP diastolic 61–98; PULSE 64–86; RESP 17–19; TEMP 97–98.6; O2SAT 92–100
--- NOTE | 2024-09-17 08:50 | DVHPN2 ---
Progress Note - Dictate Date Seen: Sep 17, 2024 Medical Necessity Reason Pt with a Central, PICC or Fol: No vital signs Vital Sign Date Time Temp Pulse Resp B/P (MAP) Pulse Ox O2 Delivery O2 Flow Rate FiO2 09/17/24 05:00 97.8 74 18 153/75 (101) 97 97.8 09/16/24 20:00 Room Air* 0 21 Total Intake and Output 09/16/24 09/16/24 09/17/24 15:00 23:00 07:00 Intake Total 1050 ml 690 ml Output Total 1800 ml 1450 ml Balance -750 ml -760 ml medications Current Medications Medications Dose Ordered Sig/Nicholas Route Start Time Stop Time Status Last Admin Dose Admin Acetaminophen/ Hydrocodone Bitart 1 tab Q4HP PRN PO 09/14/24 07:30 Ondansetron HCl 4 mg Q4HP PRN IV 09/14/24 07:30 Acetaminophen 650 mg Q6HP PRN PO 09/14/24 07:30 Diagnostic Test (Pha) 1 strip ACHS 09/14/24 11:30 09/17/24 05:44 1 STRIP Insulin Human Regular ACHS SC 09/14/24 11:30 09/15/24 18:26 2 UNITS Dextrose 50 ml UD PRN IV 09/14/24 09:45 Cefazolin Sodium 50 ml @ 100 mls/hr Q8HR IV 09/14/24 22:00 09/17/24 05:14 100 MLS/HR Apixaban 5 mg BID PO 09/14/24 22:00 09/16/24 21:57 5 MG Atorvastatin Calcium 20 mg HS PO 09/14/24 22:00 09/16/24 21:57 20 MG Diltiazem HCl 120 mg DAILY PO 09/15/24 10:00 09/16/24 12:29 120 MG Metoprolol Tartrate 75 mg BID PO 09/14/24 22:00 09/16/24 22:07 75 MG Benazepril HCl 20 mg BID PO 09/14/24 22:00 09/16/24 21:58 20 MG Hydralazine HCl 50 mg BID PO 09/14/24 22:00 09/16/24 21:59 50 MG Potassium Chloride 100 ml @ 50 mls/hr Q2H IV 09/15/24 09:30 09/15/24 13:29 Cancel Pantoprazole Sodium 40 mg DAILY@0600 PO 09/16/24 06:00 09/17/24 05:14 40 MG Furosemide 40 mg DAILY IV 09/16/24 11:45 09/16/24 12:29 40 MG Potassium Chloride 20 meq DAILY PO 09/16/24 11:45 09/16/24 12:28 20 MEQ laboratory and microbiology Laboratory Tests 09/16/24 05:18 09/15/24 04:44 Test 09/16/24 05:18 Range/Units Serum Glucose 86 74-106 mg/dL Assessment/Plan Patient is a 79-year-old female who presented to the hospital with generalized weakness mostly in the legs. She mentions that she felt like the time that she was told she had low sodium and was seen in urgent care and also legs time was seen in [facility] for the same. Patient is found to have hyponatremia. She is also found to have atrial fibrillation and cardiology was involved. Patient is known to our practice from before and outside. Patient does have history of atrial fibrillation for which has had twice ablation done. She is on chronic anticoagulation (Eliquis). Denies chest pains. Denies shortness of breath. Denies palpitations. Denies loss of consciousness. Obese female, not in acute distress. Lying flat in bed. No JVD. Mucosa is pink and wet. No carotid bruit. Lungs are clear to auscultation. Cardiac: Irregular, systolic murmur 2/6 in apex is heard. Abdomen is obese and distended. Bowel sound is positive. There is no tenderness. No hepatomegaly. Dorsalis pedis is 2+ bilateral. Left-sided lower extremity edema is observed. 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 Does have Krause catheter. Echocardiogram of July 07, 2024 revealed ejection fraction of 55%, biatrial enlargement and enlarged right ventricle Hemoglobin: 10.7 - 9.8 Creatinine: 1.22 - 1.18 -1.31 Potassium: 3.6 - 3.2 - 3.6 Sodium: 121 - 131 - 131 Troponin (high sensitive): 125 - 121 - 116 BNP: 227.63 TSH: 1.81 D-Dimer: 0.23 Urine analysis was positive for WBCs/it was turbid Urine toxicology was nonrevealing Chest x-ray revealed: IMPRESSION: Mild cardiomegaly and mild pulmonary vascular congestion. No significant change compared to the prior chest x-ray from 07/12/24. Venous Doppler of lower extremities revealed: IMPRESSION: No right or left lower extremity deep venous thrombosis. Renal ultrasound revealed: IMPRESSION: Echogenic renal corticies can be seen with medical renal disease. Bilateral small renal cysts measures 1.7 cm on the right and 2.9 cm on the left. EKG revealed atrial fibrillation with moderate ventricular response, IVCD and old inferior [place] Tele reveals atrial fibrillation with moderate ventricular response Echocardiogram reported: lvef 35-40% by visuale stimate. moderate LVH noted. restrictive LV filling, diastolic dysfunction. mild to moderate RV dysfunction notd. left atrium enlarged aortic sclerosis noted (images reviewed: EF around 50% with diffuse hypokinesis and no local wall motion abnormality) Patient is a 79-year-old female who presented with generalized weakness and is found to have hyponatremia. Does have baseline history of atrial fibrillation and the rate is controlled. Is found to have minimally elevated/flat troponin. Acute coronary syndrome is not considered at this point. Abnormal troponin most likely reflects demand physiology in a patient with possible pulmonary hypertension/ heart failure. UTI could have contributed to the clinical picture itself. Echo reported EF of 35 - 40% (images reviewed: EF around 50% with diffuse hypokinesis and no local wall motion abnormality). 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 Cardiac suggestion for management: Manage on telemetry Follow-up electrolytes and kidney function tests and correct abnormalities Long-term continuation of anticoagulation is advised (on Eliquis) Evaluation and management of hyponatremia as per primary team. Nephrology follow up. Further evaluation and management depends on the above and clinical course A total of 55 minutes was spent reviewing the patient record, examining the patient, making a diagnostic and therapeutic plan, discussing this plan with medical personnel, following up on diagnostic studies and following the patient for clinical stability excluding any and all procedures. At least 50% of this time was spent in direct, [id number] contact. Thank you for allowing me to participate in this patient's care. Further recommendations will depend on patient's clinical course. Please do not hesitate to contact me if you have any questions or concerns. This medical document was created using electronic medical record system with [employer] computerized dictation system. Although this document has been carefully reviewed, there may still be some phonetic and typographical errors. These areas are purely typographical due to the imperfection of the software programs, and do not reflect any compromise in the patient's medical care. Plan discussed with: Patient, Other (nurse) FRENCH ARVIZU MD Sep 17, 2024 08:50
--- NOTE | 2024-09-17 11:41 | DVHPN2 ---
Progress Note Date Seen: Sep 17, 2024 Medical Necessity Reason Pt with a Central, PICC or Fol: No Subjective Review of Systems: RESPIRATORY:Abnormal Other Systems: Patient seen and examined by myself today in follow-up Objective vital signs Vital Sign Date Time Temp Pulse Resp B/P (MAP) Pulse Ox O2 Delivery O2 Flow Rate FiO2 09/17/24 09:51 120/71 09/17/24 09:49 73 09/17/24 08:49 98.4 19 92 98.4 09/16/24 20:00 Room Air* 0 21 Total Intake and Output 09/16/24 09/16/24 09/17/24 15:00 23:00 07:00 Intake Total 1050 ml 690 ml Output Total 1800 ml 1450 ml Balance -750 ml -760 ml medications Current Medications Medications Dose Ordered Sig/Nicholas Route Start Time Stop Time Status Last Admin Dose Admin Acetaminophen/ Hydrocodone Bitart 1 tab Q4HP PRN PO 09/14/24 07:30 Ondansetron HCl 4 mg Q4HP PRN IV 09/14/24 07:30 Acetaminophen 650 mg Q6HP PRN PO 09/14/24 07:30 Diagnostic Test (Pha) 1 strip ACHS 09/14/24 11:30 09/17/24 05:44 1 STRIP Insulin Human Regular ACHS SC 09/14/24 11:30 09/15/24 18:26 2 UNITS Dextrose 50 ml UD PRN IV 09/14/24 09:45 Cefazolin Sodium 50 ml @ 100 mls/hr Q8HR IV 09/14/24 22:00 09/17/24 05:14 100 MLS/HR Apixaban 5 mg BID PO 09/14/24 22:00 09/17/24 09:50 5 MG Atorvastatin Calcium 20 mg HS PO 09/14/24 22:00 09/16/24 21:57 20 MG Diltiazem HCl 120 mg DAILY PO 09/15/24 10:00 09/16/24 12:29 120 MG Metoprolol Tartrate 75 mg BID PO 09/14/24 22:00 09/17/24 09:49 75 MG Benazepril HCl 20 mg BID PO 09/14/24 22:00 09/17/24 09:50 20 MG Hydralazine HCl 50 mg BID PO 09/14/24 22:00 09/16/24 21:59 50 MG Potassium Chloride 100 ml @ 50 mls/hr Q2H IV 09/15/24 09:30 09/15/24 13:29 Cancel Pantoprazole Sodium 40 mg DAILY@0600 PO 09/16/24 06:00 09/17/24 05:14 40 MG Furosemide 40 mg DAILY IV 09/16/24 11:45 09/17/24 09:51 40 MG Potassium Chloride 20 meq DAILY PO 09/16/24 11:45 09/17/24 09:51 20 MEQ Examination: LUNGS:Normal, CVS:Normal, MSK:Normal laboratory and microbiology Laboratory Tests 09/16/24 05:18 09/15/24 04:44 Test 09/16/24 05:18 Range/Units Serum Glucose 86 74-106 mg/dL Microbiology Date/Time Source Procedure Growth Status 09/13/24 20:40 Voided Urine Urine Culture - Final Complete Problem List/Assessment/Plan Problem List/Assessment/Plan Acute kidney injury superimposed Chronic Kidney Disease stage III secondary hemodynamic mediated, FeNa < 1% Chronic diastolic Congestive heart failure NSTEMI Hyponatremia due to excess H2O Hypokalemia due to potassium depletion Hypomagnesemia Atrial fibrillation Anemia of chronic kidney disease Recommendations No labs done today Increased urine output Hyponatremia is improving Strict I&Os kidney ultrasound reported bilateral echogenic kidney Fluid restrictions KCL replacement Magnesium sulfate 2 g IV piggyback Furosemide 40 mg IV daily We will continue to follow Plan discussed with: Patient ARMEN ESPINOSA MD Sep 17, 2024 11:41
[2024-09-17] MEDS: GOLYTELY 4L KIT PO ONE (13:30)
--- NOTE | 2024-09-17 19:27 | DVHPN2 ---
Assessment/Plan Assessment/Plan progress note subjective covering for dr palomo, seen during rounds, further improving, able to ambulate further. had bm today physical exam aox4 clear breath sounds s1 s2 irregular abdomen soft nontender le edema labs ekg imaging reviewed assessment and plan * Acute on chronic diastolic heart failure: improved * hyponatremia: improved * Diabetes mellitus: ssi * Hypertension: cont meds * Atrial fibrillation with secondary hypercoagulable state: eliquis * Morbid obesity. * Chronic kidney disease, stage III. * left leg cellulitis: iv ancef * uti deconditioning: PT slow transit constipation: miralax senna diet cardiac dvt ppx eliquis Plan discussed with: Patient My Orders Orders - RAFAEL WOLF MD Procedure Category Date Status Time Dietary NOTICE 09/17/24 Transmitted Recommendations 14:15 Basic Metabolic Panel LAB 09/18/24 Verified 04:00 Magnesium LAB 09/18/24 Verified 04:00 Phosphorus LAB 09/18/24 Verified 04:00 Date of Service: Sep 17, 2024 Billing Provider: RAFAEL WOLF MD Common Visit Codes: [id number] INP/OBS CARE(HIGH) RAFAEL WOLF MD Sep 17, 2024 19:27
[2024-09-18] VITALS (7 sets, daily range): BP systolic 119–143; BP diastolic 67–74; PULSE 69–81; RESP 17–19; TEMP 95.2–98.2; O2SAT 96–100
[2024-09-18 05:21] LABS: Anion Gap 9 (5-15); Carbon Dioxide 25 mmol/L (20-31)
[2024-09-18 05:25] LABS: Chloride 98 mmol/L (98-107); Potassium 3.5 mmol/L (3.5-5.1); Sodium 132 mmol/L (136-145)
[2024-09-18 05:26] LABS: BUN/Creatinine Ratio 19.4 (10.0-20.0); Blood Urea Nitrogen 27 mg/dL (9-23); Glucose 102 mg/dL (74-106)
[2024-09-18 05:27] LABS: Magnesium 1.4 mg/dL (1.6-2.6)
[2024-09-18 05:28] LABS: Phosphorus 2.9 mg/dL (2.4-5.1)
--- NOTE | 2024-09-18 13:09 | DVHPN2 ---
Progress Note Date Seen: Sep 18, 2024 Medical Necessity Reason Pt with a Central, PICC or Fol: No Subjective Patient reports: No new complaints Other Systems: Patient seen and examined by myself today in follow-up Objective vital signs Vital Sign Date Time Temp Pulse Resp B/P (MAP) Pulse Ox O2 Delivery O2 Flow Rate FiO2 09/18/24 09:54 131/67 09/18/24 09:53 81 09/18/24 09:00 98.0 17 98 98.0 09/18/24 08:00 Room Air* 0 21 Total Intake and Output 09/17/24 09/17/24 09/18/24 15:00 23:00 07:00 Intake Total 960 ml 950 ml Output Total 1450 ml Balance -490 ml 950 ml medications Current Medications Medications Dose Ordered Sig/Nicholas Route Start Time Stop Time Status Last Admin Dose Admin Acetaminophen/ Hydrocodone Bitart 1 tab Q4HP PRN PO 09/14/24 07:30 Ondansetron HCl 4 mg Q4HP PRN IV 09/14/24 07:30 Acetaminophen 650 mg Q6HP PRN PO 09/14/24 07:30 Diagnostic Test (Pha) 1 strip ACHS 09/14/24 11:30 09/18/24 11:49 1 STRIP Insulin Human Regular ACHS SC 09/14/24 11:30 09/18/24 11:48 2 UNITS Dextrose 50 ml UD PRN IV 09/14/24 09:45 Cefazolin Sodium 50 ml @ 100 mls/hr Q8HR IV 09/14/24 22:00 09/18/24 05:35 100 MLS/HR Apixaban 5 mg BID PO 09/14/24 22:00 09/18/24 09:49 5 MG Atorvastatin Calcium 20 mg HS PO 09/14/24 22:00 09/17/24 22:06 20 MG Diltiazem HCl 120 mg DAILY PO 09/15/24 10:00 09/18/24 09:50 120 MG Metoprolol Tartrate 75 mg BID PO 09/14/24 22:00 09/18/24 09:53 75 MG Benazepril HCl 20 mg BID PO 09/14/24 22:00 09/18/24 09:50 20 MG Hydralazine HCl 50 mg BID PO 09/14/24 22:00 09/18/24 09:54 50 MG Potassium Chloride 100 ml @ 50 mls/hr Q2H IV 09/15/24 09:30 09/15/24 13:29 Cancel Pantoprazole Sodium 40 mg DAILY@0600 PO 09/16/24 06:00 09/18/24 05:23 40 MG Furosemide 40 mg DAILY IV 09/16/24 11:45 09/18/24 09:49 40 MG Potassium Chloride 20 meq DAILY PO 09/16/24 11:45 09/18/24 09:49 20 MEQ Examination: LUNGS:Normal, CVS:Normal, MSK:Normal laboratory and microbiology Laboratory Tests 09/18/24 04:24 09/15/24 04:44 Test 09/18/24 04:24 Range/Units Serum Glucose 102 74-106 mg/dL Microbiology Date/Time Source Procedure Growth Status 09/13/24 20:40 Voided Urine Urine Culture - Final Complete Problem List/Assessment/Plan Problem List/Assessment/Plan Acute kidney injury superimposed Chronic Kidney Disease stage III secondary hemodynamic mediated, FeNa < 1% Chronic diastolic Congestive heart failure NSTEMI Hyponatremia due to excess H2O Hypokalemia due to potassium depletion Hypomagnesemia Atrial fibrillation Anemia of chronic kidney disease Recommendations Kidney function stabilize Chronic Kidney Disease stage IIIB Increased urine output Hyponatremia is improving Strict I&Os kidney ultrasound reported bilateral echogenic kidney Fluid restrictions KCL replacement Magnesium sulfate 2 g IV piggyback Furosemide 40 mg IV daily I will sign off this case please refer to my office two weeks after discharge for Chronic Kidney Disease follow-up Thank you for the consult Plan discussed with: Patient Dietary Evaluation Review Comments: 1) CCHO 60 + cardiac 2) Refer to Tea Room Manager on DC 3) Continue current plan of care Expected Outcomes/Goals: Pt will meet 75% estimated needs Fu 3-5 days ARMEN ESPINOSA MD Sep 18, 2024 13:09
--- NOTE | 2024-09-18 16:32 | DVHPN2 ---
Assessment/Plan Assessment/Plan progress note subjective covering for dr palomo, seen during rounds, c/w PT, dispo planning physical exam aox4 clear breath sounds s1 s2 irregular abdomen soft nontender le edema labs ekg imaging reviewed assessment and plan * Acute on chronic diastolic heart failure: improved * hyponatremia: improved * Diabetes mellitus: ssi * Hypertension: cont meds * Atrial fibrillation with secondary hypercoagulable state: eliquis * Morbid obesity. * Chronic kidney disease, stage III. * left leg cellulitis: iv ancef * uti deconditioning: PT slow transit constipation: miralax senna diet cardiac dvt ppx eliquis Plan discussed with: Patient My Orders Orders - RAFAEL WOLF MD Procedure Category Date Status Time Discontinue Tele ALEIDA 09/18/24 Verified 16:31 Transfer Orders XFER 09/18/24 Verified 16:31 Date of Service: Sep 18, 2024 Billing Provider: RAFAEL WOLF MD Common Visit Codes: [id number] INP/OBS CARE(MOD) RAFAEL WOLF MD Sep 18, 2024 16:32
[2024-09-18] MEDS: MAGNESIUM SULFATE 1GM/100ML 100 ML IV SCH (17:46)
[2024-09-18] MEDS: hydrOXYzine HCL 10 MG TAB PO ONE (17:46)
--- NOTE | 2024-09-18 19:27 | DVHPN2 ---
Progress Note - Dictate Date Seen: Sep 18, 2024 Medical Necessity Reason Pt with a Central, PICC or Fol: No vital signs Vital Sign Date Time Temp Pulse Resp B/P (MAP) Pulse Ox O2 Delivery O2 Flow Rate FiO2 09/18/24 17:00 97.8 72 17 123/67 (85) 100 97.8 09/18/24 08:00 Room Air* 0 21 Total Intake and Output 09/17/24 09/17/24 09/18/24 15:00 23:00 07:00 Intake Total 960 ml 950 ml Output Total 1450 ml Balance -490 ml 950 ml medications Current Medications Medications Dose Ordered Sig/Nicholas Route Start Time Stop Time Status Last Admin Dose Admin Acetaminophen/ Hydrocodone Bitart 1 tab Q4HP PRN PO 09/14/24 07:30 Ondansetron HCl 4 mg Q4HP PRN IV 09/14/24 07:30 Acetaminophen 650 mg Q6HP PRN PO 09/14/24 07:30 Diagnostic Test (Pha) 1 strip ACHS 09/14/24 11:30 09/18/24 17:00 1 STRIP Insulin Human Regular ACHS SC 09/14/24 11:30 09/18/24 11:48 2 UNITS Dextrose 50 ml UD PRN IV 09/14/24 09:45 Cefazolin Sodium 50 ml @ 100 mls/hr Q8HR IV 09/14/24 22:00 09/18/24 14:17 100 MLS/HR Apixaban 5 mg BID PO 09/14/24 22:00 09/18/24 09:49 5 MG Atorvastatin Calcium 20 mg HS PO 09/14/24 22:00 09/17/24 22:06 20 MG Diltiazem HCl 120 mg DAILY PO 09/15/24 10:00 09/18/24 09:50 120 MG Metoprolol Tartrate 75 mg BID PO 09/14/24 22:00 09/18/24 09:53 75 MG Benazepril HCl 20 mg BID PO 09/14/24 22:00 09/18/24 09:50 20 MG Hydralazine HCl 50 mg BID PO 09/14/24 22:00 09/18/24 09:54 50 MG Potassium Chloride 100 ml @ 50 mls/hr Q2H IV 09/15/24 09:30 09/15/24 13:29 Cancel Pantoprazole Sodium 40 mg DAILY@0600 PO 09/16/24 06:00 09/18/24 05:23 40 MG Furosemide 40 mg DAILY IV 09/16/24 11:45 09/18/24 09:49 40 MG Potassium Chloride 20 meq DAILY PO 09/16/24 11:45 09/18/24 09:49 20 MEQ laboratory and microbiology Laboratory Tests 09/18/24 04:24 09/15/24 04:44 Test 09/18/24 04:24 Range/Units Serum Glucose 102 74-106 mg/dL Assessment/Plan Patient is a 79-year-old female who presented to the hospital with generalized weakness mostly in the legs. She mentions that she felt like the time that she was told she had low sodium and was seen in urgent care and also legs time was seen in [facility] for the same. Patient is found to have hyponatremia. She is also found to have atrial fibrillation and cardiology was involved. Patient is known to our practice from before and outside. Patient does have history of atrial fibrillation for which has had twice ablation done. She is on chronic anticoagulation (Eliquis). Denies chest pains. Denies shortness of breath. Denies palpitations. Denies loss of consciousness. Obese female, not in acute distress. Lying flat in bed. No JVD. Mucosa is pink and wet. No carotid bruit. Lungs are clear to auscultation. Cardiac: Irregular, systolic murmur 2/6 in apex is heard. Abdomen is obese and distended. Bowel sound is positive. There is no tenderness. No hepatomegaly. Dorsalis pedis is 2+ bilateral. Left-sided lower extremity edema is observed. 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 Does have Krause catheter. Echocardiogram of July 07, 2024 revealed ejection fraction of 55%, biatrial enlargement and enlarged right ventricle Hemoglobin: 10.7 - 9.8 Creatinine: 1.22 - 1.18 -1.31 - 1.39 Potassium: 3.6 - 3.2 - 3.6 - 3.5 Sodium: 121 - 131 - 131 - 132 Troponin (high sensitive): 125 - 121 - 116 BNP: 227.63 TSH: 1.81 D-Dimer: 0.23 Urine analysis was positive for WBCs/it was turbid Urine toxicology was nonrevealing Chest x-ray revealed: IMPRESSION: Mild cardiomegaly and mild pulmonary vascular congestion. No significant change compared to the prior chest x-ray from 07/12/24. Venous Doppler of lower extremities revealed: IMPRESSION: No right or left lower extremity deep venous thrombosis. Renal ultrasound revealed: IMPRESSION: Echogenic renal corticies can be seen with medical renal disease. Bilateral small renal cysts measures 1.7 cm on the right and 2.9 cm on the left. EKG revealed atrial fibrillation with moderate ventricular response, IVCD and old inferior DC Tele reveals atrial fibrillation with moderate ventricular response Echocardiogram reported: lvef 35-40% by visuale stimate. moderate LVH noted. restrictive LV filling, diastolic dysfunction. mild to moderate RV dysfunction notd. left atrium enlarged aortic sclerosis noted (images reviewed: EF around 50% with diffuse hypokinesis and no local wall motion abnormality) Patient is a 79-year-old female who presented with generalized weakness and is found to have hyponatremia. Does have baseline history of atrial fibrillation and the rate is controlled. Is found to have minimally elevated/flat troponin. Acute coronary syndrome is not considered at this point. Abnormal troponin most likely reflects demand physiology in a patient with possible pulmonary hypertension/ heart failure. UTI could have contributed to the clinical picture itself. Echo reported EF of 35 - 40% (images reviewed: EF around 50% with diffuse hypokinesis and no local wall motion abnormality). 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 Cardiac suggestion for management: Manage on telemetry Follow-up electrolytes and kidney function tests and correct abnormalities Long-term continuation of anticoagulation is advised (on Eliquis) Evaluation and management of hyponatremia as per primary team. Nephrology follow up. Cardiac macias, stable Further evaluation and management depends on the above and clinical course A total of 55 minutes was spent reviewing the patient record, examining the patient, making a diagnostic and therapeutic plan, discussing this plan with medical personnel, following up on diagnostic studies and following the patient for clinical stability excluding any and all procedures. At least 50% of this time was spent in direct, [id number] contact. Thank you for allowing me to participate in this patient's care. Further recommendations will depend on patient's clinical course. Please do not hesitate to contact me if you have any questions or concerns. This medical document was created using electronic medical record system with [employer] computerized dictation system. Although this document has been carefully reviewed, there may still be some phonetic and typographical errors. These areas are purely typographical due to the imperfection of the software programs, and do not reflect any compromise in the patient's medical care. Dietary Evaluation Review Comments: 1) CCHO 60 + cardiac 2) Refer to Online Producer on DC 3) Continue current plan of care Expected Outcomes/Goals: Pt will meet 75% estimated needs Fu 3-5 days Plan discussed with: Patient, Other (nurse) FRENCH ARVIZU MD Sep 18, 2024 19:27
[2024-09-19] VITALS (7 sets, daily range): BP systolic 110–136; BP diastolic 48–70; PULSE 64–85; RESP 18–19; TEMP 97.6–98.1; O2SAT 95–98
[2024-09-19 06:02] LABS: Basophils # (auto) 0 10 ^3/uL (0-0.2); Basophils % (auto) 0.7 % (0.0-2.0); Eosinophils # (auto) 0.1 10 ^3/uL (0-0.8); Eosinophils % (auto) 1.4 % (0.0-7.0); Hemoglobin 11.1 g/dL (12.2-16.2); Lymphocytes # (auto) 0.7 10 ^3/uL (0.4-5.4); Lymphocytes % (auto) 12.5 % (10.0-50.0); Mean Corpuscular Hemoglobin 31.7 pg (28.0-32.0); Mean Corpuscular Hgb Conc. 34.6 g/dL (32.0-36.0); Mean Corpuscular Volume 91.5 fL (80.0-100.0); Monocytes # (auto) 0.6 10 ^3/uL (0-1.3); Monocytes % (auto) 10.9 % (0.0-12.0); Neutrophils # (auto) 3.9 10 ^3/uL (1.6-8.6); Neutrophils % (auto) 74.5 % (37.0-80.0); Nucleated Red Blood Cells % 0.1 %; Platelet Count (auto) 305 10^3/uL (140-450); White Blood Cell 5.3 10^3/uL (4.4-10.8)
[2024-09-19 06:04] LABS: Potassium 3.6 mmol/L (3.5-5.1)
[2024-09-19 06:05] LABS: Anion Gap 10 (5-15); Calcium 10.2 mg/dL (8.7-10.4); Carbon Dioxide 26 mmol/L (20-31)
[2024-09-19 06:10] LABS: BUN/Creatinine Ratio 19.7 (10.0-20.0); Glucose 97 mg/dL (74-106)
[2024-09-19 06:11] LABS: Magnesium 1.9 mg/dL (1.6-2.6)
[2024-09-19 06:12] LABS: Phosphorus 2.8 mg/dL (2.4-5.1)
[2024-09-19 06:18] LABS: Blood Urea Nitrogen 28 mg/dL (9-23); Chloride 96 mmol/L (98-107); Sodium 132 mmol/L (136-145)
--- NOTE | 2024-09-19 08:23 | DVHPN2 ---
Progress Note - Dictate Date Seen: Sep 19, 2024 Medical Necessity Reason Pt with a Central, PICC or Fol: No vital signs Vital Sign Date Time Temp Pulse Resp B/P (MAP) Pulse Ox O2 Delivery O2 Flow Rate FiO2 09/19/24 05:00 98.0 85 19 119/65 (83) 95 98.0 09/18/24 20:00 Room Air* 0 21 Total Intake and Output 09/18/24 09/18/24 09/19/24 15:00 23:00 07:00 Intake Total 1600 ml 700 ml Output Total 4589 ml 1900 ml Balance -2989 ml -1200 ml medications Current Medications Medications Dose Ordered Sig/Nicholas Route Start Time Stop Time Status Last Admin Dose Admin Acetaminophen/ Hydrocodone Bitart 1 tab Q4HP PRN PO 09/14/24 07:30 Ondansetron HCl 4 mg Q4HP PRN IV 09/14/24 07:30 Acetaminophen 650 mg Q6HP PRN PO 09/14/24 07:30 Diagnostic Test (Pha) 1 strip ACHS 09/14/24 11:30 09/19/24 05:40 1 STRIP Insulin Human Regular ACHS SC 09/14/24 11:30 09/18/24 11:48 2 UNITS Dextrose 50 ml UD PRN IV 09/14/24 09:45 Cefazolin Sodium 50 ml @ 100 mls/hr Q8HR IV 09/14/24 22:00 09/19/24 05:40 100 MLS/HR Apixaban 5 mg BID PO 09/14/24 22:00 09/18/24 21:52 5 MG Atorvastatin Calcium 20 mg HS PO 09/14/24 22:00 09/18/24 21:52 20 MG Diltiazem HCl 120 mg DAILY PO 09/15/24 10:00 09/18/24 09:50 120 MG Metoprolol Tartrate 75 mg BID PO 09/14/24 22:00 09/18/24 21:50 75 MG Benazepril HCl 20 mg BID PO 09/14/24 22:00 09/18/24 21:50 20 MG Hydralazine HCl 50 mg BID PO 09/14/24 22:00 09/18/24 21:51 50 MG Potassium Chloride 100 ml @ 50 mls/hr Q2H IV 09/15/24 09:30 09/15/24 13:29 Cancel Pantoprazole Sodium 40 mg DAILY@0600 PO 09/16/24 06:00 09/19/24 05:40 40 MG Furosemide 40 mg DAILY IV 09/16/24 11:45 09/18/24 09:49 40 MG Potassium Chloride 20 meq DAILY PO 09/16/24 11:45 09/18/24 09:49 20 MEQ laboratory and microbiology Laboratory Tests 09/19/24 04:42 Test 09/19/24 04:42 Range/Units Serum Glucose 97 74-106 mg/dL Assessment/Plan Patient is a 79-year-old female who presented to the hospital with generalized weakness mostly in the legs. She mentions that she felt like the time that she was told she had low sodium and was seen in urgent care and also legs time was seen in [facility] for the same. Patient is found to have hyponatremia. She is also found to have atrial fibrillation and cardiology was involved. Patient is known to our practice from before and outside. Patient does have history of atrial fibrillation for which has had twice ablation done. She is on chronic anticoagulation (Eliquis). Denies chest pains. Denies shortness of breath. Denies palpitations. Denies loss of consciousness. Obese female, not in acute distress. Lying flat in bed. No JVD. Mucosa is pink and wet. No carotid bruit. Lungs are clear to auscultation. Cardiac: Irregular, systolic murmur 2/6 in apex is heard. Abdomen is obese and distended. Bowel sound is positive. There is no tenderness. No hepatomegaly. Dorsalis pedis is 2+ bilateral. Left-sided lower extremity edema is observed. 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 Does have Krause catheter. Echocardiogram of July 07, 2024 revealed ejection fraction of 55%, biatrial enlargement and enlarged right ventricle Hemoglobin: 10.7 - 9.8 - 11.1 Creatinine: 1.22 - 1.18 -1.31 - 1.39 - 1.42 Potassium: 3.6 - 3.2 - 3.6 - 3.5 - 3.6 Sodium: 121 - 131 - 131 - 132 - 132 Troponin (high sensitive): 125 - 121 - 116 BNP: 227.63 TSH: 1.81 D-Dimer: 0.23 Urine analysis was positive for WBCs/it was turbid Urine toxicology was nonrevealing Chest x-ray revealed: IMPRESSION: Mild cardiomegaly and mild pulmonary vascular congestion. No significant change compared to the prior chest x-ray from 07/12/24. Venous Doppler of lower extremities revealed: IMPRESSION: No right or left lower extremity deep venous thrombosis. Renal ultrasound revealed: IMPRESSION: Echogenic renal corticies can be seen with medical renal disease. Bilateral small renal cysts measures 1.7 cm on the right and 2.9 cm on the left. EKG revealed atrial fibrillation with moderate ventricular response, IVCD and old inferior OR Tele reveals atrial fibrillation with moderate ventricular response Echocardiogram reported: lvef 35-40% by visuale stimate. moderate LVH noted. restrictive LV filling, diastolic dysfunction. mild to moderate RV dysfunction notd. left atrium enlarged aortic sclerosis noted (images reviewed: EF around 50% with diffuse hypokinesis and no local wall motion abnormality) Patient is a 79-year-old female who presented with generalized weakness and is found to have hyponatremia. Does have baseline history of atrial fibrillation and the rate is controlled. Is found to have minimally elevated/flat troponin. Acute coronary syndrome is not considered at this point. Abnormal troponin most likely reflects demand physiology in a patient with possible pulmonary hypertension/ heart failure. UTI could have contributed to the clinical picture itself. Echo reported EF of 35 - 40% (images reviewed: EF around 50% with diffuse hypokinesis and no local wall motion abnormality). 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 Cardiac suggestion for management: Manage on telemetry Follow-up electrolytes and kidney function tests and correct abnormalities Long-term continuation of anticoagulation is advised (on Eliquis) Evaluation and management of hyponatremia as per primary team. Nephrology follow up. Cardiac macias, stable Further evaluation and management depends on the above and clinical course A total of 55 minutes was spent reviewing the patient record, examining the patient, making a diagnostic and therapeutic plan, discussing this plan with medical personnel, following up on diagnostic studies and following the patient for clinical stability excluding any and all procedures. At least 50% of this time was spent in direct, [id number] contact. Thank you for allowing me to participate in this patient's care. Further recommendations will depend on patient's clinical course. Please do not hesitate to contact me if you have any questions or concerns. This medical document was created using electronic medical record system with [employer] computerized dictation system. Although this document has been carefully reviewed, there may still be some phonetic and typographical errors. These areas are purely typographical due to the imperfection of the software programs, and do not reflect any compromise in the patient's medical care. Dietary Evaluation Review Comments: 1) CCHO 60 + cardiac 2) Refer to Assistant Passenger Locomotive Engineer on DC 3) Continue current plan of care Expected Outcomes/Goals: Pt will meet 75% estimated needs Fu 3-5 days Plan discussed with: Patient, Other (nurse) FRENCH ARVIZU MD Sep 19, 2024 08:23
--- NOTE | 2024-09-19 11:29 | DVHDS2 ---
Discharge Summary Date of Admission Sep 14, 2024 at 07:21 Date of Discharge: Sep 19, 2024 Labs/Diagnostic Data: Laboratory Results Test 09/19/24 10:48 09/19/24 04:42 09/15/24 10:43 09/15/24 04:44 POC Glucose 126 mg/dl (70-106) White Blood Count 5.3 10^3/uL (4.4-10.8) Red Blood Count 3.50 10^6/uL (4.0-5.20) Hemoglobin 11.1 g/dL (12.2-16.2) Hematocrit 32.0 % (36.0-46.0) Mean Corpuscular Volume 91.5 fL (80.0-100.0) Mean Corpuscular Hemoglobin 31.7 pg (28.0-32.0) Mean Corpuscular Hemoglobin Concent 34.6 g/dL (32.0-36.0) Red Cell Distribution Width 14.0 % (11.8-14.3) Platelet Count 305 10^3/uL (140-450) Mean Platelet Volume 7.7 fL (6.9-10.8) Neutrophils (%) (Auto) 74.5 % (37.0-80.0) Lymphocytes (%) (Auto) 12.5 % (10.0-50.0) Monocytes (%) (Auto) 10.9 % (0.0-12.0) Eosinophils (%) (Auto) 1.4 % (0.0-7.0) Basophils (%) (Auto) 0.7 % (0.0-2.0) Neutrophils # (Auto) 3.9 10 ^3/uL (1.6-8.6) Lymphocytes # (Auto) 0.7 10 ^3/uL (0.4-5.4) Monocytes # (Auto) 0.6 10 ^3/uL (0-1.3) Eosinophils # (Auto) 0.1 10 ^3/uL (0-0.8) Basophils # (Auto) 0 10 ^3/uL (0-0.2) Nucleated Red Blood Cells 0.1 % Sodium Level 132 mmol/L (136-145) Potassium Level 3.6 mmol/L (3.5-5.1) Chloride Level 96 mmol/L (98-107) Carbon Dioxide Level 26 mmol/L (20-31) Anion Gap 10 (5-15) Blood Urea Nitrogen 28 mg/dL (9-23) Creatinine 1.42 mg/dL (0.550-1.02) Glomerular Filtration Rate Calc 38 mL/min (>90) BUN/Creatinine Ratio 19.7 (10.0-20.0) Serum Glucose 97 mg/dL (74-106) Calcium Level 10.2 mg/dL (8.7-10.4) Phosphorus Level 2.8 mg/dL (2.4-5.1) Magnesium Level 1.9 mg/dL (1.6-2.6) Vitamin D 25-Hydroxy 28.6 ng/mL (30.0-100) Parathyroid Hormone (Intact) 73.4 pg/mL (18.4-80.1) Total Bilirubin 0.4 mg/dL (0.2-1.0) Aspartate Amino Transferase (AST) 33 U/L (13-40) Alanine Aminotransferase (ALT) 17 U/L (7-40) Alkaline Phosphatase 39 U/L (46-116) Total Protein 5.3 g/dL (5.7-8.2) Albumin 3.2 g/dL (3.2-4.8) Test 09/14/24 18:45 09/14/24 07:19 09/13/24 21:18 09/13/24 20:48 D-Dimer, Quantitative 0.23 mg/L FEU (0.0-0.49) Troponin I High Sensitivity 116 ng/L (</=34) Thyroid Stimulating Hormone (TSH) 1.81 uIU/mL (0.55-4.78) Influenza Type A Antigen Negative (Negative) Influenza Type B Antigen Negative (Negative) SARS-CoV-2 Antigen (Rapid) Negative (NEGATIVE) Prothrombin Time 12.8 sec (9.3-11.8) Prothrombin Time INR 1.23 (0.9-1.15) Lactic Acid Level 0.7 mmol/L (0.4-2.0) B-Type Natriuretic Peptide 227.63 pg/mL (0-100) Plasma/Serum Blood Alcohol < 3.0 mg/dL (<10) Test 09/13/24 20:40 Urine Color Colorless (Yellow) Urine Clarity Turbid (Clear) Urine pH 6.0 (5.0-9.0) Urine Specific [place] 1.004 (1.001-1.035) Urine Protein 1+ (Negative) Urine Ketones Negative (Negative) Urine Blood Negative /uL (Negative) Urine Nitrite Negative (Negative) Urine Bilirubin Negative (Negative) Urine Urobilinogen Normal mg/dL (Negative) Urine Leukocyte Esterase 3+ /uL (Negative) Urine RBC 2 /hpf (0 - 4) Urine Microscopic WBC 41 /HPF (0-5) Urine Squamous Epithelial Cells Few /hpf (<5) Urine Bacteria Mod /hpf (None Seen) Urine Sodium 15 mmol/L (40-220) Urine Glucose Normal mg/dL (Normal) Urine Opiates Screen Neg (NEGATIVE) Urine Fentanyl Screen Neg (NEGATIVE) Urine Barbiturates Screen Neg (NEGATIVE) Urine Phencyclidine Screen Neg (NEGATIVE) Urine Amphetamines Screen Neg (NEGATIVE) Urine Benzodiazepines Screen Neg (NEGATIVE) Urine Cocaine Screen Neg (NEGATIVE) Urine Cannabinoids Screen Neg (NEGATIVE) Other Laboratory Tests 09/19/24 04:42 Brief Hx & Hospital Course: wrong pt Discharge Disposition: Home Discharge Instruct/Medications Diet: Cardiac 2g Na,low cholest Activity: No Restrictions, As Tolerated Discharge Statement: "Patient was advised to return to the ER or call 911 if any headaches, dizziness, shortness of breath, chest pain, abdominal pain, bleeding, fevers, or worsening of medical condition. Patient was counseled about treatment plan, medications, possible side effects, patientverbalized understanding. All questions were answered to the best of my ability. This discharge took greater then 30 minutes in planning, reviewing documentation, counseling the patient, and discussing with other team members." ASSESSMENT ASSESSMENT Assessment Date of Service: Sep 19, 2024 Billing Provider: DEWEY GANDHI DO Common Visit Codes: [id number] DISCH DAY >30min DEWEY GANDHI DO Sep 19, 2024 11:29
--- NOTE | 2024-09-19 16:34 | DVHPN2 ---
Assessment/Plan Assessment/Plan progress note subjective covering for dr palomo, seen during rounds, ss for hh and PT, walking >41. dc once service established physical exam aox4 clear breath sounds s1 s2 irregular abdomen soft nontender le edema labs ekg imaging reviewed assessment and plan * Acute on chronic diastolic heart failure: improved * hyponatremia: improved * Diabetes mellitus: ssi * Hypertension: cont meds * Atrial fibrillation with secondary hypercoagulable state: eliquis * Morbid obesity. * Chronic kidney disease, stage III. * left leg cellulitis: iv ancef * uti deconditioning: PT slow transit constipation: miralax senna diet cardiac dvt ppx eliquis Plan discussed with: Patient Date of Service: Sep 19, 2024 Billing Provider: RAFAEL WOLF MD Common Visit Codes: [id number] INP/OBS CARE(MOD) RAFAEL WOLF MD Sep 19, 2024 16:34
[2024-09-20 01:00] VITALS: BP 115/61; PULSE 78; RESP 18; TEMP 97.7; O2SAT 98
[2024-09-20] MEDS: MELATONIN 5 MG TAB PO ONE (01:48)
[2024-09-20 05:00] VITALS: BP 125/67; PULSE 74; RESP 18; TEMP 98.5; O2SAT 94
[2024-09-20] MEDS: IPRATROPIUM BROM 0.5 MG/2.5ML INH SOL ONE (07:11)
--- NOTE | 2024-09-20 07:59 | DVHPN2 ---
Progress Note - Dictate Date Seen: Sep 20, 2024 Medical Necessity Reason Pt with a Central, PICC or Fol: No vital signs Vital Sign Date Time Temp Pulse Resp B/P (MAP) Pulse Ox O2 Delivery O2 Flow Rate FiO2 09/20/24 05:00 98.5 74 18 125/67 (86) 94 98.5 09/19/24 20:00 Room Air* 0 21 Total Intake and Output 09/19/24 09/19/24 09/20/24 15:00 23:00 07:00 Intake Total 480 ml 850 ml 550 ml Output Total 1500 ml 1450 ml Balance 480 ml -650 ml -900 ml medications Current Medications Medications Dose Ordered Sig/Nicholas Route Start Time Stop Time Status Last Admin Dose Admin Acetaminophen/ Hydrocodone Bitart 1 tab Q4HP PRN PO 09/14/24 07:30 Ondansetron HCl 4 mg Q4HP PRN IV 09/14/24 07:30 Acetaminophen 650 mg Q6HP PRN PO 09/14/24 07:30 Diagnostic Test (Pha) 1 strip ACHS 09/14/24 11:30 09/20/24 06:33 1 STRIP Insulin Human Regular ACHS SC 09/14/24 11:30 09/19/24 22:37 2 UNITS Dextrose 50 ml UD PRN IV 09/14/24 09:45 Cefazolin Sodium 50 ml @ 100 mls/hr Q8HR IV 09/14/24 22:00 09/20/24 06:32 100 MLS/HR Apixaban 5 mg BID PO 09/14/24 22:00 09/19/24 22:02 5 MG Atorvastatin Calcium 20 mg HS PO 09/14/24 22:00 09/19/24 22:00 20 MG Diltiazem HCl 120 mg DAILY PO 09/15/24 10:00 09/19/24 10:36 120 MG Metoprolol Tartrate 75 mg BID PO 09/14/24 22:00 09/19/24 22:01 75 MG Benazepril HCl 20 mg BID PO 09/14/24 22:00 09/19/24 22:00 20 MG Hydralazine HCl 50 mg BID PO 09/14/24 22:00 09/19/24 22:00 50 MG Potassium Chloride 100 ml @ 50 mls/hr Q2H IV 09/15/24 09:30 09/15/24 13:29 Cancel Pantoprazole Sodium 40 mg DAILY@0600 PO 09/16/24 06:00 09/20/24 06:32 40 MG Furosemide 40 mg DAILY IV 09/16/24 11:45 09/19/24 10:35 40 MG Potassium Chloride 20 meq DAILY PO 09/16/24 11:45 09/19/24 10:39 20 MEQ laboratory and microbiology Laboratory Tests 09/19/24 04:42 Test 09/19/24 04:42 Range/Units Serum Glucose 97 74-106 mg/dL Assessment/Plan Patient is a 79-year-old female who presented to the hospital with generalized weakness mostly in the legs. She mentions that she felt like the time that she was told she had low sodium and was seen in urgent care and also legs time was seen in [facility] for the same. Patient is found to have hyponatremia. She is also found to have atrial fibrillation and cardiology was involved. Patient is known to our practice from before and outside. Patient does have history of atrial fibrillation for which has had twice ablation done. She is on chronic anticoagulation (Eliquis). Denies chest pains. Denies shortness of breath. Denies palpitations. Denies loss of consciousness. Obese female, not in acute distress. Lying flat in bed. No JVD. Mucosa is pink and wet. No carotid bruit. Lungs are clear to auscultation. Cardiac: Irregular, systolic murmur 2/6 in apex is heard. Abdomen is obese and distended. Bowel sound is positive. There is no tenderness. No hepatomegaly. Dorsalis pedis is 2+ bilateral. Left-sided lower extremity edema is observed. 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 Does have Krause catheter. Echocardiogram of July 07, 2024 revealed ejection fraction of 55%, biatrial enlargement and enlarged right ventricle Hemoglobin: 10.7 - 9.8 - 11.1 Creatinine: 1.22 - 1.18 -1.31 - 1.39 - 1.42 Potassium: 3.6 - 3.2 - 3.6 - 3.5 - 3.6 Sodium: 121 - 131 - 131 - 132 - 132 Troponin (high sensitive): 125 - 121 - 116 BNP: 227.63 TSH: 1.81 D-Dimer: 0.23 Urine analysis was positive for WBCs/it was turbid Urine toxicology was nonrevealing Chest x-ray revealed: IMPRESSION: Mild cardiomegaly and mild pulmonary vascular congestion. No significant change compared to the prior chest x-ray from 07/12/24. Venous Doppler of lower extremities revealed: IMPRESSION: No right or left lower extremity deep venous thrombosis. Renal ultrasound revealed: IMPRESSION: Echogenic renal corticies can be seen with medical renal disease. Bilateral small renal cysts measures 1.7 cm on the right and 2.9 cm on the left. EKG revealed atrial fibrillation with moderate ventricular response, IVCD and old inferior LA Tele reveals atrial fibrillation with moderate ventricular response Echocardiogram reported: lvef 35-40% by visuale stimate. moderate LVH noted. restrictive LV filling, diastolic dysfunction. mild to moderate RV dysfunction notd. left atrium enlarged aortic sclerosis noted (images reviewed: EF around 50% with diffuse hypokinesis and no local wall motion abnormality) Patient is a 79-year-old female who presented with generalized weakness and is found to have hyponatremia. Does have baseline history of atrial fibrillation and the rate is controlled. Is found to have minimally elevated/flat troponin. Acute coronary syndrome is not considered at this point. Abnormal troponin most likely reflects demand physiology in a patient with possible pulmonary hypertension/ heart failure. UTI could have contributed to the clinical picture itself. Echo reported EF of 35 - 40% (images reviewed: EF around 50% with diffuse hypokinesis and no local wall motion abnormality). 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 Cardiac suggestion for management: Manage on telemetry Follow-up electrolytes and kidney function tests and correct abnormalities Long-term continuation of anticoagulation is advised (on Eliquis) Evaluation and management of hyponatremia as per primary team. Nephrology follow up. Cardiac macias, stable Further evaluation and management depends on the above and clinical course A total of 55 minutes was spent reviewing the patient record, examining the patient, making a diagnostic and therapeutic plan, discussing this plan with medical personnel, following up on diagnostic studies and following the patient for clinical stability excluding any and all procedures. At least 50% of this time was spent in direct, [id number] contact. Thank you for allowing me to participate in this patient's care. Further recommendations will depend on patient's clinical course. Please do not hesitate to contact me if you have any questions or concerns. This medical document was created using electronic medical record system with [employer] computerized dictation system. Although this document has been carefully reviewed, there may still be some phonetic and typographical errors. These areas are purely typographical due to the imperfection of the software programs, and do not reflect any compromise in the patient's medical care. Dietary Evaluation Review Comments: 1) CCHO 60 + cardiac 2) Refer to [facility] on DC 3) Continue current plan of care Expected Outcomes/Goals: Pt will meet 75% estimated needs Fu 3-5 days Plan discussed with: Patient, Other (nurse) FRENCH ARVIZU MD Sep 20, 2024 07:59
[2024-09-20 08:00] VITALS: PULSE 80; RESP 18; O2SAT 98
[2024-09-20 09:00] VITALS: BP 110/62; PULSE 74; RESP 20; TEMP 97.6; O2SAT 97
--- NOTE | 2024-09-20 10:44 | DVHDS2 ---
Discharge Summary Date of Admission Sep 14, 2024 at 07:21 Date of Discharge: Sep 19, 2024 Labs/Diagnostic Data: Laboratory Results Test 09/20/24 06:31 09/19/24 04:42 09/15/24 10:43 09/15/24 04:44 POC Glucose 109 mg/dl (70-106) White Blood Count 5.3 10^3/uL (4.4-10.8) Red Blood Count 3.50 10^6/uL (4.0-5.20) Hemoglobin 11.1 g/dL (12.2-16.2) Hematocrit 32.0 % (36.0-46.0) Mean Corpuscular Volume 91.5 fL (80.0-100.0) Mean Corpuscular Hemoglobin 31.7 pg (28.0-32.0) Mean Corpuscular Hemoglobin Concent 34.6 g/dL (32.0-36.0) Red Cell Distribution Width 14.0 % (11.8-14.3) Platelet Count 305 10^3/uL (140-450) Mean Platelet Volume 7.7 fL (6.9-10.8) Neutrophils (%) (Auto) 74.5 % (37.0-80.0) Lymphocytes (%) (Auto) 12.5 % (10.0-50.0) Monocytes (%) (Auto) 10.9 % (0.0-12.0) Eosinophils (%) (Auto) 1.4 % (0.0-7.0) Basophils (%) (Auto) 0.7 % (0.0-2.0) Neutrophils # (Auto) 3.9 10 ^3/uL (1.6-8.6) Lymphocytes # (Auto) 0.7 10 ^3/uL (0.4-5.4) Monocytes # (Auto) 0.6 10 ^3/uL (0-1.3) Eosinophils # (Auto) 0.1 10 ^3/uL (0-0.8) Basophils # (Auto) 0 10 ^3/uL (0-0.2) Nucleated Red Blood Cells 0.1 % Sodium Level 132 mmol/L (136-145) Potassium Level 3.6 mmol/L (3.5-5.1) Chloride Level 96 mmol/L (98-107) Carbon Dioxide Level 26 mmol/L (20-31) Anion Gap 10 (5-15) Blood Urea Nitrogen 28 mg/dL (9-23) Creatinine 1.42 mg/dL (0.550-1.02) Glomerular Filtration Rate Calc 38 mL/min (>90) BUN/Creatinine Ratio 19.7 (10.0-20.0) Serum Glucose 97 mg/dL (74-106) Calcium Level 10.2 mg/dL (8.7-10.4) Phosphorus Level 2.8 mg/dL (2.4-5.1) Magnesium Level 1.9 mg/dL (1.6-2.6) Vitamin D 25-Hydroxy 28.6 ng/mL (30.0-100) Parathyroid Hormone (Intact) 73.4 pg/mL (18.4-80.1) Total Bilirubin 0.4 mg/dL (0.2-1.0) Aspartate Amino Transferase (AST) 33 U/L (13-40) Alanine Aminotransferase (ALT) 17 U/L (7-40) Alkaline Phosphatase 39 U/L (46-116) Total Protein 5.3 g/dL (5.7-8.2) Albumin 3.2 g/dL (3.2-4.8) Test 09/14/24 18:45 09/14/24 07:19 09/13/24 21:18 09/13/24 20:48 D-Dimer, Quantitative 0.23 mg/L FEU (0.0-0.49) Troponin I High Sensitivity 116 ng/L (</=34) Thyroid Stimulating Hormone (TSH) 1.81 uIU/mL (0.55-4.78) Influenza Type A Antigen Negative (Negative) Influenza Type B Antigen Negative (Negative) SARS-CoV-2 Antigen (Rapid) Negative (NEGATIVE) Prothrombin Time 12.8 sec (9.3-11.8) Prothrombin Time INR 1.23 (0.9-1.15) Lactic Acid Level 0.7 mmol/L (0.4-2.0) B-Type Natriuretic Peptide 227.63 pg/mL (0-100) Plasma/Serum Blood Alcohol < 3.0 mg/dL (<10) Test 09/13/24 20:40 Urine Color Colorless (Yellow) Urine Clarity Turbid (Clear) Urine pH 6.0 (5.0-9.0) Urine Specific [place] 1.004 (1.001-1.035) Urine Protein 1+ (Negative) Urine Ketones Negative (Negative) Urine Blood Negative /uL (Negative) Urine Nitrite Negative (Negative) Urine Bilirubin Negative (Negative) Urine Urobilinogen Normal mg/dL (Negative) Urine Leukocyte Esterase 3+ /uL (Negative) Urine RBC 2 /hpf (0 - 4) Urine Microscopic WBC 41 /HPF (0-5) Urine Squamous Epithelial Cells Few /hpf (<5) Urine Bacteria Mod /hpf (None Seen) Urine Sodium 15 mmol/L (40-220) Urine Glucose Normal mg/dL (Normal) Urine Opiates Screen Neg (NEGATIVE) Urine Fentanyl Screen Neg (NEGATIVE) Urine Barbiturates Screen Neg (NEGATIVE) Urine Phencyclidine Screen Neg (NEGATIVE) Urine Amphetamines Screen Neg (NEGATIVE) Urine Benzodiazepines Screen Neg (NEGATIVE) Urine Cocaine Screen Neg (NEGATIVE) Urine Cannabinoids Screen Neg (NEGATIVE) Other Laboratory Tests 09/19/24 04:42 Brief Hx & Hospital Course: see dictated note Condition at Discharge: Fair Final Diagnosis/Problems List a fib Discharge Disposition: Intermediate Facility Discharge Instruct/Medications Diet: Cardiac 2g Na,low cholest Activity: No Restrictions, As Tolerated Follow Up/Referral: fu with pcp/cardiology Medications: per aug Discharge Statement: "Patient was advised to return to the ER or call 911 if any headaches, dizziness, shortness of breath, chest pain, abdominal pain, bleeding, fevers, or worsening of medical condition. Patient was counseled about treatment plan, medications, possible side effects, patientverbalized understanding. All questions were answered to the best of my ability. This discharge took greater then 30 minutes in planning, reviewing documentation, counseling the patient, and discussing with other team members." ASSESSMENT ASSESSMENT Assessment a fib Date of Service: Sep 20, 2024 Billing Provider: CHARLIE TOBIN MD Common Visit Codes: 23596-FKJ/OBS DISCH DAY >30min CHARLIE TOBIN MD Sep 20, 2024 10:44
--- NOTE | 2024-09-20 11:00 | DVHDS ---
DATE OF DISCHARGE: 09/20/2024 DATE OF DISCHARGE TO SNF: 09/20/2024 HISTORY OF PRESENT ILLNESS: The patient is a 79-year-old lady who was admitted with history of generalized weakness and lower extremity swelling. The patient has history of atrial fibrillation, hypertension, diabetes and congestive heart failure. HOSPITAL COURSE: The patient was seen in cardiology consult by Dr. Willams. The patient had x-ray that showed pulmonary venous congestion. The patient's creatinine was elevated at 1.2-1.4. She was seen in Nephrology consult by Dr. Gleason. The patient had Doppler of lower extremity that was negative for DVT. There is redness of the left leg and she was treated with cellulitis. The patient was hyponatremic at admission with a sodium of 121 that improved to 132 at time of discharge. The patient also had evidence of a urinary tract infection. She will now be discharged to a [facility] facility for further treatment. Echocardiogram done showed ejection fraction of 35-40%. FINAL DIAGNOSES: Therefore, * Acute on chronic systolic/diastolic heart failure. * Hyponatremia. * Diabetes mellitus. * Hypertension. * Atrial fibrillation with secondary hypercoagulable state. * Morbid obesity. * Chronic kidney disease, stage III. * Left leg cellulitis. * Urinary tract infection. Time spent in discharge planning including review of plan with the patient and nursing was 39 minutes. MD MARICARMEN Abel/TASHA TID: [id number] RECEIPT: [id number]
[2024-09-20 11:23] VITALS: BP 110/62; PULSE 62
[2024-09-20 12:49] VITALS: BP 127/86; PULSE 104; RESP 18; TEMP 97.7; O2SAT 96
[2024-09-21] MEDS ORDERED: FUROSEMIDE 40 MG TAB PO SCH (10:00)
--- NOTE | 2024-09-22 09:55 | ECG ---
[facility] Test Date: 2024-09-13 Test Time: 18:04:49 Pat Name: GILDARDO MAURER Department: ED Room: 0279 B Gender: F Math Coach: TALYA : 1945 Requested By: VIKRAM MOORE Order Number: [id number] Reading MD: Miguel Jarrett Measurements Intervals [place] Rate: 72 P: 0 CO: 0 QRS: -77 QRSD: 150 T: 78 QT: 431 QTc: 472 Interpretive Statements Atrial fibrillation IVCD, consider atypical RBBB Left ventricular hypertrophy Inferior infarct, old Anterior Q waves, possibly due to LVH Electronically Signed On 09-23-2024 13:31:05 PDT by Miguel Jarrett Please click the below link to view image of tracing.
== END 2024-09-20 14:47 | DRG 280 ==
LOC: EDBD 18:02 → ER 18:15 → OVERFLOW 09-14 07:21 → TELE-WESTW 09-14 23:50 → WEST WING 09-19 21:41
PROVIDERS: ADMIT Internal Medicine; ATTEND Internal Medicine
DX: I13.0 Hypertensive heart and chronic kidney disease with heart failure and stage 1 through stage 4 chronic kidney disease, or unspecified chronic kidney disease (principal); I50.23 Acute on chronic systolic (congestive) heart failure; I21.A1 Myocardial infarction type 2; D68.69 Other thrombophilia; E87.1 Hypo-osmolality and hyponatremia; N17.9 Acute kidney failure, unspecified; N30.00 Acute cystitis without hematuria; L03.116 Cellulitis of left lower limb; D63.1 Anemia in chronic kidney disease; E87.6 Hypokalemia; E83.42 Hypomagnesemia; J84.10 Pulmonary fibrosis, unspecified; I27.20 Pulmonary hypertension, unspecified; F41.9 Anxiety disorder, unspecified; Z20.822 Contact with and (suspected) exposure to COVID-19; K59.01 Slow transit constipation; E11.22 Type 2 diabetes mellitus with diabetic chronic kidney disease; E11.51 Type 2 diabetes mellitus with diabetic peripheral angiopathy without gangrene; N28.1 Cyst of kidney, acquired; K21.9 Gastro-esophageal reflux disease without esophagitis; E04.1 Nontoxic single thyroid nodule; E78.5 Hyperlipidemia, unspecified; N18.30 Chronic kidney disease, stage 3 unspecified; E66.01 Morbid (severe) obesity due to excess calories; I48.91 Unspecified atrial fibrillation; Z79.01 Long term (current) use of anticoagulants; Z79.84 Long term (current) use of oral hypoglycemic drugs; Z79.899 Other long term (current) drug therapy; Z90.710 Acquired absence of both cervix and uterus; Z68.36 Body mass index [BMI] 36.0-36.9, adult; I25.2 Old myocardial infarction; Z80.49 Family history of malignant neoplasm of other genital organs
CPT/HCPCS: 36415; 71045; 76775; 80048; 80053; 80307; 80320; 81001; 82306; 82962; 83605; 83735; 83880; 83970; 84100; 84300; 84443; 84484; 85025; 85379; 85610; 87086; 87426; 87804; 93005; 93306; 93970; 97110; 97116; 97163; 97530; G0378; J1815; J2470; J3480

== ENCOUNTER 2024-10-14 15:50 | Emergency (ER) | payer MEDICARE, BC ==
[~2024-10-14] VITALS: Ht 170.2 cm; Wt 79.5 kg
[~2024-10-14 15:50] MED LIST changes: +APIX5TAB PO; +ASCO500T11 GT; +ASCO500T11 PO; +CHOL200031 PO; +MAGN400T40 PO; +OMEG100062 PO
--- NOTE | 2024-10-14 16:05 | ED.PDOC ---
History of Present Illness HPI Comments 79F BIBA from the [facility] and w/ prior MHx of HTN, AFIB, DM; SHx of Left Shoulder Sx, Ablation, Back Sx, Cholecystectomy, Hysterectomy and the c/c of LE swelling. EMS report that the pt had left LE swelling/redness since today x0400 and was sent out to the ER by Dr. Lackey, to rule out a DVT. the Extremity is tender, pt is able to ambulate but uses a walker and pt's BP on scene was 150/90, 99% RA. Denies chills, fever, N/V/D, SOB, CP or other associated symptom's, modifiers, or recent injuries or sick contact at this time. Time Seen by MD: 15:50 Primary Care Provider: NATASHA Reviewed Notes: Nurses Notes, Size Painter Notes, Medications, Allergies Allergies: Coded Allergies: NO KNOWN ALLERGIES (Unverified , 07/06/24) Home Meds Reported Medications Ascorbic Acid (VITAMIN C TABLET) 500 Mg Tb, 500 MG GT, TAB 09/15/24 Ascorbic Acid (VITAMIN C TABLET) 500 Mg Tb, 2 TAB PO DAILY, #30 TAB 3 Refills 09/15/24 Cholecalciferol (D3) 2,000 Unit Cap, 2000 UNIT PO, CAP 09/15/24 [place]-3 Fatty Acids (Fish Oil) 1,000 Mg Cap, 1000 MG PO, CAP 09/15/24 Magnesium Oxide (MAGNESIUM OXIDE) 400 Mg Tab, 250 MG PO, TAB 09/15/24 Apixaban Base (ELIQUIS) 5 Mg Tab, 1 TAB PO BID 09/14/24 Atorvastatin Calcium (ATORVASTATIN CALCIUM) 20 Mg Tab, 1 TAB PO HS 07/07/24 Diltiazem Hcl (Dilt-Xr) 120 Mg Cap, 1 TAB PO DAILY 07/07/24 Fenofibrate (Fenofibrate) 160 Mg Tab, 1 TAB PO DAILY 07/07/24 Hydralazine Hcl (Hydralazine Hcl) 50 Mg Tab, 1 TAB PO BID 07/07/24 Benazepril Hcl (Benazepril Hcl) 20 Mg Tab, 1 TAB PO BID 07/07/24 Metoprolol Tartrate (Lopressor) 25 Mg Tb, 3 TAB PO BID 07/07/24 Metformin Hydrochloride (Metformin Hcl) 1,000 Mg Tab, 500 MG PO BID 07/07/24 Information Source: Patient, Emergency Med Personnel Mode of Arrival: EMS Severity: Moderate Timing: Hours Duration: Since onset, Hours Prehospital treatment: None Past Medical History PAST MEDICAL HISTORY: AFIB, DM, HTN Surgical History: Cholecystectomy, Hysterectomy Surgical History (Other): Right Shoulder Sx, Back Sx, Ablation LAYOUT ARTIST History: Denies all LAYOUT ARTIST Hx Family History Family History: Reviewed,noncontributory to illness, Family hx of heart latoya Social History Smoker: Non-Smoker Alcohol: Denies ETOH Use Drugs: Denies Drug Use Lives In: Home Constitutional: reports: others (LE Swelling); denies: chills, diaphoresis, fatigue, fever, malaise, sweats, weakness EENTM: denies: blurred vision, double vision, ear bleeding, ear discharge, ear drainage, ear pain, ear ringing, eye pain, eye redness, hearing loss, mouth pain, mouth swelling, nasal discharge, nose bleeding, nose congestion, nose pain, photophobia, tearing, throat pain, throat swelling, voice changes, others Respiratory: denies: cough, hemoptysis, orthopnea, SOB at rest, shortness of breath, SOB with excertion, stridor, wheezing, others Cardiovascular: denies: chest pain, dizzy spells, diaphoresis, Dyspnea on exertion, edema, irregular heart beat, left arm pain, lightheadedness, palpitations, PND, syncope, others Gastrointestinal: denies: abdomen distended, abdominal pain, blood streaked bowels, constipated, diarrhea, dysphagia, difficulty swallowing, hematemesis, melena, nausea, poor appetite, poor fluid intake, rectal bleeding, rectal pain, vomiting, others Genitourinary: denies: abnormal vagina bleeding, burning, dyspareunia, dysuria, flank pain, frequency, hematuria, incontinence, pain, , vagina discharge, urgency, others Neurological: denies: dizziness, fainting, headache, left sided numbness, left sided weakness, numbness, paresthesia, pre-existing deficit, right sided numbness, right sided weakness, seizure, speech problems, tingling, tremors, weakness, others Musculoskeletal: denies: back pain, gout, joint pain, joint swelling, muscle pain, muscle stiffness, neck pain, others Integumetry: denies: bruises, change in color, change in hair/nails, dryness, laceration, lesions, lumps, rash, wounds, others Allergic/Immunocompromised: denies: Difficulty Healing, Frequent Infections, Hives, Itching, others Hematologic/Lymphatic: denies: anemia, blood clots, easy bleeding, easy bruising, swollen glands, others Endocrine: denies: excessive hunger, excessive sweating, excessive thirst, excessive urination, flushing, intolerance to cold, intolerance to heat, unexplained weight gain, unexplained weight loss, others Psychiatric: denies: anxiety, bipolar disorder, depression, hopeless, panic disorder, schizophrenia, sleepless, suicidal, others All Other Systems: Reviewed and Negative Physical Exam General Appearance: Mild Distress HEENT: Normal ENT Inspection, Pharynx Normal, TMs Normal Neck: Full Range of Motion, Non-Tender, Normal, Normal Inspection Respiratory: Chest Non-Tender, Lungs Clear, No Accessory Muscle Use, No Respiratory Distress, Normal Breath Sounds Cardiovascular: No Edema, No JVD, No Murmur, No Gallop, Normal Peripheral Pulses, Regular Rate/Rhythm Breast Exam: Deferred Gastrointestinal: No Organomegaly, Non Tender, No Pulsatile Mass, Normal Bowel Sounds, Soft Genitalia: Deferred Pelvic: Deferred Rectal: Deferred Extremities: No calf tenderness, Normal capillary refill, No pedal edema, Swelling (Left leg swelling) Musculoskeletal : Apperance: Normal Neurologic: Alert, wireless manager II-XII nml as Tested, No Motor Deficits, Normal Affect, Normal Mood, No Sensory Deficits Cerebellar Function: Normal Reflexes: Normal Skin: Dry, Normal Color, Warm Lymphatic: No Adenopathy Was a procedure done? Was a procedure done?: No EKG EKG : Pulse Rate (adult): 86 [place]: Normal Cardiac Rhythm: Afib Block: None ST: Nonsp Differential Dx Considerations may include: DVT, strain, fracture X-Ray, Labs, Meds, VS Vital Signs Date Time Temp Pulse Resp B/P (MAP) Pulse Ox O2 Delivery O2 Flow Rate FiO2 10/14/24 16:34 86 10/14/24 16:28 86 Impression: 1. No left femoropopliteal venous thrombosis. The patient is being discharged We spoke with the patient's primary care doctor and he will follow up with the patient as an outpatient Images Reviewed?: Images reviewed and evaluated by me Time of 1ST Reevaluation: 16:20 Reevaluation 1ST: Unchanged Patient Education/Counseling: Diagnosis, Treatment, Prognosis Family Education/Counseling: No Family Present Departure 1 Departure Time of Disposition: 18:28 Impression: Primary Impression: Left leg swelling Disposition: 01 HOME / SELF CARE / HOMELESS Condition: Fair Discharged With: Self Critical Care Note Critical Care Time?: No Stability Stability form required: No Heart Score Heart Score: Heart Score Response (Comments) Value History N/A 0 EKG N/A 0 Age N/A 0 Risk Factors N/A 0 Troponin N/A 0 Total 0 I personally scribed for ALYCIA RUIZ MD (EVELYNSCURT) on 10/14/24 at 16:05. Electronically submitted by Blaise Larry ([employer]). I personally scribed for ALYCIA RUIZ MD (PREMAPASCURT) on 10/14/24 at 16:44. Electronically submitted by Blaise Larry ([employer]). I personally scribed for ALYCIA RUIZ MD (PREMAPASLE) on 10/14/24 at 17:36. Electronically submitted by Blaise Larry ([employer]). ALYCIA RUIZ MD October 14, 2024 16:05
--- NOTE | 2024-10-14 17:10 | DVH ---
Left lower extremity venous duplex Clinical History: swelling to left leg Comparison: US BILAT LOWER DVT on DOS: 09/14/24 Technique: Duplex Doppler evaluation of the deep venous system of the left lower extremity from the common femor al vein to the popliteal vein including color Doppler and spectral/pulsed waveform analysis was perfo rmed. Findings: The common femoral vein demonstrates appropriate compressibility and waveform variability. There is compressibility/patency of the great saphenous vein at the proximal thigh. The femoral vein demonstrates appropriate compressibility and waveform variability. The deep femoral vein demonstrates appropriate compressibility and waveform variability. The popliteal vein demonstrates appropriate compressibility and waveform variability. There is normal compressibility at the tibioperoneal trunk. Impression: 1. No left femoropopliteal venous thrombosis.
[2024-10-15 05:00] VITALS: PULSE 83; RESP 13; O2SAT 96
[2024-10-15 08:00] VITALS: PULSE 89; RESP 12; O2SAT 97
[2024-10-15 14:00] VITALS: BP 120/69; PULSE 79; RESP 12; TEMP 98; O2SAT 97
--- NOTE | 2024-10-17 13:12 | ECG ---
[facility] Test Date: 2024-10-14 Test Time: 16:28:57 Pat Name: GILDARDO MAURER Department: ED Room: Gender: F Compensation Manager: ELIO : 1945 Requested By: ALYCIA RUIZ Order Number: [id number] Reading MD: Measurements Intervals [place] Rate: 86 P: 0 KS: 0 QRS: -70 QRSD: 135 T: 61 QT: 407 QTc: 487 Interpretive Statements Atrial fibrillation Left bundle branch block Please click the below link to view image of tracing.
== END 2024-10-15 15:50 | disposition home or self-care (01) ==
LOC: EDBD 15:50 → ER 15:55
DX: R22.32 Localized swelling, mass and lump, left upper limb (principal); I10 Essential (primary) hypertension; E11.9 Type 2 diabetes mellitus without complications; I48.91 Unspecified atrial fibrillation; Z90.49 Acquired absence of other specified parts of digestive tract; Z90.710 Acquired absence of both cervix and uterus; Z79.01 Long term (current) use of anticoagulants; Z79.84 Long term (current) use of oral hypoglycemic drugs; Z79.899 Other long term (current) drug therapy; Z98.890 Other specified postprocedural states
CPT/HCPCS: 93005; 93971

== ENCOUNTER 2024-10-28 17:19 | Inpatient (IN) | payer MEDICARE, BC ==
[~2024-10-28] VITALS: Ht 162.6 cm; Wt 95.3 kg
--- NOTE | 2024-10-28 17:45 | ED.PDOC ---
Musculoskeletal HPI Comments This patient is a pleasant but morbidly obese 79-year-old female who was [facility] for [facility] evaluation of left shoulder and left arm pain concerns status post ground level fall two weeks ago. Patient apparently was in the shower when she fell and landed on her left shoulder and arm. Patient's primary care provider is Dr. Lackey and he contacted nursing staff and advised admission of the patient for MRI evaluation. Patient denies any fever nausea or vomiting. Vital signs were stable at arrival. Chief Complaint: Upper Extremity Time Seen by MD: 17:40 Primary Care Provider: ROSS Reviewed Notes: Nurses Notes, Chenille Machine Operator Notes, Medications, Allergies Allergies: Coded Allergies: NO KNOWN ALLERGIES (Unverified , 07/06/24) Home Meds Reported Medications Ascorbic Acid (VITAMIN C TABLET) 500 Mg Tb, 500 MG GT, TAB 09/15/24 Ascorbic Acid (VITAMIN C TABLET) 500 Mg Tb, 2 TAB PO DAILY, #30 TAB 3 Refills 09/15/24 Cholecalciferol (D3) 2,000 Unit Cap, 2000 UNIT PO, CAP 09/15/24 [place]-3 Fatty Acids (Fish Oil) 1,000 Mg Cap, 1000 MG PO, CAP 09/15/24 Magnesium Oxide (MAGNESIUM OXIDE) 400 Mg Tab, 250 MG PO, TAB 09/15/24 Apixaban Base (ELIQUIS) 5 Mg Tab, 1 TAB PO BID 09/14/24 Atorvastatin Calcium (ATORVASTATIN CALCIUM) 20 Mg Tab, 1 TAB PO HS 07/07/24 Diltiazem Hcl (Dilt-Xr) 120 Mg Cap, 1 TAB PO DAILY 07/07/24 Fenofibrate (Fenofibrate) 160 Mg Tab, 1 TAB PO DAILY 07/07/24 Hydralazine Hcl (Hydralazine Hcl) 50 Mg Tab, 1 TAB PO BID 07/07/24 Benazepril Hcl (Benazepril Hcl) 20 Mg Tab, 1 TAB PO BID 07/07/24 Metoprolol Tartrate (Lopressor) 25 Mg Tb, 3 TAB PO BID 07/07/24 Metformin Hydrochloride (Metformin Hcl) 1,000 Mg Tab, 500 MG PO BID 07/07/24 Information Source: Patient, Emergency Med Personnel Mode of Arrival: EMS Location: Left Extremity Location: Arm, Shoulder Timing: Days Prehospital treatment: None Severity: Moderate Able to Move Extremity: No Bear Weight: Limited Pain: Moderate Mechanism: Other (Mechanical fall) Circumstances: Fall Onset of Symptoms: After Trauma Symptoms: Swelling, Pain DVT Risk Factors: NONE Associated signs and symptoms: Shoulder pain, Arm pain Past Medical History PAST MEDICAL HISTORY: AFIB, DM, HTN Surgical History: Cholecystectomy, Hysterectomy ENTRY LEVEL 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 History: Denies all ENTRY LEVEL 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 Hx Family History Family History: Reviewed,noncontributory to illness, Family hx of heart latoya Social History Smoker: Non-Smoker Alcohol: Denies ETOH Use Drugs: Denies Drug Use Lives In: Home Constitutional: denies: chills, diaphoresis, fatigue, fever, malaise, sweats, weakness, others EENTM: denies: blurred vision, double vision, ear bleeding, ear discharge, ear drainage, ear pain, ear ringing, eye pain, eye redness, hearing loss, mouth pain, mouth swelling, nasal discharge, nose bleeding, nose congestion, nose maribell n, photophobia, tearing, throat pain, throat swelling, voice changes, others Respiratory: denies: cough, hemoptysis, orthopnea, SOB at rest, shortness of breath, SOB with excertion, stridor, wheezing, others Cardiovascular: denies: chest pain, dizzy spells, diaphoresis, Dyspnea on exertion, edema, irregular heart beat, left arm pain, lightheadedness, palpitations, PND, syncope, others Gastrointestinal: denies: abdomen distended, abdominal pain, blood streaked bowels, constipated, diarrhea, dysphagia, difficulty swallowing, hematemesis, melena, nausea, poor appetite, poor fluid intake, rectal bleeding, rectal pain, vomiting, others Genitourinary: denies: abnormal vagina bleeding, burning, dyspareunia, dysuria, flank pain, frequency, hematuria, incontinence, pain, , vagina discharge, urgency, others Neurological: denies: dizziness, fainting, headache, left sided numbness, left sided weakness, numbness, paresthesia, pre-existing deficit, right sided numbness, right sided weakness, seizure, speech problems, tingling, tremors, weakness, others Musculoskeletal: reports: others (Left arm and shoulder pain); denies: back pain, gout, joint pain, joint swelling, muscle pain, muscle stiffness, neck pain Integumetry: denies: bruises, change in color, change in hair/nails, dryness, laceration, lesions, lumps, rash, wounds, others Allergic/Immunocompromised: denies: Difficulty Healing, Frequent Infections, Hives, Itching, others Hematologic/Lymphatic: denies: anemia, blood clots, easy bleeding, easy bruising, swollen glands, others Endocrine: denies: excessive hunger, excessive sweating, excessive thirst, excessive urination, flushing, intolerance to cold, intolerance to heat, unexplained weight gain, unexplained weight loss, others Psychiatric: denies: anxiety, bipolar disorder, depression, hopeless, panic disorder, schizophrenia, sleepless, suicidal, others All Other Systems: Reviewed and Negative Physical Exam General Appearance: Moderate Distress ([id number] distress due to left- sided shoulder and arm pain concerns.), Obese HEENT: Normal ENT Inspection, Pharynx Normal, TMs Normal Neck: Full Range of Motion, Non-Tender, Normal, Normal Inspection Respiratory: Chest Non-Tender, Lungs Clear, No Accessory Muscle Use, No Respiratory Distress, Normal Breath Sounds Cardiovascular: No Edema, No JVD, No Murmur, No Gallop, Normal Peripheral Pulses, Regular Rate/Rhythm Breast Exam: Deferred Gastrointestinal: No Organomegaly, Non Tender, No Pulsatile Mass, Normal Bowel Sounds, Soft Genitalia: Deferred Pelvic: Deferred Rectal: Deferred Extremities: Normal capillary refill, No pedal edema Musculoskeletal : Apperance: Normal Neurologic: Alert, Normal Affect, Normal Mood Cerebellar Function: NOT DONE Reflexes: NOT DONE Skin: Dry, Normal Color, Warm Lymphatic: No Adenopathy Was a procedure done? Was a procedure done?: No Differential Diagnosis EXT Differential Diagnosis: Fracture, Sprain, Dislocation, Contusion, Strain X-Ray, Labs, Meds, VS Vital Signs Date Time Temp Pulse Resp B/P (MAP) Pulse Ox O2 Delivery O2 Flow Rate FiO2 10/28/24 17:28 97.7 75 16 139/43 (75) 98 97.7 Current Medications Medications (Trade) Dose Ordered Sig/Nicholas Route Start Time Stop Time Status Last Admin Acetaminophen/ Hydrocodone Bitart ([place] 5/325MG Tab) 1 tab ONCE ONCE PO 10/28/24 17:45 10/28/24 17:46 DC 10/28/24 18:36 X-Ray, Labs, Meds, VS Comment Patient will not receive imaging studies tonight. Laboratories were pending at time of this note. Patient will be admitted for imaging study evaluation in the a.m.. Time of 1ST Reevaluation: 18:44 Reevaluation 1ST: Improved Consultation: PCP Patient Education/Counseling: Diagnosis, Treatment Family Education/Counseling: Diagnosis, Treatment, No Family Present Departure 1 Departure Time of Disposition: 18:45 Impression: Primary Impression: Acute shoulder pain due to trauma Additional Impression: Pain of upper arm after trauma Disposition: ADMITTED INPATIENT Condition: Fair Discharged With: Self Critical Care Note Critical Care Time?: No Stability Stability form required: No Heart Score Heart Score: Heart Score Response (Comments) Value History N/A 0 EKG N/A 0 Age N/A 0 Risk Factors N/A 0 Troponin N/A 0 Total 0 I personally scribed for FRENCH WELCH PAC ([email or web address]) on 10/28/24 at 17:45. Electronically submitted by Brenden Gil ([email or web address]). FRENCH WELCH PAC October 28, 2024 17:45
[2024-10-28] MEDS: HYDROcodone-ACET 5/325MG TAB PO ONE (18:36)
[2024-10-28 18:54] VITALS: PULSE 81; RESP 17; O2SAT 99
[2024-10-28 19:13] LABS: Basophils # (auto) 0 10 ^3/uL (0-0.2); Basophils % (auto) 0.5 % (0.0-2.0); Eosinophils # (auto) 0.1 10 ^3/uL (0-0.8); Eosinophils % (auto) 1.4 % (0.0-7.0); Hematocrit 34.6 % (36.0-46.0); Hemoglobin 11.4 g/dL (12.2-16.2); Lymphocytes # (auto) 1.1 10 ^3/uL (0.4-5.4); Lymphocytes % (auto) 23.8 % (10.0-50.0); Mean Corpuscular Hemoglobin 30.6 pg (28.0-32.0); Mean Corpuscular Hgb Conc. 32.9 g/dL (32.0-36.0); Mean Corpuscular Volume 93.1 fL (80.0-100.0); Monocytes # (auto) 0.4 10 ^3/uL (0-1.3); Monocytes % (auto) 7.7 % (0.0-12.0); Neutrophils # (auto) 3.2 10 ^3/uL (1.6-8.6); Neutrophils % (auto) 66.6 % (37.0-80.0); Platelet Count (auto) 286 10^3/uL (140-450); Red Blood Cells 3.71 10^6/uL (4.0-5.20); Red Cell Distribution Width 14.1 % (11.8-14.3); White Blood Cell 4.7 10^3/uL (4.4-10.8)
[2024-10-28 19:28] LABS: Alanine Aminotransferase 27 U/L (7-40); Albumin 3.9 g/dL (3.2-4.8); Alkaline Phosphatase 84 U/L (46-116); Anion Gap 10 (5-15); BUN/Creatinine Ratio 21.2 (10.0-20.0); Bilirubin, Total 0.4 mg/dL (0.2-1.0); Carbon Dioxide 26 mmol/L (20-31); Chloride 103 mmol/L (98-107); Potassium 4.2 mmol/L (3.5-5.1); Sodium 139 mmol/L (136-145); Total Protein 6.5 g/dL (5.7-8.2)
[2024-10-28 19:29] LABS: Aspartate Aminotransferase 45 U/L (13-40); Blood Urea Nitrogen 38 mg/dL (9-23); Calcium 10.6 mg/dL (8.7-10.4); Glucose 125 mg/dL (74-106)
[2024-10-28 19:30] VITALS: PULSE 70; RESP 18; O2SAT 96
[2024-10-28 20:29] LABS: Urine Bacteria MANY /hpf (None Seen); Urine Blood Negative /uL (Negative); Urine Clarity Clear (Clear); Urine Color Colorless (Yellow); Urine Protein, UAD 1+ (Negative); Urine Specific Gravity 1.005 (1.001-1.035); Urine Squamous Epithelial Cell FEW /hpf (<5); Urine Urobilinogen Normal (Negative); Urine WBC 19 /HPF (0-5); Urine pH 5.5 (5.0-9.0)
[2024-10-28] MEDS ORDERED: NITROGLYCERIN 0.4 MG SL TAB SL PRN (21:45)
[2024-10-28] MEDS ORDERED: ACETAMINOPHEN 325 MG TAB PO PRN (21:45)
[2024-10-28] MEDS ORDERED: DOCUSATE SOD 100 MG CAP PO PRN (21:45)
[2024-10-28] MEDS ORDERED: ATORVASTATIN 20 MG TAB PO ONE (22:00)
[2024-10-28] MEDS ORDERED: cefTRIAXone 2GM/50ML D5W 50 ML IV ONE (22:00)
[2024-10-28] MEDS ORDERED: ATORVASTATIN 20 MG TAB PO SCH (22:00)
[2024-10-28] MEDS: SODIUM CHLOR 0.9% PF (SALINE LOCK) 10ML VIAL/SYR IV SCH (22:00)
[2024-10-28] MEDS ORDERED: VANCOMYCIN PER PHARMACY 0 MG IV SCH (22:00)
--- NOTE | 2024-10-28 22:18 | DVH ---
CLINICAL INDICATION: fall TECHNIQUE: 1 radiographic views of the pelvis were obtained. Comparison: None FINDINGS/IMPRESSION: Fracture of the superior pubic symphysis on the left The visualized joint space is well maintained. The alignment is anatomical. There is no radiopaque foreign body.
--- NOTE | 2024-10-28 22:32 | DVH ---
Bilateral lower extremity venous duplex Clinical History: B/L Leg swelling Comparison: US LT LOWER DVT on DOS: 10/14/24, US BILAT LOWER DVT on DOS: 09/14/24 Findings: Duplex Doppler evaluation of the deep venous systems of both lower extremities from the common femora l veins to the popliteal veins including color Doppler and spectral/pulsed waveform analysis was perf ormed. RIGHT SIDE: The common femoral vein demonstrates appropriate compressibility and waveform variability. There is compressibility/patency of the great saphenous vein at the proximal thigh. The femoral vein demonstrates appropriate compressibility and waveform variability. The deep femoral vein demonstrates appropriate compressibility and waveform variability. The popliteal vein demonstrates appropriate compressibility and waveform variability. There is normal compressibility at the tibioperoneal trunk. LEFT SIDE: The common femoral vein demonstrates appropriate compressibility and waveform variability. There is compressibility/patency of the great saphenous vein at the proximal thigh. The femoral vein demonstrates appropriate compressibility and waveform variability. The deep femoral vein demonstrates appropriate compressibility and waveform variability. The popliteal vein demonstrates appropriate compressibility and waveform variability. There is normal compressibility at the tibioperoneal trunk. IMPRESSION: 1. No right or left femoropopliteal venous thrombosis. 2. If clinical concern/symptoms persist or worsen, short-interval follow-up study is suggested. 3. END IMPRESSION:
[2024-10-28] MEDS: PANTOPRAZOLE 40 MG TAB PO ONE (22:35)
[2024-10-28] MEDS: METOPROLOL TARTRATE 25 MG TAB PO SCH (22:35)
[2024-10-28] MEDS: APIXABAN 5 MG TAB PO SCH (22:35)
[2024-10-28] MEDS: ASPirin 81 mg TAB PO ONE (22:36)
--- NOTE | 2024-10-28 22:53 | DVHHP2 ---
History of Present Illness History of Present Illness Patient is 79 years old female with past medical history of atrial fibrillation history of cardiac ablation, hypertension, diabetes mellitus type 2, CKD stage 3, heart failure, obesity was brought in from [place] [facility] with a complaint of fall and left arm and left shoulder pain. As per patient she had a fall 2 weeks before at [facility] on her right side but she breast her left arm and he has been having pain since then, initially the pain in the left shoulder was 10/10, today 7/10, patient also endorsed the pain in the right hip joint. Patient also reported her left leg has been swollen for a while. Patient denied any chest pain, shortness of breath, dizziness or fever, dysarthria. Patient was recently discharged from [facility] on 09/24/2024 with a diagnosis of heart failure. Initial lab workup revealed elevated troponin 140> 141, BNP 238, serum creatinine 1.79, BUN 38, GFR 29, urinalysis revealed UTI with leukocyte esterase 1+, WBC 19, bacteria many. COVID and Flu Negative. Doppler study Lower study of the lower extremity negative for DVT. X-ray pelvis revealed-Fracture of the superior pubic symphysis on the left. CXR- No acute abnormality identified. Mild cardiomegaly. X-ray of the left shoulder-No evidence of fracture or dislocation. Past Medical History atrial fibrillation history of cardiac ablation, hypertension, diabetes mellitus type 2, CKD stage 3, heart failure, obesity Past Surgical History Cholecystectomy, hysterectomy Past Social History , denies smoking/alcoholism/drug abuse Review of Systems Review of Systems Allergy- NKDA Patient was seen today at the bedside. Cardiovascular- deny acute chest pain or shortness of breath or cough or palp itation Respiratory denies cough or short of breath or wheezing Gastrointestinal- denies any rectal bleeding, nausea or vomiting Musculoskeletal-left leg chronic swelling Neurological- denies acute dysarthria, dysphagia, change in vision Psychiatry- denies depression or SI or HI Skin- denies acute rash or purpura Allergies: Coded Allergies: NO KNOWN ALLERGIES (Unverified , 07/06/24) Medications Current Medications Medications Dose Ordered Sig/Nicholas Route Start Time Stop Time Status Last Admin Dose Admin Sodium Chloride 10 ml Q8HR IV 10/28/24 22:00 10/28/24 22:00 10 ML Docusate Sodium 100 mg BIDPRN PRN PO 10/28/24 21:45 Acetaminophen 650 mg Q6HP PRN PO 10/28/24 21:45 Nitroglycerin 0.4 mg Q5MINP PRN SL 10/28/24 21:45 Apixaban 5 mg BID PO 10/28/24 22:00 10/28/24 22:35 5 MG Ascorbic Acid 1,000 mg DAILY PO 10/29/24 10:00 Diltiazem HCl 120 mg DAILY PO 10/29/24 10:00 Metoprolol Tartrate 75 mg BID PO 10/28/24 22:00 10/28/24 22:35 75 MG Benazepril HCl 20 mg BID PO 10/29/24 10:00 Patient Own Medication 1 tab DAILY PO 10/29/24 10:00 UNV Hydralazine HCl 50 mg BID PO 10/29/24 10:00 Aspirin 81 mg DAILY PO 10/29/24 10:00 Atorvastatin Calcium 40 mg HS PO 10/28/24 22:00 UNV Vancomycin HCl 0 ml @ 0 mls/hr UD IV 10/28/24 22:00 UNV Pantoprazole Sodium 40 mg DAILY@0600 PO 10/29/24 06:00 Vancomycin HCl 200 ml @ 200 mls/hr Q1H IV 10/28/24 22:15 10/29/24 00:14 10/28/24 22:36 200 MLS/HR Ceftriaxone Sodium 50 ml @ 100 mls/hr DAILY@09 IV 10/29/24 09:00 UNV Atorvastatin Calcium 40 mg HS PO 10/29/24 22:00 UNV Exam Vital Signs Vital Signs Date Time Temp Pulse Resp B/P (MAP) Pulse Ox O2 Delivery O2 Flow Rate FiO2 10/28/24 22:35 72 160/74 10/28/24 19:30 98.1 18 96 98.1 10/28/24 19:30 Room Air* 0 21 Exam General examination- awake, alert, oriented, conversant HEENT- PEERLA, no acute nasal discharge Cardiovascular- S1-S2 audible, rate and rhythm regular, no murmur Respiratory- CTAB, no wheeze or rhonchi Gastrointestinal-nontender, bowel sound+. Nondistended Musculoskeletal-no acute joint swelling or tenderness or redness Lower extremity- left leg swollen++, redness, erythema, Neurological- cranial nerves intact, no acute dysarthria or dysphagia Psychiatry- denies depression or SI or HI Skin- no acute rash or purpura Labs/Xrays Labs Test 10/28/24 22:28 10/28/24 21:46 10/28/24 19:49 10/28/24 18:45 Range/Units D-Dimer, Quantitative 0.30 0.0-0.49 mg/L FEU Troponin I High Sensitivity 135 *H </=34 ng/L Thyroid Stimulating Hormone (TSH) 2.20 0.55-4.78 uIU/mL Urine Color Colorless Yellow Urine Clarity Clear Clear Urine pH 5.5 5.0-9.0 Urine Specific [place] 1.005 1.001-1.035 Urine Protein 1+ H Negative Urine Ketones Negative Negative Urine Blood Negative Negative /uL Urine Nitrite Negative Negative Urine Bilirubin Negative Negative Urine Urobilinogen Normal Negative mg/dL Urine Leukocyte Esterase 1+ Negative /uL Urine RBC 1 0 - 4 /hpf Urine Microscopic WBC 19 H 0-5 /HPF Urine Squamous Epithelial Cells Few <5 /hpf Urine Bacteria Many H None Seen /hpf Urine Glucose Normal Normal mg/dL White Blood Count 4.7 4.4-10.8 10^3/uL Red Blood Count 3.71 L 4.0-5.20 10^6/uL Hemoglobin 11.4 L 12.2-16.2 g/dL Hematocrit 34.6 L 36.0-46.0 % Mean Corpuscular Volume 93.1 80.0-100.0 fL Mean Corpuscular Hemoglobin 30.6 28.0-32.0 pg Mean Corpuscular Hemoglobin Concent 32.9 32.0-36.0 g/dL Red Cell Distribution Width 14.1 11.8-14.3 % Platelet Count 286 140-450 10^3/uL Mean Platelet Volume 7.5 6.9-10.8 fL Neutrophils (%) (Auto) 66.6 37.0-80.0 % Lymphocytes (%) (Auto) 23.8 10.0-50.0 % Monocytes (%) (Auto) 7.7 0.0-12.0 % Eosinophils (%) (Auto) 1.4 0.0-7.0 % Basophils (%) (Auto) 0.5 0.0-2.0 % Neutrophils # (Auto) 3.2 1.6-8.6 10 ^3/uL Lymphocytes # (Auto) 1.1 0.4-5.4 10 ^3/uL Monocytes # (Auto) 0.4 0-1.3 10 ^3/uL Eosinophils # (Auto) 0.1 0-0.8 10 ^3/uL Basophils # (Auto) 0 0-0.2 10 ^3/uL Nucleated Red Blood Cells 0.0 % Sodium Level 139 136-145 mmol/L Potassium Level 4.2 3.5-5.1 mmol/L Chloride Level 103 98-107 mmol/L Carbon Dioxide Level 26 20-31 mmol/L Anion Gap 10 5-15 Blood Urea Nitrogen 38 H 9-23 mg/dL Creatinine 1.79 H 0.550-1.02 mg/dL Glomerular Filtration Rate Calc 29 >90 mL/min BUN/Creatinine Ratio 21.2 H 10.0-20.0 Serum Glucose 125 H 74-106 mg/dL Calcium Level 10.6 H 8.7-10.4 mg/dL Total Bilirubin 0.4 0.2-1.0 mg/dL Aspartate Amino Transferase (AST) 45 H 13-40 U/L Alanine Aminotransferase (ALT) 27 7-40 U/L Alkaline Phosphatase 84 46-116 U/L Total Protein 6.5 5.7-8.2 g/dL Albumin 3.9 3.2-4.8 g/dL Assessment/Plan Assessment/Plan Assessment and plan Fall Left shoulder and left arm pain-rule out fracture Fracture of the superior pubic symphysis on the left Bilateral leg swelling, left> right-rule out DVT Left leg cellulitis Heart failure ERNESTO on CKD NSTEMI type 2 likely demand lead ischemia Acute complicated cystitis Atrial fibrillation, status post cardiac ablation Hypertension Diabetes mellitus type 2 CKD stage 3 Echo on 07/07/2024 [id number] RV enlarged, biatrial enlargement elevated troponin 140> 141, BNP 238, serum creatinine 1.79, BUN 38, GFR 29, urinalysis revealed UTI with leukocyte esterase 1+, WBC 19, bacteria many. Doppler study Lower study of the lower extremity negative for DVT. X-ray pelvis revealed-Fracture of the superior pubic symphysis on the left. CXR- No acute abnormality identified. Mild cardiomegaly. X-ray of the left shoulder-No evidence of fracture or dislocation. Plan Ordered Doppler study of the bilateral lower extremity-negative for DVT Ordered Unasyn and vancomycin Ordered Bumex 1 mg IV b.i.d. Ordered blood culture, urine culture Pending MRI of the left shoulder and left humerus tomorrow morning ReStarted home medication atorvastatin, Cardizem, benazepril, metoprolol, Eliquis Ordered orthopedic consult Goals of care, Code status ; discussed with >15 minutes PUD prophylaxis: Pantoprazole DVT prophylaxis: Eliquis Plan discussed with Dr. Hawkins , nursing staff, Total time spent on patient evaluation, chart review, assessment and plan, disc ussion discussion >35 minutes Plan discussed with: Patient, Other (RN) My Orders Orders - CROW GUILLORY RESIDENT Procedure Category Date Status Time Admit ADMIT 10/28/24 Transmitted 21:44 Code Status CODE 10/28/24 Transmitted 21:44 Renal DIET 10/29/24 Transmitted Standard(2gna,3gk,Lopho) Breakfast Sodium Chloride Lock PHA 10/28/24 In Process (Saline Lock Ns) 22:00 Docusate Sodium PHA 10/28/24 In Process Capsule (Colace 21:45 Complete Blood Count LAB 10/29/24 Verified 04:00 Comprehensive LAB 10/29/24 Verified Metabolic Panel 04:00 Cardiac DIET 10/29/24 Transmitted Diet-2gna,Lofat,Lochol Breakfast Acetaminophen Tablet PHA 10/28/24 In Process (Tylenol Tablet) 21:45 Nitroglycerin PHA 10/28/24 In Process Sublingual (Ntrostat 21:45 Notify Md Of Changes ALEIDA 10/28/24 In Process From Base 21:44 Lockstitch Pocket Setter For ALEIDA 10/28/24 In Process 24 Hours 21:44 Apixaban (Eliquis) PHA 10/28/24 In Process 22:00 Ascorbic Acid Tablet PHA 10/29/24 In Process (Vitamin C Tablet) 10:00 Diltiazem Er Capsule PHA 10/29/24 In Process (Cardizem Er Capsul 10:00 Metoprolol Tartrate PHA 10/28/24 In Process Tablet (Lopressor Ta 22:00 (Nf) Fenofibrate PHA 10/29/24 Pending 10:00 Electrocardigram EKG 10/28/24 Logged 21:49 Bilat Lower Dvt US 10/28/24 Resulted 21:49 Aspirin Tablet PHA 10/29/24 In Process 10:00 Atorvastatin (Lipitor) PHA 10/28/24 Pending 22:00 Ceftriaxone 1gm/50ml PHA 10/28/24 Pending D5w (Rocephin) 22:00 Vancomycin Per PHA 10/28/24 Pending Pharmacy 22:00 Urine Bacterial TONYA 10/28/24 In Process Culture 21:49 Blood Culture TONYA 10/28/24 In Process 21:49 Pantoprazole Tablet PHA 10/29/24 In Process (Protonix Tablet) 06:00 Covid19 Antigen Karen LAB 10/28/24 In Process Rapid Influenza A&B LAB 10/28/24 In Process 21:53 Pelvis Ap XY 10/28/24 Resulted 21:54 Vancomycin 1gm/200ml PHA 10/28/24 In Process Pm 22:15 Benazepril Hcl Tablet PHA 10/29/24 In Process (Lotensin Tablet) 10:00 Hydralazine Hcl PHA 10/29/24 In Process Tablet (Apresoline 10:00 Ceftriaxone 1gm/50ml PHA 10/29/24 Logged D5w (Rocephin) 09:00 Atorvastatin (Lipitor) PHA 10/29/24 Logged 22:00 B-Type Natriuretic LAB 10/28/24 In Process Peptide 22:27 Chest Xray 1 View XY 10/28/24 Logged 22:27 L Shoulder 2+ View XY 10/28/24 Logged Xray 22:27 Sodium Chloride 0.9% PHA 10/28/24 In Process 22:30 Date of Service: October 28, 2024 Billing Provider: ALLEN HAWKINS MD Common Visit Codes: [id number] INP/OBS CARE (HIGH) Secondary Visit Codes: [id number] CARE PLAN 30 MINUTES CROW GUILLORY RESIDENT October 28, 2024 22:53
[2024-10-28 23:05] LABS: COVID19 ANTIGEN SOFIA FIA NEGATIVE (NEGATIVE); Rapid Influenza A Negative (Negative); Rapid Influenza B Negative (Negative)
--- NOTE | 2024-10-28 23:21 | DVH ---
CHEST RADIOGRAPH Indication: CHF Technique: Single frontal view of the chest was obtained COMPARISON: XY CHEST XRAY 1 VIEW on DOS: 09/13/24 FINDINGS: Lines and Tubes: None Lungs: Clear. Pleura: No effusion. No pneumothorax. Cardiomediastinal contours: Mild cardiomegaly. IMPRESSION: No acute abnormality identified. Mild cardiomegaly.
[2024-10-28] MEDS: ATORVASTATIN 20 MG TAB PO ONE (23:30)
[2024-10-28] MEDS: cefTRIAXone 1GM/50ML D5W 50 ML IV ONE (23:57)
[2024-10-28 23:58] VITALS: BP 128/72; PULSE 76; RESP 18; TEMP 97.7; O2SAT 94
[2024-10-29] VITALS (10 sets, daily range): BP systolic 110–143; BP diastolic 46–87; PULSE 67–87; RESP 18–20; TEMP 96.9–98; O2SAT 94–99
--- NOTE | 2024-10-29 00:10 | DVH ---
CLINICAL INDICATION: FALL, SHOULDER PIAN TECHNIQUE: XY L SHOULDER 2+ VIEW XRAY Comparison: None FINDINGS / IMPRESSION: No evidence of fracture or dislocation.
[2024-10-29] MEDS: SODIUM CHLORIDE 0.9% 500 ML IV ONE (00:33)
[2024-10-29] MEDS: PANTOPRAZOLE 40 MG TAB PO SCH (05:10)
[2024-10-29 06:02] LABS: Basophils # (auto) 0 10 ^3/uL (0-0.2); Basophils % (auto) 0.6 % (0.0-2.0); Eosinophils # (auto) 0.1 10 ^3/uL (0-0.8); Eosinophils % (auto) 2.1 % (0.0-7.0); Hematocrit 30.4 % (36.0-46.0); Lymphocytes # (auto) 1.1 10 ^3/uL (0.4-5.4); Lymphocytes % (auto) 27.2 % (10.0-50.0); Mean Corpuscular Hemoglobin 30.6 pg (28.0-32.0); Mean Corpuscular Volume 92.6 fL (80.0-100.0); Monocytes # (auto) 0.4 10 ^3/uL (0-1.3); Monocytes % (auto) 8.6 % (0.0-12.0); Neutrophils # (auto) 2.5 10 ^3/uL (1.6-8.6); Neutrophils % (auto) 61.5 % (37.0-80.0); Platelet Count (auto) 253 10^3/uL (140-450); Red Blood Cells 3.28 10^6/uL (4.0-5.20); White Blood Cell 4.1 10^3/uL (4.4-10.8)
[2024-10-29 06:21] LABS: Alanine Aminotransferase 22 U/L (7-40); Albumin 3.4 g/dL (3.2-4.8); Alkaline Phosphatase 49 U/L (46-116); Anion Gap 11 (5-15); Aspartate Aminotransferase 36 U/L (13-40); BUN/Creatinine Ratio 18.5 (10.0-20.0); Calcium 10.1 mg/dL (8.7-10.4); Carbon Dioxide 25 mmol/L (20-31); Chloride 104 mmol/L (98-107); Glucose 93 mg/dL (74-106); Sodium 140 mmol/L (136-145)
[2024-10-29 06:22] LABS: Bilirubin, Total 0.4 mg/dL (0.2-1.0)
[2024-10-29 06:26] LABS: Blood Urea Nitrogen 32 mg/dL (9-23); Potassium 3.3 mmol/L (3.5-5.1); Total Protein 5.7 g/dL (5.7-8.2)
[2024-10-29] MEDS: BUMETANIDE 1mg/4ml VIAL (0.25mg/ml) IV ONE (07:30)
[2024-10-29] MEDS: AMPICILLIN & SULBACTAM SODIUM 3 GM in SODIUM CHL 0.9% 100 ML IV SCH (08:09)
--- NOTE | 2024-10-29 09:43 | DVHINCON2 ---
Date of service: October 29, 2024 History of Present Illness HPI 79-year-old female presented to the hospital from skilled nurse facility to have imaging of left shoulder. Reportedly, the patient had a mechanical fall in the shower around2 weeks ago. She denies loss of consciousness and dizziness. She mentions that she could not reach out to a handle [place] while in the shower and fell. As there has been some left shoulder pain since then, the patient is transferred for possible MRI of the shoulder. She also mentions occasional left leg swelling (long-term). Cardiology was involved for cardiac aspects of care. Patient is known to our practice from before. Patient does have history of atrial fibrillation for which has had twice ablation done (back on long- term/persistent atrial fibrillation). She is on chronic anticoagulation (Eliquis). Denies chest pains. Denies shortness of breath. Denies palpitations. Denies loss of consciousness. Home Meds Reported Medications Ascorbic Acid (VITAMIN C TABLET) 500 Mg Tb, 500 MG GT, TAB 09/15/24 Ascorbic Acid (VITAMIN C TABLET) 500 Mg Tb, 2 TAB PO DAILY, #30 TAB 3 Refills 09/15/24 Cholecalciferol (D3) 2,000 Unit Cap, 2000 UNIT PO, CAP 09/15/24 Mora-3 Fatty Acids (Fish Oil) 1,000 Mg Cap, 1000 MG PO, CAP 09/15/24 Magnesium Oxide (MAGNESIUM OXIDE) 400 Mg Tab, 250 MG PO, TAB 09/15/24 Apixaban Base (ELIQUIS) 5 Mg Tab, 1 TAB PO BID 09/14/24 Atorvastatin Calcium (ATORVASTATIN CALCIUM) 20 Mg Tab, 1 TAB PO HS 07/07/24 Diltiazem Hcl (Dilt-Xr) 120 Mg Cap, 1 TAB PO DAILY 07/07/24 Fenofibrate (Fenofibrate) 160 Mg Tab, 1 TAB PO DAILY 07/07/24 Hydralazine Hcl (Hydralazine Hcl) 50 Mg Tab, 1 TAB PO BID 07/07/24 Benazepril Hcl (Benazepril Hcl) 20 Mg Tab, 1 TAB PO BID 07/07/24 Metoprolol Tartrate (Lopressor) 25 Mg Tb, 3 TAB PO BID 07/07/24 Metformin Hydrochloride (Metformin Hcl) 1,000 Mg Tab, 500 MG PO BID 07/07/24 Past Medical History Others Past medical history includes: Morbid obesity, diabetes mellitus, hypertension, hyperlipidemia, chronic atrial fibrillation, status post repeated atrial fibrillation (PVI) ablation, on chronic anticoagulation, diastolic heart failure, pulmonary fibrosis, pulmonary hypertension, pulmonary fibrosis, chronically (mildly) elevated high sensitive troponin, history of stress-induced cardiomyopathy, anemia, GERD, CKD, anxiety disorder, peripheral artery disease, thyroid nodule, history of Toussaint's cyst in lower extremity, chronic left leg edema and old history of hysterectomy/cholecystectomy. Patient Family History: Cervical cancer 19 CHILD FHx: heart disease G8 MOTHER, , Age: 60 years and older G8 FATHER, , Age: 60 years and older Alocohol: None Drugs: None Lives with: Long-Term Review of Systems Constitutional: No symptom reported Eyes: No symptom reported Pulmonary/Respiratory: No symptom reported Cardiovascular: No symptom reported All Other Systems Fourteen point review of system was performed. Relevant findings as per above and as per HPI. Otherwise negative. H&P Exam Vital Signs Vital Signs Date Time Temp Pulse Resp B/P (MAP) Pulse Ox O2 Delivery O2 Flow Rate FiO2 10/29/24 07:30 143/78 10/29/24 05:00 97.9 71 18 95 97.9 10/29/24 00:24 Room Air* 0 21 General Appeara: Well developed, Obese Head Exam: Normal inspection Neck Exam: Normal inspection Eye Exam: bilateral eye PERRL Mouth: Normal Inspection Pulmonary/Respiratory: Lungs clear Cardiovascular/Chest: Normal inspection, Systolic murmur, Irregularly irregular Peripheral Pulses: 2+ carotid (R), 2+ carotid (L), 2+ femoral (R), 2+ femoral (L) Abdominal Exam: Normal bowel sounds, Soft Labs/Xrays Labs Test 10/29/24 05:26 10/28/24 22:28 10/28/24 21:46 10/28/24 19:49 Range/Units White Blood Count 4.1 L 4.4-10.8 10^3/uL Red Blood Count 3.28 L 4.0-5.20 10^6/uL Hemoglobin 10.0 L 12.2-16.2 g/dL Hematocrit 30.4 #L 36.0-46.0 % Mean Corpuscular Volume 92.6 80.0-100.0 fL Mean Corpuscular Hemoglobin 30.6 28.0-32.0 pg Mean Corpuscular Hemoglobin Concent 33.0 32.0-36.0 g/dL Red Cell Distribution Width 14.0 11.8-14.3 % Platelet Count 253 140-450 10^3/uL Mean Platelet Volume 7.4 6.9-10.8 fL Neutrophils (%) (Auto) 61.5 37.0-80.0 % Lymphocytes (%) (Auto) 27.2 10.0-50.0 % Monocytes (%) (Auto) 8.6 0.0-12.0 % Eosinophils (%) (Auto) 2.1 0.0-7.0 % Basophils (%) (Auto) 0.6 0.0-2.0 % Neutrophils # (Auto) 2.5 1.6-8.6 10 ^3/uL Lymphocytes # (Auto) 1.1 0.4-5.4 10 ^3/uL Monocytes # (Auto) 0.4 0-1.3 10 ^3/uL Eosinophils # (Auto) 0.1 0-0.8 10 ^3/uL Basophils # (Auto) 0 0-0.2 10 ^3/uL Nucleated Red Blood Cells 0.0 % Sodium Level 140 136-145 mmol/L Potassium Level 3.3 L 3.5-5.1 mmol/L Chloride Level 104 98-107 mmol/L Carbon Dioxide Level 25 20-31 mmol/L Anion Gap 11 5-15 Blood Urea Nitrogen 32 H 9-23 mg/dL Creatinine 1.73 H 0.550-1.02 mg/dL Glomerular Filtration Rate Calc 30 >90 mL/min BUN/Creatinine Ratio 18.5 10.0-20.0 Serum Glucose 93 74-106 mg/dL Calcium Level 10.1 8.7-10.4 mg/dL Total Bilirubin 0.4 0.2-1.0 mg/dL Aspartate Amino Transferase (AST) 36 13-40 U/L Alanine Aminotransferase (ALT) 22 7-40 U/L Alkaline Phosphatase 49 46-116 U/L Total Protein 5.7 5.7-8.2 g/dL Albumin 3.4 3.2-4.8 g/dL Influenza Type A Antigen Negative Negative Influenza Type B Antigen Negative Negative SARS-CoV-2 Antigen (Rapid) Negative NEGATIVE D-Dimer, Quantitative 0.30 0.0-0.49 mg/L FEU Troponin I High Sensitivity 135 *H </=34 ng/L Thyroid Stimulating Hormone (TSH) 2.20 0.55-4.78 uIU/mL Urine Color Colorless Yellow Urine Clarity Clear Clear Urine pH 5.5 5.0-9.0 Urine Specific [place] 1.005 1.001-1.035 Urine Protein 1+ H Negative Urine Ketones Negative Negative Urine Blood Negative Negative /uL Urine Nitrite Negative Negative Urine Bilirubin Negative Negative Urine Urobilinogen Normal Negative mg/dL Urine Leukocyte Esterase 1+ Negative /uL Urine RBC 1 0 - 4 /hpf Urine Microscopic WBC 19 H 0-5 /HPF Urine Squamous Epithelial Cells Few <5 /hpf Urine Bacteria Many H None Seen /hpf Urine Glucose Normal Normal mg/dL Test 10/28/24 18:45 Range/Units B-Type Natriuretic Peptide 235.88 0-100 pg/mL Assessment/Plan Plan 79-year-old female presented to the hospital from skilled nurse facility to have imaging of left shoulder. Reportedly, the patient had a mechanical fall in the shower around2 weeks ago. She denies loss of consciousness and dizziness. She mentions that she could not reach out to a handle [place] while in the shower and fell. As there has been some left shoulder pain since then, the patient is transferred for possible MRI of the shoulder. She also mentions occasional left leg swelling (long-term). Cardiology was involved for cardiac aspects of care. Patient is known to our practice from before. Patient does have history of atrial fibrillation for which has had twice ablation done (back on long- term/persistent atrial fibrillation). She is on chronic anticoagulation (Eliquis). Denies chest pains. Denies shortness of breath. Denies palpi tations. Denies loss of consciousness. Obese female, not in acute distress. Lying flat in bed. No JVD. Mucosa is pink and wet. No carotid bruit. Lungs are clear to auscultation. Cardiac: Irregular, systolic murmur 2/6 in apex is heard. Abdomen is obese and distended. Bowel sound is positive. There is no tenderness. No hepatomegaly. Dorsalis pedis is 2+ bilateral. Left-sided lower extremity edema is observed. 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 Echocardiogram of July 07, 2024 revealed ejection fraction of 55%, biatrial enlargement and enlarged right ventricle Echocardiogram of September 15, 2024 (performed in [facility]) reported moderate concentric left ventricular hypertrophy, restrictive LV filling, [id number] right ventricular dysfunction, left atrial enlargement, aortic stenosis (images reviewed: EF around 50% with diffuse hypokinesis and no local wall motion abnormality, no aortic stenosis) Hemoglobin: 11.4 - 10.0 D-dimer: 0.30 (within normal limits) Creatinine: 1.79 - 1.73 Potassium: 4.2 - 3.3 Troponin (high sensitive): 140 - 141 - 135 BNP: 235.88 Urinalysis was positive for bacteria/white blood cell Chest x-ray revealed: IMPRESSION: No acute abnormality identified. Mild cardiomegaly. Venous Doppler of lower extremities revealed: IMPRESSION: 1. No right or left femoropopliteal venous thrombosis. 2. If clinical concern/symptoms persist or worsen, short-interval follow-up study is suggested. Pelvic x-ray reported: Fracture of the superior pubic symphysis on the left The visualized joint space is well maintained. The alignment is anatomical. There is no radiopaque foreign body. Left shoulder x-ray reported: FINDINGS / IMPRESSION: No evidence of fracture or dislocation. Tele reveals atrial fibrillation with moderate ventricular response Patient is a 79-year-old female who presented with left shoulder pain after mechanical fall. No loss of consciousness. No dizziness. Does have baseline history of diastolic heart failure and chronic atrial fibrillation. Heart rate is controlled. Has been kept on Eliquis as outpatient. Previously had history of stress-induced cardiomyopathy. Does have chronically elevated (mildly) troponin. Troponin was mildly elevated and flat. Presentation is more in favor of demand ischemia. ACS is not considered. Mildly acute on chronic diastolic heart failure can be considered. Mechanical fall Left shoulder pain Chronically left leg edema Left superior pubic symphysis fracture UTI Acute on chronic diastolic heart failure Morbid obesity Poor functional capacity Abnormal troponin, chronic Persistent atrial fibrillation Anemia, chronic Pulmonary hypertension/pulmonary fibrosis, history Cellulitis of left lower extremities? Cardiac suggestion for management: Manage on telemetry IV diuresis (on Bumex) Follow-up electrolytes and kidney function tests and correct abnormalities. Keep potassium above 4 and magnesium above Long-term continuation of anticoagulation is advised (on Eliquis). You can hold/stop aspirin ACS is not considered Evaluation and management of sepsis/UTI as per primary team Evaluation and management of possible pubic fracture as per primary team Imaging of left shoulder as per primary Thank you for consultation Further evaluation and management depends on the above and clinical course A total of 75 minutes was spent reviewing the patient record, examining the patient, making a diagnostic and therapeutic plan, discussing this plan with medical personnel, following up on diagnostic studies and following the patient for clinical stability excluding any and all procedures. At least 50% of this time was spent in direct, [id number] contact. Thank you for allowing me to participate in this patient's care. Further recommendations will depend on patient's clinical course. Please do not hesitate to contact me if you have any questions or concerns. This medical document was created using electronic medical record system with [employer] computerized dictation system. Although this document has been carefully reviewed, there may still be some phonetic and typographical errors. These areas are purely typographical due to the imperfection of the software programs, and do not reflect any compromise in the patient's medical care. Plan discussed with: Patient, Other (nurse) FRENCH ARVIZU MD October 29, 2024 09:43
[2024-10-29] MEDS ORDERED: ASPirin 81 mg TAB PO SCH (10:00)
[2024-10-29] MEDS: BENAZEPRIL HCL 10 MG TAB PO SCH (11:52)
[2024-10-29] MEDS: hydrALAZINE HCL 25 MG TAB PO SCH (11:52)
[2024-10-29] MEDS: ASCORBIC ACID 500 MG TAB PO SCH (11:53)
[2024-10-29] MEDS: dilTIAZem 120MG ER CAP PO SCH (11:53)
[2024-10-29] MEDS: POTASSIUM CHL 20 Meq TABLET PO ONE (11:54)
--- NOTE | 2024-10-29 12:35 | DVH ---
CLINICAL INDICATION: Left shoulder/arm pain status post fall COMPARISON: Radiographs of the left shoulder performed on 10/28/2024. TECHNIQUE: Multiplanar, multisequence MRI of the left shoulder was performed without contrast. Contrast: None FINDINGS: Images degraded by motion but still of diagnostic value. Glenohumeral joint: There is no fracture or bone marrow edema. Alignment is maintained. Complete l oss of the articular cartilage of the humeral head in the glenoid. Glenohumeral joint space narrowin g. Enthesopathic cysts in the superolateral humeral head. There is glenohumeral joint effusion. No synovitis. Acromioclavicular joint: The acromioclavicular joint is narrowed with capsular hypertrophy. Type 1 a cromion. Rotator cuff and bursae: There is severe supraspinatus tendinopathy. There is a full-thickness tear at the anterior footprint which measures 1.6 cm. There is infraspinatus tendinopathy and partial-thic kness articular sided tear. Severe subscapularis tendinopathy and fraying of the cranial most fibers. Teres minor tendon is intact There is no significant regional muscle atrophy. Fluid decompress es freely into the subacromial subdeltoid bursa through the full-thickness tear from the glenohumeral joint. Biceps tendon and glenoid labrum: The long head biceps tendon subluxated medially from the bicipital groove. There is extensive fluid distention of the tendon sheath. Diffuse degeneration of the labru m with paucity of labral tissue suggestive of prior tears in the anterior portions of the labrum. IMPRESSION: 1. Motion degraded study. No acute fracture or dislocation. 2. Multifocal rotator cuff tendinopathy. Focal full-thickness supraspinatus tear measuring 1.6 cm. P artial-thickness infraspinatus tear. 3. Medial subluxation of the proximal long head biceps tendon and tenosynovitis. 4. Anterior labral degeneration with suspected chronic tears. 5. Subacromial subdeltoid fluid.
[2024-10-29] MEDS ORDERED: BUMETANIDE 1mg/4ml VIAL (0.25mg/ml) IV SCH (18:00)
--- NOTE | 2024-10-29 20:10 | DVHPN2 ---
Subjective 79-year-old female who fell 2 weeks ago at [facility] and she has been complaining of left shoulder pain and right leg pain Here evaluation shows fracture of the left superior pubic rami No other injuries She has a history of atrial fibrillation status post ablation, heart failure, hypertension, chronic kidney disease, type 2 diabetes Changes from previous H/P or p: Changes Objective Vitals Vital Signs Date Time Temp Pulse Resp B/P (MAP) Pulse Ox O2 Delivery O2 Flow Rate FiO2 10/29/24 17:00 96.9 69 18 121/64 (83) 99 96.9 10/29/24 08:00 Room Air* 0 21 Intake/Output Intake and Output 10/29/24 07:00 Intake Total 1250 ml Balance 1250 ml Intake Oral 800 ml IV Total 450 ml # Voids 3 General Appearance: Alert, Oriented X3, Cooperative Lungs: Clear to auscultation, Normal air movement Cardiovascular: Regular rate, Normal S1, Normal S2 Abdomen: Normal bowel sounds, Soft, No tenderness Extremities: No edema Medications Current Medications Medications Dose Ordered Sig/Nicholas Route Start Time Stop Time Status Last Admin Dose Admin Sodium Chloride 10 ml Q8HR IV 10/28/24 22:00 10/29/24 14:00 10 ML Docusate Sodium 100 mg BIDPRN PRN PO 10/28/24 21:45 Acetaminophen 650 mg Q6HP PRN PO 10/28/24 21:45 Nitroglycerin 0.4 mg Q5MINP PRN SL 10/28/24 21:45 Apixaban 5 mg BID PO 10/28/24 22:00 10/29/24 11:53 5 MG Ascorbic Acid 1,000 mg DAILY PO 10/29/24 10:00 10/29/24 11:53 1,000 MG Diltiazem HCl 120 mg DAILY PO 10/29/24 10:00 10/29/24 11:53 120 MG Metoprolol Tartrate 75 mg BID PO 10/28/24 22:00 10/29/24 11:54 75 MG Benazepril HCl 20 mg BID PO 10/29/24 10:00 10/29/24 11:52 20 MG Patient Own Medication 1 tab HS PO 10/29/24 22:00 Hydralazine HCl 50 mg BID PO 10/29/24 10:00 10/29/24 11:52 50 MG Vancomycin HCl 0 ml @ 0 mls/hr UD IV 10/28/24 22:00 Pantoprazole Sodium 40 mg DAILY@0600 PO 10/29/24 06:00 10/29/24 05:10 40 MG Ceftriaxone Sodium 50 ml @ 100 mls/hr DAILY@2100 IV 10/29/24 21:00 Cancel Atorvastatin Calcium 40 mg HS PO 10/29/24 22:00 Ampicillin Sodium/ Sulbactam Sodium 3 gm/Sodium Chloride 100 ml @ 100 mls/hr Q12H IV 10/29/24 07:30 10/29/24 19:49 100 MLS/HR Bumetanide 1 mg DAILY IV 10/30/24 10:00 Laboratory Results Laboratory Tests 10/29/24 05:26 Chemistry Test 10/29/24 05:26 Albumin 3.4 g/dL (3.2-4.8) Calcium Level 10.1 mg/dL (8.7-10.4) Total Protein 5.7 g/dL (5.7-8.2) Coagulation Test 10/28/24 21:46 D-Dimer, Quantitative 0.30 mg/L FEU (0.0-0.49) LFT Test 10/29/24 05:26 Alanine Aminotransferase (ALT) 22 U/L (7-40) Alkaline Phosphatase 49 U/L (46-116) Aspartate Amino Transferase (AST) 36 U/L (13-40) Total Bilirubin 0.4 mg/dL (0.2-1.0) HgA1c, TSH Test 10/28/24 21:46 Thyroid Stimulating Hormone (TSH) 2.20 uIU/mL (0.55-4.78) Urinalysis Test 10/28/24 19:49 Urine Color Colorless (Yellow) Urine Clarity Clear (Clear) Urine pH 5.5 (5.0-9.0) Urine Specific [place] 1.005 (1.001-1.035) Urine Protein 1+ (Negative) H Urine Ketones Negative (Negative) Urine Blood Negative /uL (Negative) Urine Nitrite Negative (Negative) Urine Bilirubin Negative (Negative) Urine Urobilinogen Normal mg/dL (Negative) Urine Leukocyte Esterase 1+ /uL (Negative) Urine RBC 1 /hpf (0 - 4) Urine Microscopic WBC 19 /HPF (0-5) H Urine Squamous Epithelial Cells Few /hpf (<5) Urine Bacteria Many /hpf (None Seen) H Urine Glucose Normal mg/dL (Normal) Microbiology Microbiology Date/Time Source Procedure Growth Status 10/29/24 01:00 Nose MRSA Screen - Final Complete 10/28/24 19:49 Voided Urine Urine Culture - Preliminary Resulted Assessment/Plan Assessment/Plan Status post fall Left superior pubic ramus fracture History of CHF Hypertension Type 2 diabetes Chronic kidney disease Paroxysmal atrial fibrillation Left leg cellulitis Hypokalemia Plan Physical therapy evaluation Continue IV antibiotics Replace potassium Resume the home medications Sliding scale regular insulin for diabetes control Full code Advance directives discussed for 19 minutes Plan discussed with: Patient My Orders Orders - ADE MCLAUGHLIN MD Procedure Category Date Status Time Pt Request For Service PT 10/29/24 Logged 10:33 Date of Service: October 29, 2024 Billing Provider: ADE MCLAUGHLIN MD Common Visit Codes: [id number] INP/OBS CARE(HIGH) Secondary Visit Codes: [id number] CARE PLAN 30 MINUTES ADE MCLAUGHLIN MD October 29, 2024 20:10
[2024-10-29] MEDS ORDERED: cefTRIAXone 1GM/50ML D5W 50 ML IV SCH (21:00)
[2024-10-29] MEDS: Fenofibrate 160 MG TABLET PO SCH (21:43)
[2024-10-29] MEDS: ATORVASTATIN 20 MG TAB PO SCH (21:43)
[2024-10-30] VITALS (8 sets, daily range): BP systolic 103–140; BP diastolic 49–69; PULSE 68–88; RESP 17–20; TEMP 97.3–97.8; O2SAT 96–99
[2024-10-30 07:58] LABS: Basophils # (auto) 0 10 ^3/uL (0-0.2); Basophils % (auto) 0.6 % (0.0-2.0); Eosinophils # (auto) 0.1 10 ^3/uL (0-0.8); Eosinophils % (auto) 1.8 % (0.0-7.0); Hematocrit 32.3 % (36.0-46.0); Hemoglobin 10.8 g/dL (12.2-16.2); Lymphocytes # (auto) 0.9 10 ^3/uL (0.4-5.4); Lymphocytes % (auto) 19.3 % (10.0-50.0); Mean Corpuscular Hgb Conc. 33.4 g/dL (32.0-36.0); Mean Corpuscular Volume 92.8 fL (80.0-100.0); Monocytes # (auto) 0.4 10 ^3/uL (0-1.3); Monocytes % (auto) 8.4 % (0.0-12.0); Neutrophils # (auto) 3.2 10 ^3/uL (1.6-8.6); Neutrophils % (auto) 69.9 % (37.0-80.0); Nucleated Red Blood Cells % 0.1 %; Platelet Count (auto) 262 10^3/uL (140-450); Red Blood Cells 3.48 10^6/uL (4.0-5.20); Red Cell Distribution Width 14.2 % (11.8-14.3); White Blood Cell 4.5 10^3/uL (4.4-10.8)
[2024-10-30 07:59] LABS: Chloride 106 mmol/L (98-107); Potassium 3.9 mmol/L (3.5-5.1); Sodium 141 mmol/L (136-145)
[2024-10-30 08:00] LABS: Anion Gap 11 (5-15); Carbon Dioxide 24 mmol/L (20-31)
[2024-10-30 08:05] LABS: BUN/Creatinine Ratio 17.2 (10.0-20.0); Glucose 105 mg/dL (74-106)
[2024-10-30 08:07] LABS: Blood Urea Nitrogen 32 mg/dL (9-23)
[2024-10-30] MEDS: BUMETANIDE 1mg/4ml VIAL (0.25mg/ml) IV SCH (09:41)
--- NOTE | 2024-10-30 11:59 | DVHPN2 ---
Subjective Ambulating well with PT Complains of left shoulder pain MRI of the left shoulder shows rotator cuff tear Changes from previous H/P or p: Changes Objective Vitals Vital Signs Date Time Temp Pulse Resp B/P (MAP) Pulse Ox O2 Delivery O2 Flow Rate FiO2 10/30/24 11:23 131/85 10/30/24 11:22 74 10/30/24 08:48 97.5 18 97 97.5 10/30/24 08:00 Room Air* 0 21 Intake/Output Intake and Output 10/30/24 07:00 Intake Total 2600 ml Balance 2600 ml Intake Oral 2500 ml IV Total 100 ml # Voids 6 General Appearance: Alert, Oriented X3, Cooperative Lungs: Clear to auscultation, Normal air movement Cardiovascular: Regular rate, Normal S1, Normal S2 Abdomen: Normal bowel sounds, Soft, No tenderness Extremities: No edema Medications Current Medications Medications Dose Ordered Sig/Nicholas Route Start Time Stop Time Status Last Admin Dose Admin Sodium Chloride 10 ml Q8HR IV 10/28/24 22:00 10/30/24 08:16 10 ML Docusate Sodium 100 mg BIDPRN PRN PO 10/28/24 21:45 Acetaminophen 650 mg Q6HP PRN PO 10/28/24 21:45 Nitroglycerin 0.4 mg Q5MINP PRN SL 10/28/24 21:45 Apixaban 5 mg BID PO 10/28/24 22:00 10/30/24 09:41 5 MG Ascorbic Acid 1,000 mg DAILY PO 10/29/24 10:00 10/30/24 09:41 1,000 MG Diltiazem HCl 120 mg DAILY PO 10/29/24 10:00 10/30/24 11:22 120 MG Metoprolol Tartrate 75 mg BID PO 10/28/24 22:00 10/30/24 09:42 75 MG Benazepril HCl 20 mg BID PO 10/29/24 10:00 10/30/24 11:23 20 MG Patient Own Medication 1 tab HS PO 10/29/24 22:00 Hydralazine HCl 50 mg BID PO 10/29/24 10:00 10/30/24 11:22 50 MG Vancomycin HCl 0 ml @ 0 mls/hr UD IV 10/28/24 22:00 Pantoprazole Sodium 40 mg DAILY@0600 PO 10/29/24 06:00 10/30/24 05:45 40 MG Ceftriaxone Sodium 50 ml @ 100 mls/hr DAILY@2100 IV 10/29/24 21:00 Cancel Atorvastatin Calcium 40 mg HS PO 10/29/24 22:00 10/29/24 21:43 40 MG Ampicillin Sodium/ Sulbactam Sodium 3 gm/Sodium Chloride 100 ml @ 100 mls/hr Q12H IV 10/29/24 07:30 10/30/24 08:16 100 MLS/HR Bumetanide 1 mg DAILY IV 10/30/24 10:00 10/30/24 09:41 1 MG Laboratory Results Laboratory Tests 10/30/24 07:19 Chemistry Test 10/30/24 07:19 Calcium Level 10.0 mg/dL (8.7-10.4) Urinalysis Test 10/28/24 19:49 Urine Color Colorless (Yellow) Urine Clarity Clear (Clear) Urine pH 5.5 (5.0-9.0) Urine Specific [place] 1.005 (1.001-1.035) Urine Protein 1+ (Negative) H Urine Ketones Negative (Negative) Urine Blood Negative /uL (Negative) Urine Nitrite Negative (Negative) Urine Bilirubin Negative (Negative) Urine Urobilinogen Normal mg/dL (Negative) Urine Leukocyte Esterase 1+ /uL (Negative) Urine RBC 1 /hpf (0 - 4) Urine Microscopic WBC 19 /HPF (0-5) H Urine Squamous Epithelial Cells Few /hpf (<5) Urine Bacteria Many /hpf (None Seen) H Urine Glucose Normal mg/dL (Normal) Microbiology Microbiology Date/Time Source Procedure Growth Status 10/29/24 01:00 Nose MRSA Screen - Final Complete 10/28/24 22:27 Blood Blood Culture - Preliminary NO GROWTH AFTER 24 HOURS OF INCUBATION. Resulted 10/28/24 19:49 Voided Urine Urine Culture - Preliminary Resulted Assessment/Plan Assessment/Plan Status post fall Left superior pubic ramus fracture History of CHF Hypertension Type 2 diabetes Chronic kidney disease Paroxysmal atrial fibrillation Left leg cellulitis Hypokalemia Left shoulder rotator cuff tear Plan Physical therapy evaluation Continue IV antibiotics Replace potassium Resume the home medications Sliding scale regular insulin for diabetes control Full code Advance directives discussed for 19 minutes 10/30/2024: Continue physical therapy Left shoulder rotator cuff tear: Consult Orthopedic surgery Left superior pubic ramus fracture: Conservative management with pain management and PT Monitor closely The rest of the management will depend on the hospital course Plan discussed with: Patient Date of Service: October 30, 2024 Billing Provider: ADE MCLAUGHLIN MD Common Visit Codes: [id number] INP/OBS CARE(HIGH) ADE MCLAUGHLIN MD October 30, 2024 11:59
--- NOTE | 2024-10-30 12:15 | DVHPN2 ---
Progress Note - Dictate Date Seen: October 30, 2024 Medical Necessity Reason Pt with a Central, PICC or Fol: No vital signs Vital Sign Date Time Temp Pulse Resp B/P (MAP) Pulse Ox O2 Delivery O2 Flow Rate FiO2 10/30/24 11:23 131/85 10/30/24 11:22 74 10/30/24 08:48 97.5 18 97 97.5 10/30/24 08:00 Room Air* 0 21 Total Intake and Output 10/29/24 10/29/24 10/30/24 15:00 23:00 07:00 Intake Total 900 ml 900 ml 800 ml Balance 900 ml 900 ml 800 ml medications Current Medications Medications Dose Ordered Sig/Nicholas Route Start Time Stop Time Status Last Admin Dose Admin Sodium Chloride 10 ml Q8HR IV 10/28/24 22:00 10/30/24 08:16 10 ML Docusate Sodium 100 mg BIDPRN PRN PO 10/28/24 21:45 Acetaminophen 650 mg Q6HP PRN PO 10/28/24 21:45 Nitroglycerin 0.4 mg Q5MINP PRN SL 10/28/24 21:45 Apixaban 5 mg BID PO 10/28/24 22:00 10/30/24 09:41 5 MG Ascorbic Acid 1,000 mg DAILY PO 10/29/24 10:00 10/30/24 09:41 1,000 MG Diltiazem HCl 120 mg DAILY PO 10/29/24 10:00 10/30/24 11:22 120 MG Metoprolol Tartrate 75 mg BID PO 10/28/24 22:00 10/30/24 09:42 75 MG Benazepril HCl 20 mg BID PO 10/29/24 10:00 10/30/24 11:23 20 MG Patient Own Medication 1 tab HS PO 10/29/24 22:00 Hydralazine HCl 50 mg BID PO 10/29/24 10:00 10/30/24 11:22 50 MG Vancomycin HCl 0 ml @ 0 mls/hr UD IV 10/28/24 22:00 Pantoprazole Sodium 40 mg DAILY@0600 PO 10/29/24 06:00 10/30/24 05:45 40 MG Ceftriaxone Sodium 50 ml @ 100 mls/hr DAILY@2100 IV 10/29/24 21:00 Cancel Atorvastatin Calcium 40 mg HS PO 10/29/24 22:00 10/29/24 21:43 40 MG Ampicillin Sodium/ Sulbactam Sodium 3 gm/Sodium Chloride 100 ml @ 100 mls/hr Q12H IV 10/29/24 07:30 10/30/24 08:16 100 MLS/HR Bumetanide 1 mg DAILY IV 10/30/24 10:00 10/30/24 09:41 1 MG laboratory and microbiology Laboratory Tests 10/30/24 07:19 Test 10/30/24 07:19 Range/Units Serum Glucose 105 74-106 mg/dL Assessment/Plan 79-year-old female presented to the hospital from skilled nurse facility to have imaging of left shoulder. Reportedly, the patient had a mechanical fall in the shower around2 weeks ago. She denies loss of consciousness and dizziness. She mentions that she could not reach out to a handle [place] while in the shower and fell. As there has been some left shoulder pain since then, the patient is transferred for possible MRI of the shoulder. She also mentions occasional left leg swelling (long-term). Cardiology was involved for cardiac aspects of care. Patient is known to our practice from before. Patient does have history of atrial fibrillation for which has had twice ablation done (back on long- term/persistent atrial fibrillation). She is on chronic anticoagulation (Eliquis). Denies chest pains. Denies shortness of breath. Denies palpitations. Denies loss of consciousness. Obese female, not in acute distress. Lying flat in bed. No JVD. Mucosa is pink and wet. No carotid bruit. Lungs are clear to auscultation. Cardiac: Irregular, systolic murmur 2/6 in apex is heard. Abdomen is obese and distended. Bowel sound is positive. There is no tenderness. No hepatomegaly. Dorsalis pedis is 2+ bilateral. Left-sided lower extremity edema is observed. 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 Echocardiogram of July 07, 2024 revealed ejection fraction of 55%, biatrial enlargement and enlarged right ventricle Echocardiogram of September 15, 2024 (performed in [facility]) reported moderate concentric left ventricular hypertrophy, restrictive LV filling, [id number] right ventricular dysfunction, left atrial enlargement, aortic stenosis (images reviewed: EF around 50% with diffuse hypokinesis and no local wall motion abnormality, no aortic stenosis) Hemoglobin: 11.4 - 10.0 - 10.8 D-dimer: 0.30 (within normal limits) Creatinine: 1.79 - 1.73 - 1.83 Potassium: 4.2 - 3.3 - 3.9 Troponin (high sensitive): 140 - 141 - 135 BNP: 235.88 TSH: 2.20 Urinalysis was positive for bacteria/white blood cell Chest x-ray revealed: IMPRESSION: No acute abnormality identified. Mild cardiomegaly. Venous Doppler of lower extremities revealed: IMPRESSION: 1. No right or left femoropopliteal venous thrombosis. 2. If clinical concern/symptoms persist or worsen, short-interval follow-up study is suggested. Pelvic x-ray reported: Fracture of the superior pubic symphysis on the left The visualized joint space is well maintained. The alignment is anatomical. There is no radiopaque foreign body. Left shoulder x-ray reported: FINDINGS / IMPRESSION: No evidence of fracture or dislocation. Tele reveals atrial fibrillation with moderate ventricular response Patient is a 79-year-old female who presented with left shoulder pain after mechanical fall. No loss of consciousness. No dizziness. Does have baseline history of diastolic heart failure and chronic atrial fibrillation. Heart rate is controlled. Has been kept on Eliquis as outpatient. Previously had history of stress-induced cardiomyopathy. Does have chronically elevated (mildly) troponin. Troponin was mildly elevated and flat. Presentation is more in favor of demand ischemia. ACS is not considered. Mildly acute on chronic diastolic heart failure can be considered. Mechanical fall Left shoulder pain Chronically left leg edema Left superior pubic symphysis fracture UTI Acute on chronic diastolic heart failure Morbid obesity Poor functional capacity Abnormal troponin, chronic Persistent atrial fibrillation Anemia, chronic Pulmonary hypertension/pulmonary fibrosis, history Cellulitis of left lower extremities? Cardiac suggestion for management: Manage on telemetry IV diuresis (on Bumex) Follow-up electrolytes and kidney function tests and correct abnormalities. Keep potassium above 4 and magnesium above Long-term continuation of anticoagulation is advised (on Eliquis). ACS is not considered Evaluation and management of sepsis/UTI as per primary team Evaluation and management of possible pubic fracture as per primary team Evaluation and management of shoulder pain as per primary / orthopaedics Imaging of left shoulder as per primary Further evaluation and management depends on the above and clinical course A total of 55 minutes was spent reviewing the patient record, examining the patient, making a diagnostic and therapeutic plan, discussing this plan with medical personnel, following up on diagnostic studies and following the patient for clinical stability excluding any and all procedures. At least 50% of this time was spent in direct, [id number] contact. Thank you for allowing me to participate in this patient's care. Further recommendations will depend on patient's clinical course. Please do not hesitate to contact me if you have any questions or concerns. This medical document was created using electronic medical record system with [employer] computerized dictation system. Although this document has been carefully reviewed, there may still be some phonetic and typographical errors. These areas are purely typographical due to the imperfection of the software programs, and do not reflect any compromise in the patient's medical care. Plan discussed with: Patient, Other (nurse) FRENCH ARVIZU MD October 30, 2024 12:15
--- NOTE | 2024-10-30 13:16 | DVHINCON2 ---
Date of service: October 29, 2024 Reason for Consultation Left shoulder and hip pain Past Medical History Morbid obesity, diabetes mellitus, hypertension, hyperlipidemia, chronic atrial fibrillation, diastolic heart failure, pulmonary fibrosis, pulmonary hypertension, history of stress-induced cardiomyopathy, anemia, GERD, CKD, anxiety disorder, peripheral artery disease, thyroid nodule, history of Toussaint's cyst in lower extremity, chronic left leg edema and old history of hysterectomy/cholecystectomy. Family History: Cervical cancer 19 CHILD FHx: heart disease G8 MOTHER, , Age: 60 years and older G8 FATHER, , Age: 60 years and older Allergies: Coded Allergies: NO KNOWN ALLERGIES (Unverified , 07/06/24) Home Meds Reported Medications Ascorbic Acid (VITAMIN C TABLET) 500 Mg Tb, 500 MG GT, TAB 09/15/24 Ascorbic Acid (VITAMIN C TABLET) 500 Mg Tb, 2 TAB PO DAILY, #30 TAB 3 Refills 09/15/24 Cholecalciferol (D3) 2,000 Unit Cap, 2000 UNIT PO, CAP 09/15/24 [place]-3 Fatty Acids (Fish Oil) 1,000 Mg Cap, 1000 MG PO, CAP 09/15/24 Magnesium Oxide (MAGNESIUM OXIDE) 400 Mg Tab, 250 MG PO, TAB 09/15/24 Apixaban Base (ELIQUIS) 5 Mg Tab, 1 TAB PO BID 09/14/24 Atorvastatin Calcium (ATORVASTATIN CALCIUM) 20 Mg Tab, 1 TAB PO HS 07/07/24 Diltiazem Hcl (Dilt-Xr) 120 Mg Cap, 1 TAB PO DAILY 07/07/24 Fenofibrate (Fenofibrate) 160 Mg Tab, 1 TAB PO DAILY 07/07/24 Hydralazine Hcl (Hydralazine Hcl) 50 Mg Tab, 1 TAB PO BID 07/07/24 Benazepril Hcl (Benazepril Hcl) 20 Mg Tab, 1 TAB PO BID 07/07/24 Metoprolol Tartrate (Lopressor) 25 Mg Tb, 3 TAB PO BID 07/07/24 Metformin Hydrochloride (Metformin Hcl) 1,000 Mg Tab, 500 MG PO BID 07/07/24 Current Medications Current Medications Medications (Trade) Dose Ordered Sig/Nicholas Route PRN Reason Start Time Stop Time Status Last Admin Patient Own Medication 1 tab HS PO 10/29/24 22:00 Ceftriaxone Sodium 50 ml @ 100 mls/hr DAILY@2100 IV 10/29/24 21:00 Cancel Atorvastatin Calcium (Lipitor) 40 mg HS PO 10/29/24 22:00 10/29/24 21:43 Bumetanide (Bumex Injection) 1 mg BIDD IV 10/29/24 18:00 10/29/24 09:50 DC Bumetanide (Bumex Injection) 1 mg DAILY IV 10/30/24 10:00 10/30/24 09:41 Review of Systems 10 point ROS neg except per HPI Vital Signs Vital Signs Date Time Temp Pulse Resp B/P (MAP) Pulse Ox O2 Delivery O2 Flow Rate FiO2 10/30/24 12:50 97.3 72 18 114/62 (79) 98 97.3 10/30/24 08:00 Room Air* 0 21 Physical Exam NAD LUE: shoulder FF 60/ Abd 45 LLE: pain wtih PROM at hip Labs/Diagnostic Data Labs Test 10/30/24 07:19 10/29/24 05:26 10/28/24 22:28 10/28/24 21:46 Range/Units White Blood Count 4.5 4.4-10.8 10^3/uL Red Blood Count 3.48 L 4.0-5.20 10^6/uL Hemoglobin 10.8 L 12.2-16.2 g/dL Hematocrit 32.3 L 36.0-46.0 % Mean Corpuscular Volume 92.8 80.0-100.0 fL Mean Corpuscular Hemoglobin 31.0 28.0-32.0 pg Mean Corpuscular Hemoglobin Concent 33.4 32.0-36.0 g/dL Red Cell Distribution Width 14.2 11.8-14.3 % Platelet Count 262 140-450 10^3/uL Mean Platelet Volume 7.5 6.9-10.8 fL Neutrophils (%) (Auto) 69.9 37.0-80.0 % Lymphocytes (%) (Auto) 19.3 10.0-50.0 % Monocytes (%) (Auto) 8.4 0.0-12.0 % Eosinophils (%) (Auto) 1.8 0.0-7.0 % Basophils (%) (Auto) 0.6 0.0-2.0 % Neutrophils # (Auto) 3.2 1.6-8.6 10 ^3/uL Lymphocytes # (Auto) 0.9 0.4-5.4 10 ^3/uL Monocytes # (Auto) 0.4 0-1.3 10 ^3/uL Eosinophils # (Auto) 0.1 0-0.8 10 ^3/uL Basophils # (Auto) 0 0-0.2 10 ^3/uL Nucleated Red Blood Cells 0.1 % Sodium Level 141 136-145 mmol/L Potassium Level 3.9 3.5-5.1 mmol/L Chloride Level 106 98-107 mmol/L Carbon Dioxide Level 24 20-31 mmol/L Anion Gap 11 5-15 Blood Urea Nitrogen 32 H 9-23 mg/dL Creatinine 1.86 H 0.550-1.02 mg/dL Glomerular Filtration Rate Calc 28 >90 mL/min BUN/Creatinine Ratio 17.2 10.0-20.0 Serum Glucose 105 74-106 mg/dL Calcium Level 10.0 8.7-10.4 mg/dL Random Vancomycin Level 15.1 H 5-10 ug/mL Total Bilirubin 0.4 0.2-1.0 mg/dL Aspartate Amino Transferase (AST) 36 13-40 U/L Alanine Aminotransferase (ALT) 22 7-40 U/L Alkaline Phosphatase 49 46-116 U/L Total Protein 5.7 5.7-8.2 g/dL Albumin 3.4 3.2-4.8 g/dL Influenza Type A Antigen Negative Negative Influenza Type B Antigen Negative Negative SARS-CoV-2 Antigen (Rapid) Negative NEGATIVE D-Dimer, Quantitative 0.30 0.0-0.49 mg/L FEU Troponin I High Sensitivity 135 *H </=34 ng/L Thyroid Stimulating Hormone (TSH) 2.20 0.55-4.78 uIU/mL Test 10/28/24 19:49 10/28/24 18:45 Range/Units Urine Color Colorless Yellow Urine Clarity Clear Clear Urine pH 5.5 5.0-9.0 Urine Specific [place] 1.005 1.001-1.035 Urine Protein 1+ H Negative Urine Ketones Negative Negative Urine Blood Negative Negative /uL Urine Nitrite Negative Negative Urine Bilirubin Negative Negative Urine Urobilinogen Normal Negative mg/dL Urine Leukocyte Esterase 1+ Negative /uL Urine RBC 1 0 - 4 /hpf Urine Microscopic WBC 19 H 0-5 /HPF Urine Squamous Epithelial Cells Few <5 /hpf Urine Bacteria Many H None Seen /hpf Urine Glucose Normal Normal mg/dL B-Type Natriuretic Peptide 235.88 0-100 pg/mL Microbiology Date/Time Source Procedure Growth Status 10/29/24 01:00 Nose MRSA Screen - Final Complete 10/28/24 22:27 Blood Blood Culture - Preliminary NO GROWTH AFTER 24 HOURS OF INCUBATION. Resulted 10/28/24 19:49 Voided Urine Urine Culture - Preliminary Resulted Plan/Recommendation 79 yo F with left shoulder rotator cuff tear/ superior pubic rami fracture 1. WBAT 2. Pain controlled 3. PT 4. fu in [facility] orth[facility] clinic in 4 weeks Plan discussed with: Patient YESENIA BABB MD October 30, 2024 13:15
[2024-10-31 01:00] VITALS: BP 122/56; PULSE 96; RESP 17; TEMP 97.7; O2SAT 94
[2024-10-31 05:00] VITALS: BP 129/85; PULSE 85; RESP 19; TEMP 97.8; O2SAT 98
[2024-10-31 07:23] LABS: Basophils # (auto) 0 10 ^3/uL (0-0.2); Basophils % (auto) 0.5 % (0.0-2.0); Eosinophils # (auto) 0.1 10 ^3/uL (0-0.8); Eosinophils % (auto) 1.8 % (0.0-7.0); Hemoglobin 10.5 g/dL (12.2-16.2); Lymphocytes # (auto) 0.8 10 ^3/uL (0.4-5.4); Lymphocytes % (auto) 18.6 % (10.0-50.0); Mean Corpuscular Hemoglobin 31.1 pg (28.0-32.0); Mean Corpuscular Hgb Conc. 33.8 g/dL (32.0-36.0); Mean Corpuscular Volume 92.1 fL (80.0-100.0); Monocytes # (auto) 0.4 10 ^3/uL (0-1.3); Monocytes % (auto) 8.8 % (0.0-12.0); Neutrophils # (auto) 2.9 10 ^3/uL (1.6-8.6); Neutrophils % (auto) 70.3 % (37.0-80.0); Nucleated Red Blood Cells % 0.1 %; Platelet Count (auto) 252 10^3/uL (140-450); Red Blood Cells 3.37 10^6/uL (4.0-5.20); White Blood Cell 4.2 10^3/uL (4.4-10.8)
[2024-10-31 07:36] LABS: Anion Gap 9 (5-15); Carbon Dioxide 24 mmol/L (20-31); Chloride 106 mmol/L (98-107); Sodium 139 mmol/L (136-145)
[2024-10-31 07:37] LABS: Calcium 9.9 mg/dL (8.7-10.4)
[2024-10-31 07:42] LABS: BUN/Creatinine Ratio 15.8 (10.0-20.0); Blood Urea Nitrogen 29 mg/dL (9-23); Glucose 108 mg/dL (74-106); Potassium 3.3 mmol/L (3.5-5.1)
[2024-10-31 08:00] VITALS: PULSE 75
[2024-10-31 08:45] VITALS: BP 127/67; PULSE 82; RESP 18; TEMP 97.9; O2SAT 95
--- NOTE | 2024-10-31 11:06 | DVHDS2 ---
Discharge Summary Date of Admission October 28, 2024 at 21:44 Date of Discharge: October 31, 2024 Labs/Diagnostic Data: Laboratory Results Test 10/31/24 05:52 10/29/24 05:26 10/28/24 22:28 10/28/24 21:46 White Blood Count 4.2 10^3/uL (4.4-10.8) Red Blood Count 3.37 10^6/uL (4.0-5.20) Hemoglobin 10.5 g/dL (12.2-16.2) Hematocrit 31.0 % (36.0-46.0) Mean Corpuscular Volume 92.1 fL (80.0-100.0) Mean Corpuscular Hemoglobin 31.1 pg (28.0-32.0) Mean Corpuscular Hemoglobin Concent 33.8 g/dL (32.0-36.0) Red Cell Distribution Width 14.0 % (11.8-14.3) Platelet Count 252 10^3/uL (140-450) Mean Platelet Volume 7.7 fL (6.9-10.8) Neutrophils (%) (Auto) 70.3 % (37.0-80.0) Lymphocytes (%) (Auto) 18.6 % (10.0-50.0) Monocytes (%) (Auto) 8.8 % (0.0-12.0) Eosinophils (%) (Auto) 1.8 % (0.0-7.0) Basophils (%) (Auto) 0.5 % (0.0-2.0) Neutrophils # (Auto) 2.9 10 ^3/uL (1.6-8.6) Lymphocytes # (Auto) 0.8 10 ^3/uL (0.4-5.4) Monocytes # (Auto) 0.4 10 ^3/uL (0-1.3) Eosinophils # (Auto) 0.1 10 ^3/uL (0-0.8) Basophils # (Auto) 0 10 ^3/uL (0-0.2) Nucleated Red Blood Cells 0.1 % Sodium Level 139 mmol/L (136-145) Potassium Level 3.3 mmol/L (3.5-5.1) Chloride Level 106 mmol/L (98-107) Carbon Dioxide Level 24 mmol/L (20-31) Anion Gap 9 (5-15) Blood Urea Nitrogen 29 mg/dL (9-23) Creatinine 1.84 mg/dL (0.550-1.02) Glomerular Filtration Rate Calc 28 mL/min (>90) BUN/Creatinine Ratio 15.8 (10.0-20.0) Serum Glucose 108 mg/dL (74-106) Calcium Level 9.9 mg/dL (8.7-10.4) Random Vancomycin Level 10.1 ug/mL (5-10) Total Bilirubin 0.4 mg/dL (0.2-1.0) Aspartate Amino Transferase (AST) 36 U/L (13-40) Alanine Aminotransferase (ALT) 22 U/L (7-40) Alkaline Phosphatase 49 U/L (46-116) Total Protein 5.7 g/dL (5.7-8.2) Albumin 3.4 g/dL (3.2-4.8) Influenza Type A Antigen Negative (Negative) Influenza Type B Antigen Negative (Negative) SARS-CoV-2 Antigen (Rapid) Negative (NEGATIVE) D-Dimer, Quantitative 0.30 mg/L FEU (0.0-0.49) Troponin I High Sensitivity 135 ng/L (</=34) Thyroid Stimulating Hormone (TSH) 2.20 uIU/mL (0.55-4.78) Test 10/28/24 19:49 10/28/24 18:45 Urine Color Colorless (Yellow) Urine Clarity Clear (Clear) Urine pH 5.5 (5.0-9.0) Urine Specific [place] 1.005 (1.001-1.035) Urine Protein 1+ (Negative) Urine Ketones Negative (Negative) Urine Blood Negative /uL (Negative) Urine Nitrite Negative (Negative) Urine Bilirubin Negative (Negative) Urine Urobilinogen Normal mg/dL (Negative) Urine Leukocyte Esterase 1+ /uL (Negative) Urine RBC 1 /hpf (0 - 4) Urine Microscopic WBC 19 /HPF (0-5) Urine Squamous Epithelial Cells Few /hpf (<5) Urine Bacteria Many /hpf (None Seen) Urine Glucose Normal mg/dL (Normal) B-Type Natriuretic Peptide 235.88 pg/mL (0-100) Other Laboratory Tests 10/31/24 05:52 Brief Hx & Hospital Course: Diagnoses: Status post fall Left superior pubic ramus fracture History of CHF Hypertension Type 2 diabetes Chronic kidney disease Paroxysmal atrial fibrillation Left leg cellulitis Hypokalemia Left shoulder rotator cuff tear 79-year-old female who fell 2 weeks ago at [facility] and she has been complaining of left shoulder pain and right leg pain Here evaluation shows fracture of the left superior pubic rami No other injuries She has a history of atrial fibrillation status post ablation, heart failure, hypertension, chronic kidney disease, type 2 diabetes MRI of left shoulder showed full-thickness supraspinatus tear and partial- thickness infraspinatus tear She was seen by Orthopedic surgery and recommended for outpatient management Regarding her cellulitis she was given IV antibiotics She will be sent to the SNF on p.o. antibiotics for few more days Resume home medications Stable for discharge Condition at Discharge: Stable Final Diagnosis/Problems List Status post fall Left superior pubic ramus fracture History of CHF Hypertension Type 2 diabetes Chronic kidney disease Paroxysmal atrial fibrillation Left leg cellulitis Hypokalemia Left shoulder rotator cuff tear [facility]charge Disposition: [facility] Discharge Will this Physician continue t: No Discharge Instruct/Medications Diet: Consistent carbohydrate, Cardiac 2g Na,low cholest Activity: No Restrictions, As Tolerated Follow Up/Referral: Dr. Lackey Medications: See the med rec Discharge Statement: "Patient was advised to return to the ER or call 911 if any headaches, dizziness, shortness of breath, chest pain, abdominal pain, bleeding, fevers, or worsening of medical condition. Patient was counseled about treatment plan, medications, possible side effects, patientverbalized understanding. All questions were answered to the best of my ability. This discharge took greater then 30 minutes in planning, reviewing documentation, counseling the patient, and discussing with other team members." ASSESSMENT ASSESSMENT Assessment Status post fall Left superior pubic ramus fracture History of CHF Hypertension Type 2 diabetes Chronic kidney disease Paroxysmal atrial fibrillation Left leg cellulitis Hypokalemia Left shoulder rotator cuff tear Date of Service: October 31, 2024 Billing Provider: ADE MCLAUGHLIN MD Common Visit Codes: 14535-YSP/OBS DISCH DAY >30min ADE MCLAUGHLIN MD October 31, 2024 11:06
--- NOTE | 2024-10-31 11:15 | DVHPN2 ---
Progress Note - Dictate Date Seen: October 31, 2024 Medical Necessity Reason Pt with a Central, PICC or Fol: No vital signs Vital Sign Date Time Temp Pulse Resp B/P (MAP) Pulse Ox O2 Delivery O2 Flow Rate FiO2 10/31/24 10:29 134/80 10/31/24 10:29 68 10/31/24 08:45 97.9 18 95 97.9 10/31/24 07:52 Room Air* 0 21 Total Intake and Output 10/30/24 10/30/24 10/31/24 15:00 23:00 07:00 Intake Total 820 ml 2500 ml 520 ml Output Total 1600 ml Balance 820 ml 900 ml 520 ml medications Current Medications Medications Dose Ordered Sig/Nicholas Route Start Time Stop Time Status Last Admin Dose Admin Sodium Chloride 10 ml Q8HR IV 10/28/24 22:00 10/31/24 09:06 10 ML Docusate Sodium 100 mg BIDPRN PRN PO 10/28/24 21:45 Acetaminophen 650 mg Q6HP PRN PO 10/28/24 21:45 Nitroglycerin 0.4 mg Q5MINP PRN SL 10/28/24 21:45 Apixaban 5 mg BID PO 10/28/24 22:00 10/31/24 09:06 5 MG Ascorbic Acid 1,000 mg DAILY PO 10/29/24 10:00 10/31/24 09:05 1,000 MG Diltiazem HCl 120 mg DAILY PO 10/29/24 10:00 10/31/24 10:29 120 MG Metoprolol Tartrate 75 mg BID PO 10/28/24 22:00 10/31/24 09:06 75 MG Benazepril HCl 20 mg BID PO 10/29/24 10:00 10/31/24 10:29 20 MG Patient Own Medication 1 tab HS PO 10/29/24 22:00 Hydralazine HCl 50 mg BID PO 10/29/24 10:00 10/31/24 10:29 50 MG Vancomycin HCl 0 ml @ 0 mls/hr UD IV 10/28/24 22:00 Pantoprazole Sodium 40 mg DAILY@0600 PO 10/29/24 06:00 10/31/24 06:29 40 MG Ceftriaxone Sodium 50 ml @ 100 mls/hr DAILY@2100 IV 10/29/24 21:00 Cancel Atorvastatin Calcium 40 mg HS PO 10/29/24 22:00 10/30/24 21:26 40 MG Ampicillin Sodium/ Sulbactam Sodium 3 gm/Sodium Chloride 100 ml @ 100 mls/hr Q12H IV 10/29/24 07:30 10/31/24 06:31 100 MLS/HR Bumetanide 1 mg DAILY IV 10/30/24 10:00 10/31/24 09:11 1 MG laboratory and microbiology Laboratory Tests 10/31/24 05:52 Test 10/31/24 05:52 Range/Units Serum Glucose 108 H 74-106 mg/dL Assessment/Plan 79-year-old female presented to the hospital from skilled nurse facility to have imaging of left shoulder. Reportedly, the patient had a mechanical fall in the shower around2 weeks ago. She denies loss of consciousness and dizziness. She mentions that she could not reach out to a handle [place] while in the shower and fell. As there has been some left shoulder pain since then, the patient is transferred for possible MRI of the shoulder. She also mentions occasional left leg swelling (long-term). Cardiology was involved for cardiac aspects of care. Patient is known to our practice from before. Patient does have history of atrial fibrillation for which has had twice ablation done (back on long- term/persistent atrial fibrillation). She is on chronic anticoagulation (Eliquis). Denies chest pains. Denies shortness of breath. Denies palpitations. Denies loss of consciousness. Obese female, not in acute distress. Lying flat in bed. No JVD. Mucosa is pink and wet. No carotid bruit. Lungs are clear to auscultation. Cardiac: Irregular, systolic murmur 2/6 in apex is heard. Abdomen is obese and distended. Bowel sound is positive. There is no tenderness. No hepatomegaly. Dorsalis pedis is 2+ bilateral. Left-sided lower extremity edema is observed. 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 Echocardiogram of July 07, 2024 revealed ejection fraction of 55%, biatrial enlargement and enlarged right ventricle Echocardiogram of September 15, 2024 (performed in [facility]) reported moderate concentric left ventricular hypertrophy, restrictive LV filling, [id number] right ventricular dysfunction, left atrial enlargement, aortic stenosis (images reviewed: EF around 50% with diffuse hypokinesis and no local wall motion abnormality, no aortic stenosis) Hemoglobin: 11.4 - 10.0 - 10.8 D-dimer: 0.30 (within normal limits) Creatinine: 1.79 - 1.73 - 1.86 - 1.84 Potassium: 4.2 - 3.3 - 3.9 - 3.3 Troponin (high sensitive): 140 - 141 - 135 BNP: 235.88 TSH: 2.20 Urinalysis was positive for bacteria/white blood cell Chest x-ray revealed: IMPRESSION: No acute abnormality identified. Mild cardiomegaly. Venous Doppler of lower extremities revealed: IMPRESSION: 1. No right or left femoropopliteal venous thrombosis. 2. If clinical concern/symptoms persist or worsen, short-interval follow-up study is suggested. Pelvic x-ray reported: Fracture of the superior pubic symphysis on the left The visualized joint space is well maintained. The alignment is anatomical. There is no radiopaque foreign body. Left shoulder x-ray reported: FINDINGS / IMPRESSION: No evidence of fracture or dislocation. Tele reveals atrial fibrillation with moderate ventricular response Patient is a 79-year-old female who presented with left shoulder pain after mechanical fall. No loss of consciousness. No dizziness. Does have baseline history of diastolic heart failure and chronic atrial fibrillation. Heart rate is controlled. Has been kept on Eliquis as outpatient. Previously had history of stress-induced cardiomyopathy. Does have chronically elevated (mildly) troponin. Troponin was mildly elevated and flat. Presentation is more in favor of demand ischemia. ACS is not considered. Mildly acute on chronic diastolic heart failure can be considered. Mechanical fall Left shoulder pain Chronically left leg edema Left superior pubic symphysis fracture UTI Acute on chronic diastolic heart failure Morbid obesity Poor functional capacity Abnormal troponin, chronic Persistent atrial fibrillation Anemia, chronic Pulmonary hypertension/pulmonary fibrosis, history Cellulitis of left lower extremities? Cardiac suggestion for management: Manage on telemetry IV diuresis (on Bumex) Follow-up electrolytes and kidney function tests and correct abnormalities. Keep potassium above 4 and magnesium above Long-term continuation of anticoagulation is advised (on Eliquis). ACS is not considered Evaluation and management of sepsis/UTI as per primary team Evaluation and management of possible pubic fracture as per primary team Evaluation and management of shoulder pain as per primary / orthopaedics Imaging of left shoulder as per primary Further evaluation and management depends on the above and clinical course A total of 55 minutes was spent reviewing the patient record, examining the patient, making a diagnostic and therapeutic plan, discussing this plan with medical personnel, following up on diagnostic studies and following the patient for clinical stability excluding any and all procedures. At least 50% of this time was spent in direct, [id number] contact. Thank you for allowing me to participate in this patient's care. Further recommendations will depend on patient's clinical course. Please do not hesitate to contact me if you have any questions or concerns. This medical document was created using electronic medical record system with [employer] computerized dictation system. Although this document has been carefully reviewed, there may still be some phonetic and typographical errors. These areas are purely typographical due to the imperfection of the software programs, and do not reflect any compromise in the patient's medical care. Plan discussed with: Patient, Other (nurse) FRENCH ARVIZU MD October 31, 2024 11:15
[2024-10-31 11:35] VITALS: BP 134/80; PULSE 68; TEMP 36.6
[2024-10-31 12:58] VITALS: BP 125/72; PULSE 75; RESP 18; TEMP 97.5; O2SAT 97
== END 2024-10-31 16:30 | DRG 535 ==
LOC: EDBD 17:19 → ER 17:19 → OVERFLOW 21:44 → TELE-CENTR 23:57
PROVIDERS: ADMIT Internal Medicine; ATTEND Emergency Medicine
DX: S32.592A Other specified fracture of left pubis, initial encounter for closed fracture (principal); I50.33 Acute on chronic diastolic (congestive) heart failure; I13.0 Hypertensive heart and chronic kidney disease with heart failure and stage 1 through stage 4 chronic kidney disease, or unspecified chronic kidney disease; L03.116 Cellulitis of left lower limb; N17.9 Acute kidney failure, unspecified; N30.00 Acute cystitis without hematuria; M75.102 Unspecified rotator cuff tear or rupture of left shoulder, not specified as traumatic; N18.30 Chronic kidney disease, stage 3 unspecified; E66.01 Morbid (severe) obesity due to excess calories; I48.0 Paroxysmal atrial fibrillation; S32.512A Fracture of superior rim of left pubis, initial encounter for closed fracture; D64.9 Anemia, unspecified; I27.20 Pulmonary hypertension, unspecified; J84.10 Pulmonary fibrosis, unspecified; E78.5 Hyperlipidemia, unspecified; E11.51 Type 2 diabetes mellitus with diabetic peripheral angiopathy without gangrene; E87.6 Hypokalemia; Z68.37 Body mass index [BMI] 37.0-37.9, adult; Z20.822 Contact with and (suspected) exposure to COVID-19; F41.9 Anxiety disorder, unspecified; E11.22 Type 2 diabetes mellitus with diabetic chronic kidney disease; K21.9 Gastro-esophageal reflux disease without esophagitis; W18.2XXA Fall in (into) shower or empty bathtub, initial encounter; Z79.01 Long term (current) use of anticoagulants; Z79.899 Other long term (current) drug therapy; Z79.84 Long term (current) use of oral hypoglycemic drugs; Z90.710 Acquired absence of both cervix and uterus; Z80.49 Family history of malignant neoplasm of other genital organs; Z82.49 Family history of ischemic heart disease and other diseases of the circulatory system; Y92.89 Other specified places as the place of occurrence of the external cause; Y99.8 Other external cause status; Z90.49 Acquired absence of other specified parts of digestive tract; Y93.E1 Activity, personal bathing and showering
CPT/HCPCS: 36415; 71045; 72170; 73030; 73221; 80048; 80053; 80202; 81001; 83880; 84443; 84484; 85025; 85379; 87040; 87081; 87086; 87426; 87804; 93970; 96365; 97110; 97116; 97163; 97530; G0378